=== PATIENT | male | born 1935 | race Caucasian/White ===

== ENCOUNTER 2016-07-23 13:01 | Emergency (ER) | payer MEDICARE ==
--- NOTE | 2016-07-23 14:25 | REP ---
CT HEAD WITHOUT CONTRAST: HISTORY: Fall. Areas of decreased attenuation are present in the periventricular white matter. This represents small vessel ischemic disease. There is no intraparenchymal hemorrhage, mass or midline shift. The ventricular system and cortical sulci are dilated consistent with minimal volume loss. There is no extracerebral collection. There is no fracture. Mucosal thickening is present in the ethmoid, maxillary and sphenoid sinuses. Soft tissue densities are present in the nasal passage consistent with polyps. IMPRESSION: 1. Small vessel ischemic disease. 2. Minimal volume loss. Signed by Blake Galvez MD 07/23/2016 02:31 P
--- NOTE | 2016-07-23 14:46 | REP ---
CT CERVICAL SPINE WITHOUT CONTRAST: HISTORY: Fall. There is no acute fracture or subluxation. A disc bulge is present at the C2-3 level. Disc bulges with associated osteophyte formation are present at the C3-4 through C6-7 levels. There is minimal narrowing of the spinal canal. Uncinate process and/or facet hypertrophy are present at the C2-3 through C7-T1 levels. These findings produce minimal to moderate narrowing of the neural foramina. The C3-4 through C6-7 intervertebral discs are decreased in height consistent with disc degeneration. Osteophytes are present on C3 through C7. IMPRESSION: 1. There is no acute fracture or subluxation. 2. There is cervical spondylosis at the C2-3 through C7-T1 levels. Signed by Blake Galvez MD 07/23/2016 02:49 P
[2016-07-23] MEDS ORDERED: PERCOCET 5MG/325MG TAB As Ordered ONE (15:00)
--- NOTE | 2016-07-23 15:22 | EDDOCDS ---
Nurse's Notes [facility] Name: Chan Miranda Age: 81 yrs Sex: Male : 1935 Arrival Date: 07/23/2016 Time: 13:01 Bed 18 Private MD: Dk Yu M.D. Diagnosis: Fall due to ice and snow;Concussion Presentation: 07/23 13:07 Presenting complaint: Patient states: [place] [employer] hit his head and dsf did have LOC for a few seconds. pt does take plavix. Adult Sepsis Screening: The patient does not have new or worsening altered mentation. Patient's respiratory rate is less than 22. Systolic blood pressure is greater than 100. Patient has a qSOFA score of 0- Negative Sepsis Screen. Suicide/Homicide risk assessment- the patient denies having any suicidal and/or homicidal ideations and does not present with any other emotional, behavioral or mental health complaints. Status: Patient is not a government services professional or dependent. Transition of care: patient was not received from another setting of care. 13:07 Method Of Arrival: Walkin/Carried/Asstd dsf 13:07 Acuity: DAVID Level 2 dsf Triage Assessment: 13:07 General: Appears in no apparent distress, Behavior is appropriate for age, cooperative. dsf Pain: Location: head Pain currently is 5 out of 10 on a pain scale. Quality of pain is described as aching. Neurological: Level of Consciousness is awake, alert. Respiratory: Airway is patent Respiratory effort is even, unlabored, Respiratory pattern is regular, symmetrical. Musculoskeletal: Reports pain in neck. Historical: - Allergies: no known allergies; - Home Meds: 1. aspirin 81 mg Oral TbEC 1 tab once daily (Last dose: 07/23/2016 09:30) 2. Plavix 75 mg Oral tab 1 tab once daily (Last dose: 07/23/2016 09:30) 3. symbicort 80-4.5 mcg 2 puff twice a day (Last dose: 07/23/2016 09:30) 4. omeprazole 20 mg Oral cpDR 1 cap once daily (Last dose: 07/22/2016) 5. Flonase 50 mcg/actuation Nasal spsn 2 sprays 2 times per day (Last dose: 07/23/2016 08:30) 6. DuoNeb 0.5 mg-3 mg(2.5 mg base)/3 mL Inhl nebu 3 mL 4 times per day (Last dose: 07/23/2016 08:30) 7. 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 No barriers to communication noted, The patient speaks fluent Icelandic, Speaks appropriately for age. - Family history: Not pertinent, Not pertinent. - : The pt / caregiver states he / she is on anticoagulants: Plavix. Home medication list is obtained from the patient. - Exposure Risk Screening:: None identified. Screenin:20 Screening information is obtained from the patient. Fall risk: At risk due to prior ck1 history of falls, The following interventions are performed due to a positive Fall Risk Screen: Fall Risk is added to Special Handling on the patient Summary Screen. A Fall Risk Bracelet was applied to the patient. Side Rails are placed in the up position. A Call Hunter is given with instruction to call for help when getting out of bed. Fall Alert bracelet is placed on the patient. Assistance ADL's: requires no assistance with activities of daily living. Abuse/DV Screen: The patient / caregiver reports he/she is: not in a situation that causes fear, pain or injury. Nutritional screening: No deficits noted. Advance Directives: There is no active DNR order. home support is adequate. Assessment: 14:15 General: Appears in no apparent distress, comfortable, Behavior is appropriate for age, mlb1 cooperative. Pain: Location: head and back of neck Pain currently is 5 out of 10 on a pain scale. Neurological: Level of Consciousness is awake, alert, Oriented to person, place, time, Pupils are PERRLA. Respiratory: No deficits noted. Derm: No deficits noted. 15:21 General: Appears in no apparent distress, comfortable, Behavior is appropriate for age, ck1 cooperative. Pain: Location: head Pain currently is 1 out of 10 on a pain scale. Neurological: Level of Consciousness is awake, alert, obeys commands, Oriented to person, place, time. Cardiovascular: No deficits noted. Respiratory: Respiratory effort is unlabored, Respiratory pattern is regular, symmetrical. Derm: Skin is intact, is healthy with good turgor, Skin is pink, warm & dry. Vital Signs: 13:02 BP 168 / 90; Pulse 87; Resp 18 S; Temp 96.4(O); Pulse Ox 95% on R/A; Weight 84.37 kg gr2 (R); Height 5 ft. 9 in. (175.26 cm) (R); Pain 3/10; 15:19 BP 155 / 75; Pulse 60; Resp 18; Temp 97.3(O); Pulse Ox 97% on R/A; Pain 1/10; ck1 13:02 Body Mass Index 27.47 (84.37 kg, 175.26 cm) gr2 Vitals: 13:02 Log In Time: July 23, 2016 at 13:02. gr2 ED Course: 13:02 Patient visited by Dean Hernandez. gr2 13:02 Dk Yu is Private Physician. gr2 13:02 Patient moved to Waiting gr2 13:04 Patient visited by Dean Hernandez. gr2 13:04 Patient moved to Pre RCE gr2 13:07 Triage Initiated dsf 13:11 Patient moved to 18 dsf 13:36 Azeb Joy MD is Attending Physician. fg 13:44 Patient visited by Maxime Ford PCA. jlf 14:28 Patient visited by Azeb Joy MD. fg 14:47 Dk Yu is Referral Physician. fg 14:50 CT Head Without Contrast Returned. EDMS 14:50 CT Spine,Cervical W/o Contrast Returned. EDMS 15:19 No IV's were initiated during this patient's visit. No procedures done that require ck1 assistance. 15:20 The patient / caregiver is instructed regarding the plan of care and ED course. ck1 Administered Medications: 14:59 CANCELLED (Other Intervention Used): ketorolac 15 mg IVP once fg 15:06 Drug: oxyCODONE-acetaminophen 1 tabs [oxycodone-acetaminophen 5 mg-325 mg tablet (1 ck1 tabs)] Route: PO; Order Results: Radiology Order: CT Head Without Contrast Test: CT Head Without Contrast REASON FOR EXAMINATION: fall, on plavix; CT HEAD WITHOUT CONTRAST:; ; HISTORY: Fall.; ; Areas of decreased attenuation are present in the periventricular white matter.; This represents small vessel ischemic disease. There is no intraparenchymal; hemorrhage, mass or midline shift. The ventricular system and cortical sulci are; dilated consistent with minimal volume loss. There is no extracerebral; collection. There is no fracture. Mucosal thickening is present in the ethmoid,; maxillary and sphenoid sinuses. Soft tissue densities are present in the nasal; passage consistent with polyps.; ; IMPRESSION:; ; 1. Small vessel ischemic disease.; ; 2. Minimal volume loss.; ; ; Signed by; Blake Galvez MD 07/23/2016 02:31 P; Radiology Order: CT Spine,Cervical W/o Contrast Test: CT Spine,Cervical W/o Contrast REASON FOR EXAMINATION: fall; ; CT CERVICAL SPINE WITHOUT CONTRAST:; ; HISTORY: Fall.; ; There is no acute fracture or subluxation. A disc bulge is present at the C2-3; level. Disc bulges with associated osteophyte formation are present at the C3-4; through C6-7 levels. There is minimal narrowing of the spinal canal.; ; Uncinate process and/or facet hypertrophy are present at the C2-3 through C7-T1; levels. These findings produce minimal to moderate narrowing of the neural; foramina. The C3-4 through C6-7 intervertebral discs are decreased in height; consistent with disc degeneration. Osteophytes are present on C3 through C7.; ; IMPRESSION:; 1. There is no acute fracture or subluxation.; 2. There is cervical spondylosis at the C2-3 through C7-T1 levels.; ; ; ; ; Unreviewed; Outcome: 14:48 Discharge ordered by Provider. fg 15:20 Discharge Assessment: Patient awake, alert and oriented x 3. No cognitive and/or ck1 functional deficits noted. Patient verbalized understanding of disposition instructions. patient administered narcotics - yes. Pt provided with safe discharge. The following High Risk Discharge criteria are identified: None. Discharged to home ambulatory, with significant other. Condition: stable. Discharge instructions given to patient, Instructed on discharge instructions, follow up and referral plans. medication usage, Demonstrated understanding of instructions, medications, Pt was receptive of discharge instructions/ teaching. CT Study completed. Property :Personal belongings accompany Pt. 15:21 Patient left the ED. ck1 Signatures: Dispatcher [facility], Raulito B, RN RN mlb1 Desire TrotterRN RN ck1 Suzy Saleh,RN RN dsf Dean Hernandez gr2 Maxime Ford, KIRK [employer]T ENGINEER jlf Azeb Joy MD MD fg Corrections: (The following items were deleted from the chart) 13:07 Presenting complaint: Patient states: fell in [employer] parking lot hit his head dsf and did have LOC for a few seconds dsf 13:07 Acuity: DAVID Level 3 dsf dsf MTDD
--- NOTE | 2016-07-23 15:22 | EDDOCDS ---
Physician Documentation [facility] Name: Chan Miranda Age: 81 yrs Sex: Male : 1935 Arrival Date: 07/23/2016 Time: 13:01 Bed 18 Private MD: Dk Yu M.D. Disposition: 07/23/16 14:48 Discharged to Home/Self Care. Impression: Fall due to ice and snow, Concussion. - Condition is Stable. - Discharge Instructions: Concussion, Adult, [id number]. - Medication Reconciliation, Local Pharmacy Hours form. - Follow up: Dk Yu; When: Call to arrange an appointment; Reason: Continuance of care. - Problem is new. - Symptoms have improved. Historical: - Allergies: no known allergies; - Home Meds: 1. aspirin 81 mg Oral TbEC 1 tab once daily (Last dose: 07/23/2016 09:30) 2. Plavix 75 mg Oral tab 1 tab once daily (Last dose: 07/23/2016 09:30) 3. symbicort 80-4.5 mcg 2 puff twice a day (Last dose: 07/23/2016 09:30) 4. omeprazole 20 mg Oral cpDR 1 cap once daily (Last dose: 07/22/2016) 5. Flonase 50 mcg/actuation Nasal spsn 2 sprays 2 times per day (Last dose: 07/23/2016 08:30) 6. DuoNeb 0.5 mg-3 mg(2.5 mg base)/3 mL Inhl nebu 3 mL 4 times per day (Last dose: 07/23/2016 08:30) 7. 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 No barriers to communication noted, The patient speaks fluent Honduran, Speaks appropriately for age. - Family history: Not pertinent, Not pertinent. - : The pt / caregiver states he / she is on anticoagulants: Plavix. Home medication list is obtained from the patient. - Exposure Risk Screening:: None identified. Vital Signs: 07/23 13:02 BP 168 / 90; Pulse 87; Resp 18 S; Temp 96.4(O); Pulse Ox 95% on R/A; Weight 84.37 kg / gr2 186 lbs (R); Height 5 ft. 9 in. (175.26 cm) (R); Pain 3/10; 15:19 BP 155 / 75; Pulse 60; Resp 18; Temp 97.3(O); Pulse Ox 97% on R/A; Pain 1/10; ck1 13:02 Body Mass Index 27.47 (84.37 kg, 175.26 cm) gr2 MDM: 13:38 CT Head Without Contrast Ordered. EDMS 13:59 CT Spine,Cervical W/o Contrast Ordered. EDMS 14:47 oxyCODONE-acetaminophen 5 mg-325 mg 1 tabs PO once ordered. fg Administered Medications: 14:59 CANCELLED (Other Intervention Used): ketorolac 15 mg IVP once fg 15:06 Drug: oxyCODONE-acetaminophen 1 tabs [oxycodone-acetaminophen 5 mg-325 mg tablet (1 ck1 tabs)] Route: PO; Signatures: Dispatcher [employer] EDMS Raulito Hoover RN RN mlb1 Desire Trotter RN RN ck1 Suzy Saleh RN RN dsf Azeb Joy MD MD fg The chart was reviewed and I authenticate all verbal orders and agree with the evaluation and treatment provided.Corrections: (The following items were deleted from the chart) 14:59 14:47 ketorolac 15 mg IVP once ordered. fg fg MTDD
--- NOTE | 2016-07-25 16:23 | EDDOCDS ---
Physician Documentation [facility] Name: Chan Miranda Age: 81 yrs Sex: Male : 1935 Arrival Date: 07/23/2016 Time: 13:01 Bed 18 Private MD: Dk Yu M.D. Disposition: 07/23/16 14:48 Discharged to Home/Self Care. Impression: Fall due to ice and snow, Concussion. - Condition is Stable. - Discharge Instructions: Concussion, Adult, [id number]. - Medication Reconciliation, Local Pharmacy Hours form. - Follow up: Dk Yu; When: Call to arrange an appointment; Reason: Continuance of care. - Problem is new. - Symptoms have improved. Historical: - Allergies: no known allergies; - Home Meds: 1. aspirin 81 mg Oral TbEC 1 tab once daily (Last dose: 07/23/2016 09:30) 2. Plavix 75 mg Oral tab 1 tab once daily (Last dose: 07/23/2016 09:30) 3. symbicort 80-4.5 mcg 2 puff twice a day (Last dose: 07/23/2016 09:30) 4. omeprazole 20 mg Oral cpDR 1 cap once daily (Last dose: 07/22/2016) 5. Flonase 50 mcg/actuation Nasal spsn 2 sprays 2 times per day (Last dose: 07/23/2016 08:30) 6. DuoNeb 0.5 mg-3 mg(2.5 mg base)/3 mL Inhl nebu 3 mL 4 times per day (Last dose: 07/23/2016 08:30) 7. 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 No barriers to communication noted, The patient speaks fluent Gibraltarian, Speaks appropriately for age. - Family history: Not pertinent, Not pertinent. - : The pt / caregiver states he / she is on anticoagulants: Plavix. Home medication list is obtained from the patient. - Exposure Risk Screening:: None identified. Vital Signs: 07/23 13:02 BP 168 / 90; Pulse 87; Resp 18 S; Temp 96.4(O); Pulse Ox 95% on R/A; Weight 84.37 kg / gr2 186 lbs (R); Height 5 ft. 9 in. (175.26 cm) (R); Pain 3/10; 15:19 BP 155 / 75; Pulse 60; Resp 18; Temp 97.3(O); Pulse Ox 97% on R/A; Pain 1/10; ck1 13:02 Body Mass Index 27.47 (84.37 kg, 175.26 cm) gr2 MDM: 13:38 CT Head Without Contrast Ordered. EDMS 13:59 CT Spine,Cervical W/o Contrast Ordered. EDMS 14:47 oxyCODONE-acetaminophen 5 mg-325 mg 1 tabs PO once ordered. fg 07/24 07:11 T-Sheet-- Draft Copy was scanned into [employer] and attached to record. gb Administered Medications: 07/23 14:59 CANCELLED (Other Intervention Used): ketorolac 15 mg IVP once fg 15:06 Drug: oxyCODONE-acetaminophen 1 tabs [oxycodone-acetaminophen 5 mg-325 mg tablet (1 ck1 tabs)] Route: PO; Signatures: Dispatcher [employer] EDAmelia Cruz, Félix Reg gb Raulito Hoover RN RN mlb1 Desire Trotter RN RN ck1 Suzy Saleh RN RN dsf Azeb Joy MD MD fg The chart was reviewed and I authenticate all verbal orders and agree with the evaluation and treatment provided.Corrections: (The following items were deleted from the chart) 14:59 14:47 ketorolac 15 mg IVP once ordered. fg fg Attachments: 07/24 07:11 T-Sheet-- Draft Copy gb Chart Complete MTDD
--- NOTE | 2016-07-25 16:23 | EDDOCDS ---
Nurse's Notes [facility] Name: Chan Miranda Age: 81 yrs Sex: Male : 1935 Arrival Date: 07/23/2016 Time: 13:01 Bed 18 Private MD: Dk Yu M.D. Diagnosis: Fall due to ice and snow;Concussion Presentation: 07/23 13:07 Presenting complaint: Patient states: [place] [employer] [place] hit his head and dsf did have LOC for a few seconds. pt does take plavix. Adult Sepsis Screening: The patient does not have new or worsening altered mentation. Patient's respiratory rate is less than 22. Systolic blood pressure is greater than 100. Patient has a qSOFA score of 0- Negative Sepsis Screen. Suicide/Homicide risk assessment- the patient denies having any suicidal and/or homicidal ideations and does not present with any other emotional, behavioral or mental health complaints. Status: Patient is not a director human services or dependent. Transition of care: patient was not received from another setting of care. 13:07 Method Of Arrival: Walkin/Carried/Asstd dsf 13:07 Acuity: DAVID Level 2 dsf Triage Assessment: 13:07 General: Appears in no apparent distress, Behavior is appropriate for age, cooperative. dsf Pain: Location: head Pain currently is 5 out of 10 on a pain scale. Quality of pain is described as aching. Neurological: Level of Consciousness is awake, alert. Respiratory: Airway is patent Respiratory effort is even, unlabored, Respiratory pattern is regular, symmetrical. Musculoskeletal: Reports pain in neck. Historical: - Allergies: no known allergies; - Home Meds: 1. aspirin 81 mg Oral TbEC 1 tab once daily (Last dose: 07/23/2016 09:30) 2. Plavix 75 mg Oral tab 1 tab once daily (Last dose: 07/23/2016 09:30) 3. symbicort 80-4.5 mcg 2 puff twice a day (Last dose: 07/23/2016 09:30) 4. omeprazole 20 mg Oral cpDR 1 cap once daily (Last dose: 07/22/2016) 5. Flonase 50 mcg/actuation Nasal spsn 2 sprays 2 times per day (Last dose: 07/23/2016 08:30) 6. DuoNeb 0.5 mg-3 mg(2.5 mg base)/3 mL Inhl nebu 3 mL 4 times per day (Last dose: 07/23/2016 08:30) 7. 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 No barriers to communication noted, The patient speaks fluent Wolof, Speaks appropriately for age. - Family history: Not pertinent, Not pertinent. - : The pt / caregiver states he / she is on anticoagulants: Plavix. Home medication list is obtained from the patient. - Exposure Risk Screening:: None identified. Screenin:20 Screening information is obtained from the patient. Fall risk: At risk due to prior ck1 history of falls, The following interventions are performed due to a positive Fall Risk Screen: Fall Risk is added to Special Handling on the patient Summary Screen. A Fall Risk Bracelet was applied to the patient. Side Rails are placed in the up position. A Call Hunter is given with instruction to call for help when getting out of bed. Fall Alert bracelet is placed on the patient. Assistance ADL's: requires no assistance with activities of daily living. Abuse/DV Screen: The patient / caregiver reports he/she is: not in a situation that causes fear, pain or injury. Nutritional screening: No deficits noted. Advance Directives: There is no active DNR order. home support is adequate. Assessment: 14:15 General: Appears in no apparent distress, comfortable, Behavior is appropriate for age, mlb1 cooperative. Pain: Location: head and back of neck Pain currently is 5 out of 10 on a pain scale. Neurological: Level of Consciousness is awake, alert, Oriented to person, place, time, Pupils are PERRLA. Respiratory: No deficits noted. Derm: No deficits noted. 15:21 General: Appears in no apparent distress, comfortable, Behavior is appropriate for age, ck1 cooperative. Pain: Location: head Pain currently is 1 out of 10 on a pain scale. Neurological: Level of Consciousness is awake, alert, obeys commands, Oriented to person, place, time. Cardiovascular: No deficits noted. Respiratory: Respiratory effort is unlabored, Respiratory pattern is regular, symmetrical. Derm: Skin is intact, is healthy with good turgor, Skin is pink, warm & dry. Vital Signs: 13:02 BP 168 / 90; Pulse 87; Resp 18 S; Temp 96.4(O); Pulse Ox 95% on R/A; Weight 84.37 kg gr2 (R); Height 5 ft. 9 in. (175.26 cm) (R); Pain 3/10; 15:19 BP 155 / 75; Pulse 60; Resp 18; Temp 97.3(O); Pulse Ox 97% on R/A; Pain 1/10; ck1 13:02 Body Mass Index 27.47 (84.37 kg, 175.26 cm) gr2 Vitals: 13:02 Log In Time: July 23, 2016 at 13:02. gr2 ED Course: 13:02 Patient visited by Dean Hernandez. gr2 13:02 Dk Yu is Private Physician. gr2 13:02 Patient moved to Waiting gr2 13:04 Patient visited by Dean Hernandez. gr2 13:04 Patient moved to Pre RCE gr2 13:07 Triage Initiated dsf 13:11 Patient moved to 18 dsf 13:36 Azeb Joy MD is Attending Physician. fg 13:44 Patient visited by Maxime Ford PCA. jlf 14:28 Patient visited by Azeb Joy MD. fg 14:47 Dk Yu is Referral Physician. fg 14:50 CT Head Without Contrast Returned. EDMS 14:50 CT Spine,Cervical W/o Contrast Returned. EDMS 15:19 No IV's were initiated during this patient's visit. No procedures done that require ck1 assistance. 15:20 The patient / caregiver is instructed regarding the plan of care and ED course. ck1 07/24 07:11 T-Sheet-- Draft Copy was scanned into [employer] and attached to record. gb Administered Medications: 07/23 14:59 CANCELLED (Other Intervention Used): ketorolac 15 mg IVP once fg 15:06 Drug: oxyCODONE-acetaminophen 1 tabs [oxycodone-acetaminophen 5 mg-325 mg tablet (1 ck1 tabs)] Route: PO; Order Results: Radiology Order: CT Head Without Contrast Test: CT Head Without Contrast REASON FOR EXAMINATION: fall, on plavix; CT HEAD WITHOUT CONTRAST:; ; HISTORY: Fall.; ; Areas of decreased attenuation are present in the periventricular white matter.; This represents small vessel ischemic disease. There is no intraparenchymal; hemorrhage, mass or midline shift. The ventricular system and cortical sulci are; dilated consistent with minimal volume loss. There is no extracerebral; collection. There is no fracture. Mucosal thickening is present in the ethmoid,; maxillary and sphenoid sinuses. Soft tissue densities are present in the nasal; passage consistent with polyps.; ; IMPRESSION:; ; 1. Small vessel ischemic disease.; ; 2. Minimal volume loss.; ; ; Signed by; Blake Galvez MD 07/23/2016 02:31 P; Radiology Order: CT Spine,Cervical W/o Contrast Test: CT Spine,Cervical W/o Contrast REASON FOR EXAMINATION: fall; CT CERVICAL SPINE WITHOUT CONTRAST:; ; HISTORY: Fall.; ; There is no acute fracture or subluxation. A disc bulge is present at the C2-3; level. Disc bulges with associated osteophyte formation are present at the C3-4; through C6-7 levels. There is minimal narrowing of the spinal canal. Uncinate; process and/or facet hypertrophy are present at the C2-3 through C7-T1 levels.; These findings produce minimal to moderate narrowing of the neural foramina. The; C3-4 through C6-7 intervertebral discs are decreased in height consistent with; disc degeneration. Osteophytes are present on C3 through C7.; ; IMPRESSION:; ; 1. There is no acute fracture or subluxation.; ; 2. There is cervical spondylosis at the C2-3 through C7-T1 levels.; ; ; Signed by; Blake Galvez MD 07/23/2016 02:49 P; Outcome: 14:48 Discharge ordered by Provider. fg 15:20 Discharge Assessment: Patient awake, alert and oriented x 3. No cognitive and/or ck1 functional deficits noted. Patient verbalized understanding of disposition instructions. patient administered narcotics - yes. Pt provided with safe discharge. The following High Risk Discharge criteria are identified: None. Discharged to home ambulatory, with significant other. Condition: stable. Discharge instructions given to patient, Instructed on discharge instructions, follow up and referral plans. medication usage, Demonstrated understanding of instructions, medications, Pt was receptive of discharge instructions/ teaching. CT Study completed. Property :Personal belongings accompany Pt. 15:21 Patient left the ED. ck1 Signatures: Dispatcher [employer] EDMS Amelia Zamora, Reg Reg gb Sheffield, Raulito Ro, RN RN mlb1 Desire TrotterRN RN ck1 Suzy Saleh RN RN dsf Dean Hernandez gr2 Maxime Ford, BRIQUETTE MOLDER BRIQUETTE MOLDER jlf Azeb Joy MD MD fg Corrections: (The following items were deleted from the chart) 13:07 Presenting complaint: Patient states: fell in [employer] [facility] [place] lot hit his head dsf and did have LOC for a few seconds dsf 13: 13:07 Acuity: DAVID Level 3 dsf dsf Chart Complete MTDD
--- NOTE | 2016-07-25 16:23 | EDDOCDS ---
Physician Documentation [facility] Name: Chan Miranda Age: 81 yrs Sex: Male : 1935 Arrival Date: 07/23/2016 Time: 13:01 Bed 18 Private MD: Dk Yu M.D. Disposition: 07/23/16 14:48 Discharged to Home/Self Care. Impression: Fall due to ice and snow, Concussion. - Condition is Stable. - Discharge Instructions: Concussion, Adult, [id number]. - Medication Reconciliation, Local Pharmacy Hours form. - Follow up: Dk Yu; When: Call to arrange an appointment; Reason: Continuance of care. - Problem is new. - Symptoms have improved. Historical: - Allergies: no known allergies; - Home Meds: 1. aspirin 81 mg Oral TbEC 1 tab once daily (Last dose: 07/23/2016 09:30) 2. Plavix 75 mg Oral tab 1 tab once daily (Last dose: 07/23/2016 09:30) 3. symbicort 80-4.5 mcg 2 puff twice a day (Last dose: 07/23/2016 09:30) 4. omeprazole 20 mg Oral cpDR 1 cap once daily (Last dose: 07/22/2016) 5. Flonase 50 mcg/actuation Nasal spsn 2 sprays 2 times per day (Last dose: 07/23/2016 08:30) 6. DuoNeb 0.5 mg-3 mg(2.5 mg base)/3 mL Inhl nebu 3 mL 4 times per day (Last dose: 07/23/2016 08:30) 7. 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 No barriers to communication noted, The patient speaks fluent Fijian, Speaks appropriately for age. - Family history: Not pertinent, Not pertinent. - : The pt / caregiver states he / she is on anticoagulants: Plavix. Home medication list is obtained from the patient. - Exposure Risk Screening:: None identified. Vital Signs: 07/23 13:02 BP 168 / 90; Pulse 87; Resp 18 S; Temp 96.4(O); Pulse Ox 95% on R/A; Weight 84.37 kg / gr2 186 lbs (R); Height 5 ft. 9 in. (175.26 cm) (R); Pain 3/10; 15:19 BP 155 / 75; Pulse 60; Resp 18; Temp 97.3(O); Pulse Ox 97% on R/A; Pain 1/10; ck1 13:02 Body Mass Index 27.47 (84.37 kg, 175.26 cm) gr2 MDM: 13:38 CT Head Without Contrast Ordered. EDMS 13:59 CT Spine,Cervical W/o Contrast Ordered. EDMS 14:47 oxyCODONE-acetaminophen 5 mg-325 mg 1 tabs PO once ordered. fg 07/24 07:11 T-Sheet-- Draft Copy was scanned into [employer] and attached to record. gb Administered Medications: 07/23 14:59 CANCELLED (Other Intervention Used): ketorolac 15 mg IVP once fg 15:06 Drug: oxyCODONE-acetaminophen 1 tabs [oxycodone-acetaminophen 5 mg-325 mg tablet (1 ck1 tabs)] Route: PO; Signatures: Dispatcher [employer] EDAmelia Cruz, Félix Reg gb Raulito Hoover RN RN mlb1 Desire Trotter RN RN ck1 Suzy Saleh RN RN dsf Azeb Joy MD MD fg The chart was reviewed and I authenticate all verbal orders and agree with the evaluation and treatment provided.Corrections: (The following items were deleted from the chart) 14:59 14:47 ketorolac 15 mg IVP once ordered. fg fg Attachments: 07/24 07:11 T-Sheet-- Draft Copy gb Chart Complete MTDD
== END 2016-07-23 15:21 | disposition home or self-care (01) ==
LOC: M ED 13:01
DX: S06.0X0A Concussion without loss of consciousness, initial encounter (principal); W00.9XXA Unspecified fall due to ice and snow, initial encounter; Y92.512 Supermarket, store or market as the place of occurrence of the external cause; Y93.89 Activity, other specified; Y99.8 Other external cause status; J44.9 Chronic obstructive pulmonary disease, unspecified; J45.909 Unspecified asthma, uncomplicated; K21.9 Gastro-esophageal reflux disease without esophagitis; Z86.73 Personal history of transient ischemic attack (TIA), and cerebral infarction without residual deficits; Z79.02 Long term (current) use of antithrombotics/antiplatelets; Z79.51 Long term (current) use of inhaled steroids; Z79.82 Long term (current) use of aspirin; Z79.899 Other long term (current) drug therapy

== ENCOUNTER → 2016-08-18 | Outpatient (CLI) | payer MEDICARE ==
[~2016-08-18] MED LIST: ISOVUE-370 76% 100ML VIAL (Q9967) As Ordered ONE
--- NOTE | 2016-08-18 10:09 | REP ---
CT STUDY OF THE CHEST WITH IV CONTRAST: HISTORY: Abnormal lung field findings. Comparison chest CT study is from January 24, 2016. Comparison studies are reviewed from April 29, 2015 and June 20, 2010. CT contrast dose: 75 mL of Isovue [address] FINDINGS: There is a large heterogeneously enhancing left infrahilar mass again noted. On today's exam this measures 9.9 cm in greatest oblique craniocaudal dimension x 6.3 cm x 9.3 cm. This is larger than on the January 24, 2016 prior study. There is bilateral hilar and mediastinal lymphadenopathy. These nodes are slightly more prominent than on the most recent prior study as well. There is a right paratracheal lymph node at the level of the azygos venous arch measuring 11 mm in short axis dimension today, previously 7 mm. No adrenal lesion is seen. Visualized upper abdominal structures are remarkable for gallstone but otherwise negative. There is no CT evidence of pulmonary embolus or aortic vascular abnormality. There is calcific pleural plaquing bilaterally in the anterior chest wall. This is unchanged from prior studies. There is a stable 8 mm nodule in the left lower lobe. This is unchanged from the 2010 study. There are some stable fibrotic changes in the bases. There is a granulomatous calcified nodule in the right lower lobe unchanged. A stable soft tissue nodule is seen in the right middle lobe unchanged from 2010 as well measuring 7 mm in diameter. There is another stable pulmonary nodule in the left upper lobe measuring 5 mm. There is also a stable 4 mm left upper lobe nodule. No bony destructive lesion is seen. IMPRESSION: 1. Heterogeneously enhancing, gradually enlarging, 9.9 cm mass in the left lower lobe with some increase in mediastinal lymphadenopathy suspicious for primary lung malignancy. 2. Multiple stable scattered noncalcified pulmonary nodules. Calcific pleural plaquing is seen. Some basilar fibrosis is noted. 3. Cholelithiasis. Signed by Garo Alvarez MD 08/18/2016 12:31 P
== END ==
LOC: M RAD 09:10
PROVIDERS: ATTEND Internal Medicine Pulmonary Disease
DX: R91.8 Other nonspecific abnormal finding of lung field (principal)
CPT/HCPCS: 71260; Q9967

== ENCOUNTER → 2016-08-31 | Outpatient (REF) | payer MEDICARE ==
[2016-08-31 12:24] LABS: INR 1.01
== END ==
LOC: M LAB REF 11:55
PROVIDERS: ATTEND Thoracic Surgery (Cardiothoracic Vascular Surgery)
DX: Z01.812 Encounter for preprocedural laboratory examination (principal); R22.2 Localized swelling, mass and lump, trunk; Z79.01 Long term (current) use of anticoagulants

== ENCOUNTER → 2016-09-04 | Outpatient (CLI) | payer MEDICARE ==
[~2016-09-04] MED LIST changes: -ISOVUE-370 76% 100ML VIAL (Q9967) As Ordered ONE; +LIDOCAINE 1% MDV 20ML VIAL As Ordered ONE
--- NOTE | 2016-09-04 12:42 | REP ---
POSTBIOPSY CHEST: Single view of the chest is performed status post left lung biopsy. There is no pneumothorax. Abnormal left lower lobe opacity is again seen. IMPRESSION: No pneumothorax status post left lung biopsy. Signed by Carlos Wells MD 09/04/2016 06:31 P
--- NOTE | 2016-09-04 18:17 | REP ---
CT GUIDED BIOPSY LEFT LUNG MASS: The patient was referred for CT guided biopsy of left lung mass. The procedure was explained in detail to the patient as well as the risks which include, but are not limited to hemorrhage, infection, and pneumothorax. Informed consent was obtained. Under sterile conditions and after satisfactory administration of local anesthesia, using CT guidance a 19-guage introducer needle is placed into the left lower lobe mass. Using coaxial technique, a 20-guage biopsy gun is inserted and four core biopsy samples are obtained without difficulty. The needles were removed. Hemostasis was obtained. There was no immediate complication. Immediate postprocedure images show no pneumothorax. The patient was observed for two hours prior to discharge. A chest radiograph just prior to discharge showed no pneumothorax. The patient was discharged in stable condition. Signed by Carlos Wells MD 09/04/2016 06:32 P
== END | disposition home or self-care (01) ==
LOC: M RADPRO 08:16
PROVIDERS: ATTEND Thoracic Surgery (Cardiothoracic Vascular Surgery)
DX: D38.1 Neoplasm of uncertain behavior of trachea, bronchus and lung (principal); Z79.899 Other long term (current) drug therapy; J45.909 Unspecified asthma, uncomplicated; K21.9 Gastro-esophageal reflux disease without esophagitis; H40.1290 Low-tension glaucoma, unspecified eye, stage unspecified; K57.30 Diverticulosis of large intestine without perforation or abscess without bleeding

== ENCOUNTER → 2016-10-28 | Outpatient (CLI) | payer MEDICARE ==
--- NOTE | 2016-10-29 13:55 | REP ---
LUNG DIFFERENTIAL VENTILATION AND PERFUSION SCAN: Following the intravenous administration of 1 mCi of technetium-99m tagged MAA and the inhalation of 2 mCi of technetium-99m DTPA aerosol, images of the lungs are obtained in the anterior and posterior projections. Large matching ventilation and perfusion defect is seen in the left lung base. Differential counts are obtained in the upper, middle, and lower thirds of the lungs. The mean perfusion of the left lung is 34.6% and the mean perfusion of the right lung is 65.4%. The mean ventilation of the left lung is 39.5% and of the right lung is 60.5%. Signed by Carlos Wells MD 10/30/2016 03:15 P
== END ==
LOC: M RAD 10:14
PROVIDERS: ATTEND Thoracic Surgery (Cardiothoracic Vascular Surgery)
DX: C34.90 Malignant neoplasm of unspecified part of unspecified bronchus or lung (principal)
CPT/HCPCS: 78598; A9540; A9567

== ENCOUNTER 2016-12-25 06:48 | Emergency (ER) | payer MEDICARE ==
[~2016-12-25] VITALS: Ht 172.7 cm; Wt 89.8 kg
[2016-12-25] MEDS ORDERED: ASPI1TAB PO (07:05)
[2016-12-25] MEDS ORDERED: COLA100C3 PO (07:05)
[2016-12-25] MEDS ORDERED: FLON1SPR (07:05)
[2016-12-25] MEDS ORDERED: DuoNeb INH (07:05)
[2016-12-25] MEDS ORDERED: OXYC-517 PO (07:05)
[2016-12-25] MEDS ORDERED: DICL1POW30 PO (07:05)
[2016-12-25] MEDS ORDERED: BACL10TA2 PO (07:05)
[2016-12-25] MEDS ORDERED: BIMA01SOL OU (07:05)
[2016-12-25] MEDS ORDERED: SYMB80INH INH (07:05)
[2016-12-25] MEDS ORDERED: OMEP20CA3 PO (07:05)
[2016-12-25] MEDS ORDERED: LIDO5DIS36 TD (07:05)
[2016-12-25] MEDS ORDERED: PLAV75TA38 PO (07:05)
[2016-12-25] MEDS ORDERED: GABA-279 PO (07:05)
[2016-12-25] MEDS ORDERED: FLOM5CAP PO (07:05)
[2016-12-25 08:01] LABS: BASO # 0.1 K/mm3 (0.0-0.2); BASO % 0.6 % (0.0-1.0); EOS # 0.5 K/mm3 (0.0-0.50); EOS % 4.8 % (0.0-3.0); LARGE UNSTAINED CELL # 0.1 K/mm3 (0.0-0.4); LARGE UNSTAINED CELL % 1.2 % (0.0-4.0); LYMPH # 1.4 K/mm3 (1.5-4.5); LYMPH % 12.1 % (24.0-44.0); MEAN CORPUSCULAR HEMOGLOBIN 27.3 pg (27.0-33.0); MEAN CORPUSCULAR HGB CONC 32.5 g/dl (32.0-36.5); MEAN CORPUSCULAR VOLUME 83.9 fl (80.0-96.0); MONO # 0.7 K/mm3 (0.0-0.8); MONO % 6.2 % (0.0-5.0); PLATELET COUNT, AUTOMATED 363 k/mm3 (150-450); RED CELL DISTRIBUTION WIDTH 14.6 % (11.5-14.5); WHITE BLOOD COUNT 10.7 K/mm3 (4.0-10.0)
[2016-12-25 08:08] LABS: INR 1.1
[2016-12-25 08:21] LABS: ALBUMIN 2.4 GM/DL (3.2-5.2); ALBUMIN/GLOBULIN RATIO 0.69 (1.00-1.93); ALKALINE PHOSPHATASE 162 U/L (45-117); ALT/SGPT 43 U/L (12-78); ANION GAP 8 MEQ/L (8-16); AST/SGOT 31 U/L (15-37); BILIRUBIN,DIRECT 0.1 MG/DL (0.0-0.2); BILIRUBIN,TOTAL 0.3 MG/DL (0.2-1.0); BLOOD UREA NITROGEN 12 MG/DL (7-18); CALCIUM LEVEL 7.9 MG/DL (8.8-10.2); CARBON DIOXIDE LEVEL 27 MEQ/L (21-32); CHLORIDE LEVEL 101 MEQ/L (98-107); GLOMERULAR FILTRATION RATE > 60.0 (>42); GLUCOSE, FASTING 113 MG/DL (83-110); POTASSIUM SERUM 4.4 MEQ/L (3.5-5.1); SODIUM LEVEL 136 MEQ/L (136-145); TOTAL PROTEIN 5.9 GM/DL (6.4-8.2)
--- NOTE | 2016-12-25 08:50 | REP ---
Acute abdominal series three views including upright PA chest and supine upright abdomen: Upright PA chest: Comparison is 2016. There is a larger left hydropneumothorax as an interval change. There is no mediastinal shift. Right lung is clear. Cardiac size cannot be assessed as the left cardiac margin is obscured. There is no free subdiaphragmatic air. Impression: Large left hydropneumothorax as an interval change. Abdomen, supine and upright views: Comparison is the supine abdomen dated 01/14/2016. The bowel gas pattern is normal. There is a right upper quadrant calcification, unchanged, likely a gallbladder calculus. There are calcifications in the pelvis, unchanged, likely phleboliths. There is a density superimposed over the sacrum as an interval change, possibly inspissated barium in a colonic diverticulum. On a CT dated 01/04/2016. There are bilateral nonobstructive renal calculi. There was an obstructive calculus in the proximal left ureter. These calculi are not identified on the plain film study today, however, there is a large volume of fecal residue obscuring the renal areas. There is demineralization, multilevel lumbar vertebral body compression deformity and multilevel lumbar degenerative disc disease. Impression: Abdominal right upper quadrant, calculus, likely gallbladder calculus. The renal areas are obscured by significant bowel gas. The previously identified renal and ureteral calculi are not identified on the study today. Signed by Carlos Jeronimo MD 12/25/2016 08:42 A
[2016-12-25] MEDS ORDERED: fentaNYL 100 MCG/2 ML INJECTION (J3010) IV ONE (11:00)
[2016-12-25] MEDS ORDERED: ISOVUE-370 76% 100ML VIAL (Q9967) As Ordered ONE (11:11)
--- NOTE | 2016-12-25 12:00 | ECGEPIP ---
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
--- NOTE | 2016-12-25 12:33 | REP ---
CT PULMONARY ANGIOGRAM: With IV contrast. HISTORY: Mild shortness of breath. Recent pneumonectomy. COMPARISON STUDIES: Comparison CT study August 18, 2016. Contrast dose: 100 mL of Isovue [address] TECHNIQUE: Helical scanning is acquired and overlapping 1.5 mm and contiguous 3 mm axial images are reformatted. In addition, a 3D work station is deployed to generate thick slab maximum intensity projection images in sagittal and coronal imaging projections. CT PULMONARY ANGIOGRAPHIC FINDINGS: There is good opacification of the pulmonary arterial tree in the right hemithorax. There is no CT evidence of pulmonary embolism. Maximum intensity projection images show no vessel cutoff or filling defect in the right chest. The patient is status post left pneumonectomy. Expected left-sided hydropneumothorax is seen with a large air fluid level. There is fairly extensive extrathoracic soft tissue emphysema as well consistent with recent postoperative changes. There are multiple partially calcified benign appearing pleural plaques in the right anterior chest again noted. No right lung mass lesion is seen. The previously noted left mediastinal lymph nodes have been resected. There are several pretracheal lymph nodes again seen unchanged. No right pleural effusion is seen. No new infiltrate is seen. The thoracic aorta enhances homogeneously. A bovine arch configuration is noted. Left lateral 6th and left posterior 7th rib fractures are noted. IMPRESSION: 1. No CT evidence of pulmonary embolus. 2. Status post left pneumonectomy with recent postoperative changes including hydropneumothorax on the left and extrathoracic soft tissue air. 3. There is a left lateral 6th rib fracture and a left posterior 7th rib fracture. Signed by Garo Alvarez MD 12/25/2016 01:22 P
--- NOTE | 2016-12-25 12:44 | REP ---
CT ABDOMEN AND PELVIS WITH IV BUT WITHOUT ORAL CONTRAST: HISTORY: Abdominal distension mild lower abdominal discomfort. Recent left pneumonectomy. CT contrast dose: 100 mL of Isovue [address] FINDINGS: A low post pneumonectomy hydropneumothorax is seen on the left with extrathoracic soft tissue gas and some postoperative fluid in the left flank extrathoracic musculature. No intra-abdominal fluid collection or free air is seen. A calcified 1.1 cm gallstone is seen in the dependent portion the gallbladder. No pancreatic lesion is seen. No definite splenic lesion is seen. There are tiny cortical cysts bilaterally in the kidneys. There is an intrarenal calculus in the upper pole of the right kidney measuring 3 mm. No hydronephrosis is seen. No retroperitoneal mass or adenopathy is observed. The adrenal glands are normal. No small or large bowel abnormality is seen. Normal appendix is seen. There is left colonic diverticulosis without CT evidence of diverticulitis. These are fairly numerous in the left colon. No abdominal wall defect is seen. Bone window settings show no bony destructive lesion. IMPRESSION: Status post left pneumonectomy changes with residual postoperative air and fluid in the left lateral flank. Cholelithiasis. Intrarenal nephrolithiasis upper pole right kidney. No hydronephrosis. Extensive left colonic diverticulosis. Signed by Garo Alvarez MD 12/25/2016 01:22 P
[2016-12-25 14:13] VITALS: BP 145/74
== END 2016-12-25 14:28 | disposition home or self-care (01) ==
LOC: M ED 07:26
DX: R06.02 Shortness of breath (principal); Z98.890 Other specified postprocedural states; Z90.2 Acquired absence of lung [part of]; R14.0 Abdominal distension (gaseous); J44.9 Chronic obstructive pulmonary disease, unspecified; J45.909 Unspecified asthma, uncomplicated; E16.2 Hypoglycemia, unspecified; K57.92 Diverticulitis of intestine, part unspecified, without perforation or abscess without bleeding; Z85.118 Personal history of other malignant neoplasm of bronchus and lung; Z79.899 Other long term (current) drug therapy; Z79.82 Long term (current) use of aspirin; Z79.02 Long term (current) use of antithrombotics/antiplatelets
CPT/HCPCS: 71275; 74022; 74177; 80048; 80076; 81001; 82550; 82553; 83605; 83690; 83880; 84484; 85025; 85610; 87040; 93005; 93041; 96374; 99285; J3010; Q9967

== ENCOUNTER 2016-12-27 09:10 | Emergency (ER) | payer MEDICARE ==
[~2016-12-27 09:10] MED LIST changes: +ASPI1TAB PO; +BACL10TA2 PO; +BIMA01SOL OU; +COLA100C3 PO; +DICL1POW30 PO; +DuoNeb INH; +FLOM5CAP PO; +FLON1SPR; +GABA-279 PO; +LIDO5DIS36 TD; -LIDOCAINE 1% MDV 20ML VIAL As Ordered ONE; +OMEP20CA3 PO; +OXYC-517 PO; +PLAV75TA38 PO; +SYMB80INH INH
[2016-12-27 09:32] VITALS: BP 140/67
[2016-12-27 10:20] LABS: BASO % 0.5 % (0.0-1.0); EOS # 0.4 K/mm3 (0.0-0.50); EOS % 4.7 % (0.0-3.0); LARGE UNSTAINED CELL # 0.1 K/mm3 (0.0-0.4); LARGE UNSTAINED CELL % 1.2 % (0.0-4.0); LYMPH # 1.2 K/mm3 (1.5-4.5); LYMPH % 11.6 % (24.0-44.0); MEAN CORPUSCULAR HEMOGLOBIN 27.7 pg (27.0-33.0); MEAN CORPUSCULAR HGB CONC 33.4 g/dl (32.0-36.5); MEAN CORPUSCULAR VOLUME 82.9 fl (80.0-96.0); MONO # 0.5 K/mm3 (0.0-0.8); MONO % 5.3 % (0.0-5.0); NEUTROPHILS # 7.4 K/mm3 (1.8-7.7); NEUTROPHILS % 76.8 % (36.0-66.0); PLATELET COUNT, AUTOMATED 366 k/mm3 (150-450); RED CELL DISTRIBUTION WIDTH 14.5 % (11.5-14.5); WHITE BLOOD COUNT 9.6 K/mm3 (4.0-10.0)
[2016-12-27 10:30] LABS: ANION GAP 8 MEQ/L (8-16); BLOOD UREA NITROGEN 16 MG/DL (7-18); CALCIUM LEVEL 8.3 MG/DL (8.8-10.2); CARBON DIOXIDE LEVEL 27 MEQ/L (21-32); CHLORIDE LEVEL 102 MEQ/L (98-107); CREATININE FOR GFR 0.92 MG/DL (0.70-1.30); GLOMERULAR FILTRATION RATE > 60.0 (>42); GLUCOSE, FASTING 109 MG/DL (83-110); POTASSIUM SERUM 4.3 MEQ/L (3.5-5.1); SODIUM LEVEL 137 MEQ/L (136-145)
[2016-12-27 10:40] LABS: INR 1.03
[2016-12-27] MEDS ORDERED: fentaNYL 100 MCG/2 ML INJECTION (J3010) IV ONE (14:00)
== END 2016-12-27 14:47 | disposition home or self-care (01) ==
LOC: M ED 10:04
DX: R20.2 Paresthesia of skin (principal); J44.9 Chronic obstructive pulmonary disease, unspecified; J45.909 Unspecified asthma, uncomplicated; K57.90 Diverticulosis of intestine, part unspecified, without perforation or abscess without bleeding; Z86.73 Personal history of transient ischemic attack (TIA), and cerebral infarction without residual deficits; Z85.118 Personal history of other malignant neoplasm of bronchus and lung; Z90.2 Acquired absence of lung [part of]
CPT/HCPCS: 36415; 70450; 70551; 71010; 80048; 85025; 85610; 85730; 93005; 93041; 94760; 96374; 99284; J3010

== ENCOUNTER → 2017-04-07 | Outpatient (REF) | payer MEDICARE ==
[~2017-04-07] MED LIST changes: -COLA100C3 PO; +COLA100C5 PO; -LIDO5DIS36 TD; +LIDO5DIS41 TD; +PLAV1TAB2 PO; -PLAV75TA38 PO
[2017-04-07 22:04] LABS: BANDS 1 % (< 11); BASOPHILS 2 % (0-4); EOSINOPHILS 10 % (0-5)
[2017-04-07 22:06] LABS: PLATELET CLUMPS MODERATE AMT
[2017-04-07 22:07] LABS: ANISOCYTOSIS 1+; MICROCYTOSIS 1+
== END ==
LOC: M LAB REF 13:04
PROVIDERS: ATTEND Family Medicine
DX: D72.9 Disorder of white blood cells, unspecified (principal)

== ENCOUNTER → 2017-04-12 | Outpatient (REF) | payer MEDICARE ==
[2017-04-12 21:26] LABS: REASON FOR REVIEW COMPREHENSIVE REVIEW
== END ==
LOC: M LAB REF 16:40
PROVIDERS: ATTEND Family Medicine
DX: D72.819 Decreased white blood cell count, unspecified (principal)

== ENCOUNTER → 2017-09-24 | Outpatient (CLI) | payer MEDICARE | LOC: M RAD 12:52 | DX: R07.89 Other chest pain (principal) | CPT/HCPCS: 71046 ==

== ENCOUNTER 2017-10-16 21:04 | Inpatient (IN) | payer MEDICARE ==
[2017-10-16] MEDS: SYMBICORT 80/4.5MCG INHALER 6GM INH (20:00)
[2017-10-16 22:08] LABS: BASO % 0.6 % (0.0-1.0); EOS # 0.5 10^3/uL (0.0-0.50); EOS % 7.4 % (0.0-3.0); HEMATOCRIT 38.9 % (42.0-52.0); HEMOGLOBIN 12.6 g/dl (13.5-17.5); IMMATURE GRANULOCYTE % 0.2 % (0-3.0); LYMPH # 1.6 10^3/uL (1.5-4.5); MEAN CORPUSCULAR HEMOGLOBIN 26.3 pg (27.0-33.0); MEAN CORPUSCULAR HGB CONC 32.4 g/dl (32.0-36.5); MONO # 0.6 10^3/uL (0.0-0.8); MONO % 9.1 % (0.0-5.0); NEUTROPHILS # 3.6 10^3/uL (1.8-7.7); NEUTROPHILS % 57.7 % (36.0-66.0); PLATELET COUNT, AUTOMATED 255 10^3/uL (150-450); RED CELL DISTRIBUTION WIDTH 15.5 % (11.5-14.5); WHITE BLOOD COUNT 6.2 10^3/uL (4.0-10.0)
[2017-10-16 22:16] LABS: INR 1.03; PROTHROMBIN TIME 13.6 SECONDS (12.4-14.5)
[2017-10-16 22:17] LABS: PARTIAL THROMBOPLASTIN TIME 27.7 SECONDS (26.8-37.9)
[2017-10-16 22:25] LABS: ANION GAP 3 MEQ/L (8-16); BLOOD UREA NITROGEN 18 MG/DL (7-18); CALCIUM LEVEL 8.6 MG/DL (8.8-10.2); CARBON DIOXIDE LEVEL 30 MEQ/L (21-32); CHLORIDE LEVEL 108 MEQ/L (98-107); CREATININE FOR GFR 1.21 MG/DL (0.70-1.30); GLOMERULAR FILTRATION RATE > 60.0 (>35); GLUCOSE, FASTING 96 MG/DL (70-100); POTASSIUM SERUM 4.2 MEQ/L (3.5-5.1); SODIUM LEVEL 141 MEQ/L (136-145)
[2017-10-17] MEDS ORDERED: IPRATROPIUM 0.5MG/ALBUTEROL 2.5MG INH SOL UD 3ML (DUONEB)(J7620) NEB
[2017-10-17] MEDS ORDERED: ISOVUE-370 76% 100ML VIAL (Q9967) As Ordered (00:15)
[2017-10-17 01:06] LABS: CK-MB VALUE MASS 5.7 NG/ML (<3.6); CPK CREATINE PHOSPHOKINASE 200 U/L (39-308); MB/CK RELATIVE INDEX 2.85 (< OR =4); TROPONIN I < 0.02 NG/ML (< 0.10)
[2017-10-17 01:07] LABS: T UPTAKE 33 % (33-40); THYROXINE (T4) 9.1 UG/DL (4.5-12.0)
[2017-10-17] MEDS: DOCUSATE SODIUM 100 MG CAP PO ×3 (01:09→08:40)
[2017-10-17] MEDS: ATORVASTATIN 20 MG TAB PO ×2 (01:10)
[2017-10-17] MEDS: GABAPENTIN 100 MG CAP PO ×3 (01:10→08:40)
[2017-10-17] MEDS: FLUTICASONE PROP 0.05% NASAL SPRAY 16 GM (FLONASE) ×3 (01:11→08:40)
[2017-10-17] MEDS: OMEPRAZOLE 20 MG CAP PO ×2 (01:11)
[2017-10-17] MEDS: NS 1,000 ML IV ×2 (01:12)
[2017-10-17] MEDS: IPRATROPIUM 0.5MG/ALBUTEROL 2.5MG INH SOL UD 3ML (DUONEB)(J7620) NEB ×3 (01:52→13:09)
[2017-10-17 07:09] LABS: HEMATOCRIT 38.9 % (42.0-52.0); HEMOGLOBIN 12.4 g/dl (13.5-17.5); MEAN CORPUSCULAR HEMOGLOBIN 25.7 pg (27.0-33.0); MEAN CORPUSCULAR HGB CONC 31.9 g/dl (32.0-36.5); MEAN CORPUSCULAR VOLUME 80.7 fl (80.0-96.0); PLATELET COUNT, AUTOMATED 235 10^3/uL (150-450); RED BLOOD COUNT 4.82 10^6/uL (4.30-6.10); RED CELL DISTRIBUTION WIDTH 15.4 % (11.5-14.5); WHITE BLOOD COUNT 6.3 10^3/uL (4.0-10.0)
[2017-10-17 07:36] LABS: ALKALINE PHOSPHATASE 111 U/L (45-117); ALT/SGPT 13 U/L (12-78); ANION GAP 4 MEQ/L (8-16); AST/SGOT 14 U/L (7-37); BILIRUBIN,TOTAL 0.7 MG/DL (0.2-1.0); BLOOD UREA NITROGEN 16 MG/DL (7-18); CALCIUM LEVEL 8.2 MG/DL (8.8-10.2); CARBON DIOXIDE LEVEL 27 MEQ/L (21-32); CHLORIDE LEVEL 109 MEQ/L (98-107); CHOLESTEROL LEVEL 159 MG/DL (<200); CHOLESTEROL RISK RATIO 2.741 (<5); CPK CREATINE PHOSPHOKINASE 165 U/L (39-308); CREATININE FOR GFR 1.01 MG/DL (0.70-1.30); GLOMERULAR FILTRATION RATE > 60.0 (>35); GLUCOSE, FASTING 88 MG/DL (70-100); HDL CHOLESTEROL 58 MG/DL (>40); LDL CHOLESTEROL 87.8 MG/DL (<100); MAGNESIUM LEVEL 2.2 MG/DL (1.8-2.4); NON-HDL-C 101 MG/DL; POTASSIUM SERUM 3.9 MEQ/L (3.5-5.1); SODIUM LEVEL 140 MEQ/L (136-145); TOTAL PROTEIN 7.3 GM/DL (6.4-8.2); TRIGLYCERIDES LEVEL 66 MG/DL (<150); TROPONIN I < 0.02 NG/ML (< 0.10)
[2017-10-17 07:37] LABS: CK-MB VALUE MASS 4.5 NG/ML (<3.6); MB/CK RELATIVE INDEX 2.72 (< OR =4)
[2017-10-17] MEDS: CLOPIDOGREL 75 MG TAB PO (08:39)
[2017-10-17] MEDS: FINASTERIDE 5 MG TAB PO (08:39)
[2017-10-17] MEDS: TAMSULOSIN 0.4 MG CAP PO (08:39)
[2017-10-17] MEDS: ASPIRIN 81 MG ENTERIC TAB PO (08:39)
[2017-10-17] MEDS: LIDOCAINE 5% OINT 30 GM TOP (08:40)
[2017-10-17] MEDS: HEPARIN SOD (PORCINE) 5000 UNITS/ML VIAL SC (08:40)
[2017-10-17] MEDS: SYMBICORT 80/4.5MCG INHALER 6GM INH (09:10)
[2017-10-17] MEDS ORDERED: PROHANCE 279.3MG/ML 15ML VIAL (A9576) As Ordered (11:33)
== END 2017-10-17 15:58 | disposition home or self-care (01) | DRG 316 ==
LOC: M ED INP 10-17 00:06 → M ED 21:04
DX: I95.9 Hypotension, unspecified (principal); R27.0 Ataxia, unspecified; T44.6X5A Adverse effect of alpha-adrenoreceptor antagonists, initial encounter; R20.0 Anesthesia of skin; J44.9 Chronic obstructive pulmonary disease, unspecified; H40.9 Unspecified glaucoma; H26.9 Unspecified cataract; K21.9 Gastro-esophageal reflux disease without esophagitis; N40.0 Benign prostatic hyperplasia without lower urinary tract symptoms; Z90.2 Acquired absence of lung [part of]; Z77.090 Contact with and (suspected) exposure to asbestos; Z79.82 Long term (current) use of aspirin; Z79.02 Long term (current) use of antithrombotics/antiplatelets; Z79.899 Other long term (current) drug therapy

== ENCOUNTER 2018-04-10 11:43 | Emergency (ER) | payer MEDICARE ==
[2018-04-10 12:28] LABS: KETONE, URINE AUTO RFX NEGATIVE (NEGATIVE); LEUKOCYTE ESTERASE UR AUTO RFX TRACE (NEGATIVE); MUCUS, URINE RFX SMALL (NEGATIVE); NITRITE, URINE AUTO RFX NEGATIVE (NEGATIVE); RBC, URINE AUTO RFX 159 /HPF (0-3); SPECIFIC GRAVITY UR AUTO RFX 1.015 (1.002-1.035); SQUAM EPITHELIAL CELL UR AURFX 0 /HPF (0-6); WBC, URINE AUTO RFX 8 /HPF (0-3)
[2018-04-10 12:36] LABS: BASO % 0.4 % (0.0-1.0); EOS # 0.1 10^3/uL (0.0-0.50); EOS % 0.6 % (0.0-3.0); IMMATURE GRANULOCYTE % 0.6 % (0-3.0); LYMPH # 0.8 10^3/uL (1.5-4.5); LYMPH % 9.7 % (24.0-44.0); MEAN CORPUSCULAR HEMOGLOBIN 27.9 pg (27.0-33.0); MEAN CORPUSCULAR HGB CONC 32.6 g/dl (32.0-36.5); MEAN CORPUSCULAR VOLUME 85.7 fl (80.0-96.0); MONO # 0.4 10^3/uL (0.0-0.8); MONO % 4.8 % (0.0-5.0); NEUTROPHILS # 7.2 10^3/uL (1.8-7.7); NEUTROPHILS % 83.9 % (36.0-66.0); PLATELET COUNT, AUTOMATED 247 10^3/uL (150-450); RED BLOOD COUNT 5.02 10^6/uL (4.30-6.10); RED CELL DISTRIBUTION WIDTH 13.7 % (11.5-14.5); WHITE BLOOD COUNT 8.6 10^3/uL (4.0-10.0)
[2018-04-10 12:56] LABS: ANION GAP 7 MEQ/L (8-16); BLOOD UREA NITROGEN 16 MG/DL (7-18); CALCIUM LEVEL 8.9 MG/DL (8.8-10.2); CARBON DIOXIDE LEVEL 29 MEQ/L (21-32); CHLORIDE LEVEL 103 MEQ/L (98-107); CREATININE FOR GFR 1.03 MG/DL (0.70-1.30); GLOMERULAR FILTRATION RATE > 60.0 (>35); GLUCOSE, FASTING 99 MG/DL (70-100); POTASSIUM SERUM 4.6 MEQ/L (3.5-5.1); SODIUM LEVEL 139 MEQ/L (136-145)
== END 2018-04-10 14:33 | disposition home or self-care (01) ==
LOC: M ED 11:43
DX: N20.1 Calculus of ureter (principal); N13.0 Hydronephrosis with ureteropelvic junction obstruction; R11.0 Nausea; Z87.442 Personal history of urinary calculi; Z87.440 Personal history of urinary (tract) infections; J44.9 Chronic obstructive pulmonary disease, unspecified; N40.0 Benign prostatic hyperplasia without lower urinary tract symptoms; K57.92 Diverticulitis of intestine, part unspecified, without perforation or abscess without bleeding; H40.9 Unspecified glaucoma; Z86.73 Personal history of transient ischemic attack (TIA), and cerebral infarction without residual deficits; Z90.2 Acquired absence of lung [part of]; Z79.899 Other long term (current) drug therapy; Z79.02 Long term (current) use of antithrombotics/antiplatelets; Z79.51 Long term (current) use of inhaled steroids; Z79.82 Long term (current) use of aspirin
CPT/HCPCS: 76775

== ENCOUNTER 2018-04-25 18:30 | Inpatient (IN) | payer MEDICARE ==
[2018-04-25] MEDS: ACETAMINOPHEN TAB 650MG DOSE (2X325MG) PO (19:56)
[2018-04-25] MEDS: NS 1,000 ML IV ×2 (20:00→21:45)
[2018-04-25 20:05] LABS: BASO % 0.3 % (0.0-1.0); EOS % 0.9 % (0.0-3.0); HEMATOCRIT 42.8 % (42.0-52.0); HEMOGLOBIN 14.2 g/dl (13.5-17.5); IMMATURE GRANULOCYTE % 0.3 % (0-3.0); LYMPH # 0.3 10^3/uL (1.5-4.5); LYMPH % 9.4 % (24.0-44.0); MEAN CORPUSCULAR HEMOGLOBIN 27.6 pg (27.0-33.0); MEAN CORPUSCULAR HGB CONC 33.2 g/dl (32.0-36.5); MEAN CORPUSCULAR VOLUME 83.1 fl (80.0-96.0); MONO % 0.6 % (0.0-5.0); NEUTROPHILS % 88.5 % (36.0-66.0); PLATELET COUNT, AUTOMATED 165 10^3/uL (150-450); RED BLOOD COUNT 5.15 10^6/uL (4.30-6.10); RED CELL DISTRIBUTION WIDTH 13.9 % (11.5-14.5); WHITE BLOOD COUNT 3.4 10^3/uL (4.0-10.0)
[2018-04-25 20:10] LABS: KETONE, URINE AUTO RFX NEGATIVE (NEGATIVE); NITRITE, URINE AUTO RFX NEGATIVE (NEGATIVE); RBC, URINE AUTO RFX 14 /HPF (0-3); SPECIFIC GRAVITY UR AUTO RFX 1.008 (1.002-1.035); SQUAM EPITHELIAL CELL UR AURFX 0 /HPF (0-6); WBC, URINE AUTO RFX 4 /HPF (0-3)
[2018-04-25 20:26] LABS: ANION GAP 9 MEQ/L (8-16); BLOOD UREA NITROGEN 20 MG/DL (7-18); CALCIUM LEVEL 8.4 MG/DL (8.8-10.2); CARBON DIOXIDE LEVEL 25 MEQ/L (21-32); CHLORIDE LEVEL 103 MEQ/L (98-107); CREATININE FOR GFR 1.76 MG/DL (0.70-1.30); GLOMERULAR FILTRATION RATE 39.8 (>35); GLUCOSE, FASTING 98 MG/DL (70-100); POTASSIUM SERUM 4.4 MEQ/L (3.5-5.1); SODIUM LEVEL 137 MEQ/L (136-145)
[2018-04-25] MEDS: cefTRIAXone SOD 2 GM in D5W MINI-BAG PLUS 50 ML IV (20:30)
[2018-04-25 20:48] LABS: LACTIC ACID SEPSIS PROTOCOL 2.6 MMOL/L (0.4-2.0)
[2018-04-25 20:50] LABS: LEUKOCYTE ESTERASE UR AUTO RFX TRACE (NEGATIVE)
[2018-04-25] MEDS: NALOXONE INJ 2 MG/2 ML SYRINGE (J2310) IV (21:11)
[2018-04-25] MEDS ORDERED: PROPOFOL 200 MG/20 ML VIAL As Ordered (21:51)
[2018-04-25] MEDS ORDERED: fentaNYL 100 MCG/2 ML INJECTION (J3010) As Ordered ×2 (21:51→23:01)
[2018-04-25] MEDS ORDERED: MIDAZOLAM INJ 2 MG/2 ML VIAL (J2250) As Ordered ×2 (21:52→23:01)
[2018-04-25] MEDS ORDERED: LIDOCAINE 2% INJ 100 MG/5 ML SDV (FOR ANES.) As Ordered (21:53)
[2018-04-25] MEDS ORDERED: ONDANSETRON 4MG/2ML VIAL (J2405) As Ordered (23:01)
[2018-04-25] MEDS ORDERED: dexameTHASONE 4 MG/ML 1ML VIAL (J1100) As Ordered (23:01)
[2018-04-25] MEDS: LIDOCAINE 2% 5ML JELLY UROJET As Ordered (23:17)
[2018-04-25] MEDS: CONRAY-60 60% 50ML VIAL (Q9961) As Ordered (23:20)
[2018-04-25] MEDS ORDERED: PHENYLephrine HCL 500 MCG/5 ML (100MCG/ML) SYRINGE (J2370) As Ordered (23:21)
[2018-04-26] MEDS: PHENYLEPHRINE HCL INJ 10 MG in D5W 100 ML IV (00:30)
[2018-04-26 01:19] LABS: ABG BASE EXCESS -4.4 (-2.0-2.0); ABG DEVICE NASAL CANN; ABG HCO3 21.1 MEQ/L (22.0-26.0); ABG O2 LITER FLOW 3; ABG O2 SATURATION 99.6 % (95.0-99.0); ABG PARTIAL PRESSURE CO2 40.7 mmHg (35.0-45.0); ABG PARTIAL PRESSURE O2 208.8 mmHg (75.0-100.0); ABG SITE ART LINE; ABG STANDARD HCO3 20.8 MEQ/L (22.0-26.0); ABG TOTAL CO2 22.4 MEQ/L (23.0-31.0); ABG pH (ARTERIAL) 7.333 UNITS (7.350-7.450)
[2018-04-26] MEDS: LR 1,000 ML IV (01:30)
[2018-04-26] MEDS ORDERED: fentaNYL 100 MCG/2 ML INJECTION (J3010) IV (01:30)
[2018-04-26] MEDS ORDERED: ONDANSETRON 4MG/2ML VIAL (J2405) IV (01:30)
[2018-04-26] MEDS ORDERED: PHENYLEPHRINE INJ 10MG/ML VIAL (J2370) As Ordered ×2 (01:50→02:06)
[2018-04-26] MEDS ORDERED: PHENYLephrine HCL 500 MCG/5 ML (100MCG/ML) SYRINGE (J2370) As Ordered (01:51)
[2018-04-26] MEDS: PHENYLEPHRINE HCL INJ 50 MG in D5W 495 ML IV (02:07)
[2018-04-26] MEDS: NS 1,000 ML IV ×3 (02:13→10:17)
[2018-04-26] MEDS: NS 500 ML IV (02:15)
[2018-04-26 05:12] LABS: BASO % 0.2 % (0.0-1.0); HEMATOCRIT 37.6 % (42.0-52.0); IMMATURE GRANULOCYTE % 2.1 % (0-3.0); LYMPH # 0.8 10^3/uL (1.5-4.5); LYMPH % 3.1 % (24.0-44.0); MEAN CORPUSCULAR HEMOGLOBIN 27.7 pg (27.0-33.0); MEAN CORPUSCULAR HGB CONC 31.6 g/dl (32.0-36.5); MEAN CORPUSCULAR VOLUME 87.4 fl (80.0-96.0); MONO # 0.9 10^3/uL (0.0-0.8); MONO % 3.6 % (0.0-5.0); NEUTROPHILS # 22.5 10^3/uL (1.8-7.7); PLATELET COUNT, AUTOMATED 139 10^3/uL (150-450); RED CELL DISTRIBUTION WIDTH 14.6 % (11.5-14.5); WHITE BLOOD COUNT 24.7 10^3/uL (4.0-10.0)
[2018-04-26 05:15] LABS: HEMOGLOBIN 11.9 g/dl (13.5-17.5)
[2018-04-26 05:36] LABS: ALBUMIN 2.3 GM/DL (3.2-5.2); ALBUMIN/GLOBULIN RATIO 0.68 (1.00-1.93); ALKALINE PHOSPHATASE 73 U/L (45-117); ALT/SGPT 37 U/L (12-78); ANION GAP 7 MEQ/L (8-16); AST/SGOT 67 U/L (7-37); BILIRUBIN,TOTAL 0.8 MG/DL (0.2-1.0); BLOOD UREA NITROGEN 21 MG/DL (7-18); CALCIUM LEVEL 6.8 MG/DL (8.8-10.2); CARBON DIOXIDE LEVEL 23 MEQ/L (21-32); CHLORIDE LEVEL 112 MEQ/L (98-107); CREATININE FOR GFR 1.63 MG/DL (0.70-1.30); GLOMERULAR FILTRATION RATE 43.4 (>35); GLUCOSE, FASTING 98 MG/DL (70-100); POTASSIUM SERUM 3.7 MEQ/L (3.5-5.1); SODIUM LEVEL 142 MEQ/L (136-145); TOTAL PROTEIN 5.7 GM/DL (6.4-8.2)
[2018-04-26] MEDS: SYMBICORT 80/4.5MCG INHALER 6GM INH ×2 (09:00→20:24)
[2018-04-26] MEDS: FLUTICASONE PROP 0.05% NASAL SPRAY 16 GM (FLONASE) ×2 (12:48→21:22)
[2018-04-26] MEDS: CLOPIDOGREL 75 MG TAB PO (12:49)
[2018-04-26] MEDS: HEPARIN SOD (PORCINE) 5000 UNITS/ML VIAL SQ ×2 (12:49→21:22)
[2018-04-26] MEDS: FINASTERIDE 5 MG TAB PO ×2 (12:50→12:51)
[2018-04-26] MEDS: GABAPENTIN 100 MG CAP PO ×3 (12:50→21:22)
[2018-04-26] MEDS: ASPIRIN 81 MG ENTERIC TAB PO (12:50)
[2018-04-26] MEDS: TAMSULOSIN 0.4 MG CAP PO (13:01)
[2018-04-26] MEDS ORDERED: SLF 3 ML SYR IV (13:45)
[2018-04-26] MEDS: SLF 3 ML SYR IV ×2 (14:00→21:24)
[2018-04-26] MEDS: IPRATROPIUM 0.5MG/ALBUTEROL 2.5MG INH SOL UD 3ML (DUONEB)(J7620) NEB ×2 (15:38→20:24)
[2018-04-26] MEDS ORDERED: cefTRIAXone SOD 1 GM in D5W MINI-BAG PLUS 50 ML IV (21:00)
[2018-04-26] MEDS ORDERED: ENTER DRUG NAME HERE (PATIENT'S OWN MED) OU (21:00)
[2018-04-26] MEDS ORDERED: cefTRIAXone SOD 2 GM in D5W MINI-BAG PLUS 50 ML IV (21:00)
[2018-04-26] MEDS: LATANOPROST 0.005% OPHTH SOLN 2.5 ML OU (21:22)
[2018-04-26] MEDS: OMEPRAZOLE 20 MG CAP PO (21:22)
[2018-04-26] MEDS: cefTRIAXone SOD 2 GM in D5W MINI-BAG PLUS 50 ML IV (21:24)
[2018-04-27] MEDS: SLF 3 ML SYR IV ×3 (05:12→21:20)
[2018-04-27 05:36] LABS: HEMATOCRIT 36.7 % (42.0-52.0); HEMOGLOBIN 11.8 g/dl (13.5-17.5); MEAN CORPUSCULAR HGB CONC 32.2 g/dl (32.0-36.5); PLATELET COUNT, AUTOMATED 118 10^3/uL (150-450); RED BLOOD COUNT 4.22 10^6/uL (4.30-6.10); RED CELL DISTRIBUTION WIDTH 14.8 % (11.5-14.5); WHITE BLOOD COUNT 25.8 10^3/uL (4.0-10.0)
[2018-04-27 06:09] LABS: ANION GAP 7 MEQ/L (8-16); BLOOD UREA NITROGEN 22 MG/DL (7-18); CALCIUM LEVEL 7.2 MG/DL (8.8-10.2); CARBON DIOXIDE LEVEL 24 MEQ/L (21-32); CHLORIDE LEVEL 108 MEQ/L (98-107); FERRITIN 68 NG/ML (26-388); GLOMERULAR FILTRATION RATE > 60.0 (>35); GLUCOSE, FASTING 74 MG/DL (70-100); IRON (FE) 13 UG/DL (65-175); PERCENT SATURATION 4.4 % (19.7-50.0); POTASSIUM SERUM 3.2 MEQ/L (3.5-5.1); SODIUM LEVEL 139 MEQ/L (136-145); TOTAL IRON BINDING CAPACITY 297 UG/DL (250-450)
[2018-04-27] MEDS: SYMBICORT 80/4.5MCG INHALER 6GM INH ×2 (07:55→20:43)
[2018-04-27] MEDS: IPRATROPIUM 0.5MG/ALBUTEROL 2.5MG INH SOL UD 3ML (DUONEB)(J7620) NEB ×2 (07:55→20:43)
[2018-04-27] MEDS: ASPIRIN 81 MG ENTERIC TAB PO (09:16)
[2018-04-27] MEDS: CLOPIDOGREL 75 MG TAB PO (09:16)
[2018-04-27] MEDS: TAMSULOSIN 0.4 MG CAP PO (09:16)
[2018-04-27] MEDS: HEPARIN SOD (PORCINE) 5000 UNITS/ML VIAL SQ ×2 (09:16→20:07)
[2018-04-27] MEDS: GABAPENTIN 100 MG CAP PO ×2 (09:16→20:07)
[2018-04-27] MEDS: FINASTERIDE 5 MG TAB PO (09:16)
[2018-04-27] MEDS: FLUTICASONE PROP 0.05% NASAL SPRAY 16 GM (FLONASE) ×2 (09:17→20:07)
[2018-04-27] MEDS: POTASSIUM CHLORIDE 10 MEQ SR TABLET PO (10:19)
[2018-04-27 14:15] LABS: MAGNESIUM LEVEL 1.5 MG/DL (1.8-2.4)
[2018-04-27] MEDS: MAG SULF 1GM/100ML (MAG RUN) 1 GM in APPROPRIATE DILUENT 1 EA IV (15:31)
[2018-04-27] MEDS: cefTRIAXone SOD 2 GM in D5W MINI-BAG PLUS 50 ML IV (20:07)
[2018-04-27] MEDS: OMEPRAZOLE 20 MG CAP PO (20:07)
[2018-04-27] MEDS: LATANOPROST 0.005% OPHTH SOLN 2.5 ML OU (20:07)
[2018-04-28 05:01] LABS: HEMATOCRIT 33.6 % (42.0-52.0); HEMOGLOBIN 10.9 g/dl (13.5-17.5); MEAN CORPUSCULAR HEMOGLOBIN 28.2 pg (27.0-33.0); MEAN CORPUSCULAR HGB CONC 32.4 g/dl (32.0-36.5); MEAN CORPUSCULAR VOLUME 86.8 fl (80.0-96.0); PLATELET COUNT, AUTOMATED 118 10^3/uL (150-450); RED BLOOD COUNT 3.87 10^6/uL (4.30-6.10); RED CELL DISTRIBUTION WIDTH 14.7 % (11.5-14.5)
[2018-04-28 05:20] LABS: ANION GAP 4 MEQ/L (8-16); BLOOD UREA NITROGEN 18 MG/DL (7-18); CALCIUM LEVEL 7.6 MG/DL (8.8-10.2); CARBON DIOXIDE LEVEL 26 MEQ/L (21-32); CHLORIDE LEVEL 110 MEQ/L (98-107); CREATININE FOR GFR 1.17 MG/DL (0.70-1.30); GLOMERULAR FILTRATION RATE > 60.0 (>35); GLUCOSE, FASTING 113 MG/DL (70-100); MAGNESIUM LEVEL 1.9 MG/DL (1.8-2.4); POTASSIUM SERUM 3.3 MEQ/L (3.5-5.1); SODIUM LEVEL 140 MEQ/L (136-145)
[2018-04-28] MEDS: SLF 3 ML SYR IV ×3 (05:42→20:33)
[2018-04-28] MEDS: IPRATROPIUM 0.5MG/ALBUTEROL 2.5MG INH SOL UD 3ML (DUONEB)(J7620) NEB ×2 (07:45→20:38)
[2018-04-28] MEDS: SYMBICORT 80/4.5MCG INHALER 6GM INH ×2 (07:46→20:38)
[2018-04-28] MEDS: HEPARIN SOD (PORCINE) 5000 UNITS/ML VIAL SQ ×2 (08:18→20:30)
[2018-04-28] MEDS: GABAPENTIN 100 MG CAP PO ×2 (08:18→20:29)
[2018-04-28] MEDS: FLUTICASONE PROP 0.05% NASAL SPRAY 16 GM (FLONASE) ×2 (08:19→20:32)
[2018-04-28] MEDS: POTASSIUM CHLORIDE 10 MEQ SR TABLET PO (08:19)
[2018-04-28] MEDS: CLOPIDOGREL 75 MG TAB PO (08:19)
[2018-04-28] MEDS: FINASTERIDE 5 MG TAB PO (08:19)
[2018-04-28] MEDS: TAMSULOSIN 0.4 MG CAP PO (08:19)
[2018-04-28] MEDS: ASPIRIN 81 MG ENTERIC TAB PO (08:22)
[2018-04-28 08:36] LABS: TRANSFERRIN 193 mg/dL (200-370)
[2018-04-28] MEDS: PIPERACILLIN/TAZOBACTAM SOD 3.375 GM in D5W MINI-BAG PLUS 50 ML IV ×2 (09:57→17:54)
[2018-04-28] MEDS: MAGIC MOUTHWASH SUSPENSION BTL SSP (09:57)
[2018-04-28 11:19] LABS: BEDSIDE GLUCOSE 104 MG/DL (83-110)
[2018-04-28] MEDS: CHLORHEXIDINE ORAL RINSE 0.12%/15ML 120ML BOTTLE MT ×2 (12:04→20:31)
[2018-04-28] MEDS: OMEPRAZOLE 20 MG CAP PO (20:29)
[2018-04-28] MEDS: LATANOPROST 0.005% OPHTH SOLN 2.5 ML OU (20:31)
[2018-04-28] MEDS: valACYclovir HCL 500 MG TAB PO (20:31)
[2018-04-29] MEDS: PIPERACILLIN/TAZOBACTAM SOD 3.375 GM in D5W MINI-BAG PLUS 50 ML IV ×3 (02:19→17:17)
[2018-04-29] MEDS: SLF 3 ML SYR IV ×3 (05:10→21:38)
[2018-04-29 06:01] LABS: HEMATOCRIT 34.3 % (42.0-52.0); HEMOGLOBIN 11.2 g/dl (13.5-17.5); MEAN CORPUSCULAR HEMOGLOBIN 28.1 pg (27.0-33.0); MEAN CORPUSCULAR HGB CONC 32.7 g/dl (32.0-36.5); PLATELET COUNT, AUTOMATED 140 10^3/uL (150-450); RED BLOOD COUNT 3.99 10^6/uL (4.30-6.10); RED CELL DISTRIBUTION WIDTH 14.7 % (11.5-14.5); WHITE BLOOD COUNT 14.6 10^3/uL (4.0-10.0)
[2018-04-29 06:24] LABS: ANION GAP 4 MEQ/L (8-16); BLOOD UREA NITROGEN 10 MG/DL (7-18); C REACTIVE PROTEIN QUANTITATIV 7.67 MG/DL (0.00-0.30); CALCIUM LEVEL 8.2 MG/DL (8.8-10.2); CARBON DIOXIDE LEVEL 27 MEQ/L (21-32); CHLORIDE LEVEL 112 MEQ/L (98-107); CREATININE FOR GFR 0.99 MG/DL (0.70-1.30); GLOMERULAR FILTRATION RATE > 60.0 (>35); GLUCOSE, FASTING 97 MG/DL (70-100); MAGNESIUM LEVEL 1.9 MG/DL (1.8-2.4); POTASSIUM SERUM 3.7 MEQ/L (3.5-5.1); SODIUM LEVEL 143 MEQ/L (136-145)
[2018-04-29] MEDS: SYMBICORT 80/4.5MCG INHALER 6GM INH ×2 (08:51→21:34)
[2018-04-29] MEDS: IPRATROPIUM 0.5MG/ALBUTEROL 2.5MG INH SOL UD 3ML (DUONEB)(J7620) NEB ×2 (08:51→21:34)
[2018-04-29] MEDS: GABAPENTIN 100 MG CAP PO ×2 (09:11→21:37)
[2018-04-29] MEDS: FINASTERIDE 5 MG TAB PO (09:11)
[2018-04-29] MEDS: valACYclovir HCL 500 MG TAB PO ×2 (09:11→21:38)
[2018-04-29] MEDS: CLOPIDOGREL 75 MG TAB PO (09:11)
[2018-04-29] MEDS: TAMSULOSIN 0.4 MG CAP PO (09:11)
[2018-04-29] MEDS: ASPIRIN 81 MG ENTERIC TAB PO (09:11)
[2018-04-29] MEDS: CHLORHEXIDINE ORAL RINSE 0.12%/15ML 120ML BOTTLE MT ×2 (09:12→21:37)
[2018-04-29] MEDS: FLUTICASONE PROP 0.05% NASAL SPRAY 16 GM (FLONASE) ×2 (09:12→21:39)
[2018-04-29] MEDS: HEPARIN SOD (PORCINE) 5000 UNITS/ML VIAL SQ ×2 (09:12→21:38)
[2018-04-29 20:23] LABS: CK-MB VALUE MASS < 1.0 NG/ML (<3.6); CPK CREATINE PHOSPHOKINASE 36 U/L (39-308); MB/CK RELATIVE INDEX 2.78 (< OR =4)
[2018-04-29] MEDS: OMEPRAZOLE 20 MG CAP PO (21:38)
[2018-04-29] MEDS: LATANOPROST 0.005% OPHTH SOLN 2.5 ML OU (21:38)
[2018-04-30] MEDS: PIPERACILLIN/TAZOBACTAM SOD 3.375 GM in D5W MINI-BAG PLUS 50 ML IV ×2 (02:36→10:21)
[2018-04-30 04:18] LABS: HEMATOCRIT 35.8 % (42.0-52.0); HEMOGLOBIN 11.5 g/dl (13.5-17.5); MEAN CORPUSCULAR HEMOGLOBIN 27.7 pg (27.0-33.0); MEAN CORPUSCULAR HGB CONC 32.1 g/dl (32.0-36.5); MEAN CORPUSCULAR VOLUME 86.3 fl (80.0-96.0); PLATELET COUNT, AUTOMATED 165 10^3/uL (150-450); RED BLOOD COUNT 4.15 10^6/uL (4.30-6.10); RED CELL DISTRIBUTION WIDTH 14.8 % (11.5-14.5); WHITE BLOOD COUNT 8.2 10^3/uL (4.0-10.0)
[2018-04-30 04:42] LABS: ANION GAP 7 MEQ/L (8-16); BLOOD UREA NITROGEN 12 MG/DL (7-18); C REACTIVE PROTEIN QUANTITATIV 4.21 MG/DL (0.00-0.30); CALCIUM LEVEL 8.4 MG/DL (8.8-10.2); CARBON DIOXIDE LEVEL 27 MEQ/L (21-32); CHLORIDE LEVEL 110 MEQ/L (98-107); CREATININE FOR GFR 0.97 MG/DL (0.70-1.30); GLOMERULAR FILTRATION RATE > 60.0 (>35); GLUCOSE, FASTING 104 MG/DL (70-100); MAGNESIUM LEVEL 1.7 MG/DL (1.8-2.4); POTASSIUM SERUM 3.8 MEQ/L (3.5-5.1); SODIUM LEVEL 144 MEQ/L (136-145)
[2018-04-30 05:12] LABS: CK-MB VALUE MASS < 1.0 NG/ML (<3.6); CPK CREATINE PHOSPHOKINASE 30 U/L (39-308); MB/CK RELATIVE INDEX 3.33 (< OR =4)
[2018-04-30] MEDS: SLF 3 ML SYR IV ×3 (05:47→21:36)
[2018-04-30] MEDS: IPRATROPIUM 0.5MG/ALBUTEROL 2.5MG INH SOL UD 3ML (DUONEB)(J7620) NEB ×2 (08:24→21:09)
[2018-04-30] MEDS: SYMBICORT 80/4.5MCG INHALER 6GM INH ×2 (08:24→21:09)
[2018-04-30] MEDS: CHLORHEXIDINE ORAL RINSE 0.12%/15ML 120ML BOTTLE MT ×2 (09:00→21:34)
[2018-04-30] MEDS: HEPARIN SOD (PORCINE) 5000 UNITS/ML VIAL SQ ×2 (10:18→21:35)
[2018-04-30] MEDS: CLOPIDOGREL 75 MG TAB PO (10:18)
[2018-04-30] MEDS: TAMSULOSIN 0.4 MG CAP PO (10:19)
[2018-04-30] MEDS: valACYclovir HCL 500 MG TAB PO ×2 (10:19→21:34)
[2018-04-30] MEDS: FINASTERIDE 5 MG TAB PO (10:19)
[2018-04-30] MEDS: ASPIRIN 81 MG ENTERIC TAB PO (10:19)
[2018-04-30] MEDS: GABAPENTIN 100 MG CAP PO ×2 (10:19→21:34)
[2018-04-30] MEDS: FLUTICASONE PROP 0.05% NASAL SPRAY 16 GM (FLONASE) ×2 (10:21→21:36)
[2018-04-30] MEDS: FUROSEMIDE 20 MG/2 ML VIAL (J1940) IV (10:26)
[2018-04-30] MEDS: FOSFOMYCIN TROMETHAMINE 3 GM POWDER PACKET (MONUROL) PO (16:56)
[2018-04-30] MEDS: CEFDINIR 300 MG CAP (OMNICEF) PO (21:34)
[2018-04-30] MEDS: OMEPRAZOLE 20 MG CAP PO (21:34)
[2018-04-30] MEDS: LATANOPROST 0.005% OPHTH SOLN 2.5 ML OU (21:36)
[2018-04-30] MEDS: CEPACOL LOZENGE PO (23:15)
[2018-05-01] MEDS: SLF 3 ML SYR IV ×3 (05:00→20:38)
[2018-05-01] MEDS: SYMBICORT 80/4.5MCG INHALER 6GM INH ×2 (06:21→21:11)
[2018-05-01] MEDS: IPRATROPIUM 0.5MG/ALBUTEROL 2.5MG INH SOL UD 3ML (DUONEB)(J7620) NEB ×2 (06:21→21:08)
[2018-05-01 06:32] LABS: HEMATOCRIT 35.4 % (42.0-52.0); HEMOGLOBIN 11.5 g/dl (13.5-17.5); MEAN CORPUSCULAR HEMOGLOBIN 27.7 pg (27.0-33.0); MEAN CORPUSCULAR HGB CONC 32.5 g/dl (32.0-36.5); MEAN CORPUSCULAR VOLUME 85.3 fl (80.0-96.0); PLATELET COUNT, AUTOMATED 207 10^3/uL (150-450); RED BLOOD COUNT 4.15 10^6/uL (4.30-6.10); RED CELL DISTRIBUTION WIDTH 14.6 % (11.5-14.5)
[2018-05-01 07:10] LABS: ANION GAP 7 MEQ/L (8-16); BLOOD UREA NITROGEN 13 MG/DL (7-18); CARBON DIOXIDE LEVEL 28 MEQ/L (21-32); CHLORIDE LEVEL 105 MEQ/L (98-107); CREATININE FOR GFR 1.01 MG/DL (0.70-1.30); GLOMERULAR FILTRATION RATE > 60.0 (>35); GLUCOSE, FASTING 91 MG/DL (70-100); MAGNESIUM LEVEL 1.7 MG/DL (1.8-2.4); POTASSIUM SERUM 3.4 MEQ/L (3.5-5.1); SODIUM LEVEL 140 MEQ/L (136-145)
[2018-05-01 08:09] LABS: C REACTIVE PROTEIN QUANTITATIV 3.88 MG/DL (0.00-0.30)
[2018-05-01] MEDS: POTASSIUM CHLORIDE 10 MEQ SR TABLET PO (08:57)
[2018-05-01] MEDS: MAG SULF 1GM/100ML (MAG RUN) 1 GM in APPROPRIATE DILUENT 1 EA IV (08:57)
[2018-05-01] MEDS: CHLORHEXIDINE ORAL RINSE 0.12%/15ML 120ML BOTTLE MT ×2 (08:58→20:35)
[2018-05-01] MEDS: CLOPIDOGREL 75 MG TAB PO (08:59)
[2018-05-01] MEDS: CEFDINIR 300 MG CAP (OMNICEF) PO ×2 (08:59→20:36)
[2018-05-01] MEDS: ASPIRIN 81 MG ENTERIC TAB PO (08:59)
[2018-05-01] MEDS: TAMSULOSIN 0.4 MG CAP PO (08:59)
[2018-05-01] MEDS: GABAPENTIN 100 MG CAP PO ×2 (08:59→20:36)
[2018-05-01] MEDS: FLUTICASONE PROP 0.05% NASAL SPRAY 16 GM (FLONASE) ×2 (09:00→20:37)
[2018-05-01] MEDS: FINASTERIDE 5 MG TAB PO (09:00)
[2018-05-01] MEDS: valACYclovir HCL 500 MG TAB PO ×2 (09:00→20:36)
[2018-05-01] MEDS: HEPARIN SOD (PORCINE) 5000 UNITS/ML VIAL SQ ×2 (09:00→20:36)
[2018-05-01] MEDS: OMEPRAZOLE 20 MG CAP PO (20:36)
[2018-05-01] MEDS: CEPACOL LOZENGE PO (20:38)
[2018-05-01] MEDS: LATANOPROST 0.005% OPHTH SOLN 2.5 ML OU (20:38)
[2018-05-02] MEDS: SLF 3 ML SYR IV ×2 (05:02→13:00)
[2018-05-02 06:04] LABS: HEMATOCRIT 36.5 % (42.0-52.0); HEMOGLOBIN 11.7 g/dl (13.5-17.5); MEAN CORPUSCULAR HEMOGLOBIN 27.7 pg (27.0-33.0); MEAN CORPUSCULAR HGB CONC 32.1 g/dl (32.0-36.5); MEAN CORPUSCULAR VOLUME 86.3 fl (80.0-96.0); PLATELET COUNT, AUTOMATED 223 10^3/uL (150-450); RED BLOOD COUNT 4.23 10^6/uL (4.30-6.10); RED CELL DISTRIBUTION WIDTH 14.8 % (11.5-14.5); WHITE BLOOD COUNT 10.9 10^3/uL (4.0-10.0)
[2018-05-02 06:25] LABS: ANION GAP 5 MEQ/L (8-16); BLOOD UREA NITROGEN 12 MG/DL (7-18); CALCIUM LEVEL 8.2 MG/DL (8.8-10.2); CARBON DIOXIDE LEVEL 28 MEQ/L (21-32); CHLORIDE LEVEL 107 MEQ/L (98-107); CREATININE FOR GFR 0.94 MG/DL (0.70-1.30); GLOMERULAR FILTRATION RATE > 60.0 (>35); GLUCOSE, FASTING 94 MG/DL (70-100); POTASSIUM SERUM 3.9 MEQ/L (3.5-5.1); SODIUM LEVEL 140 MEQ/L (136-145)
[2018-05-02] MEDS: TAMSULOSIN 0.4 MG CAP PO (08:20)
[2018-05-02] MEDS: FINASTERIDE 5 MG TAB PO (08:20)
[2018-05-02] MEDS: valACYclovir HCL 500 MG TAB PO (08:20)
[2018-05-02] MEDS: CLOPIDOGREL 75 MG TAB PO (08:20)
[2018-05-02] MEDS: CEFDINIR 300 MG CAP (OMNICEF) PO (08:20)
[2018-05-02] MEDS: FLUTICASONE PROP 0.05% NASAL SPRAY 16 GM (FLONASE) (08:21)
[2018-05-02] MEDS: CHLORHEXIDINE ORAL RINSE 0.12%/15ML 120ML BOTTLE MT (08:21)
[2018-05-02] MEDS: GABAPENTIN 100 MG CAP PO (08:21)
[2018-05-02] MEDS: ASPIRIN 81 MG ENTERIC TAB PO (08:21)
[2018-05-02] MEDS: HEPARIN SOD (PORCINE) 5000 UNITS/ML VIAL SQ (08:21)
[2018-05-02] MEDS: IPRATROPIUM 0.5MG/ALBUTEROL 2.5MG INH SOL UD 3ML (DUONEB)(J7620) NEB (09:02)
[2018-05-02] MEDS: SYMBICORT 80/4.5MCG INHALER 6GM INH (09:02)
[2018-05-02] MEDS: FOSFOMYCIN TROMETHAMINE 3 GM POWDER PACKET (MONUROL) PO (13:00)
== END 2018-05-02 14:49 | disposition home or self-care (01) | DRG 853 ==
LOC: M ICU 04-26 01:36 → M MSPAV 04-28 22:46 → M ED 18:30 → M ED INP 22:35
PROVIDERS: Urology
PROC: 0TC78ZZ Extirpation of Matter from Left Ureter, Via Natural or Artificial Opening Endoscopic (ICD-10-PCS; principal; 2018-04-25 22:30)
PROC: 0T778DZ Dilation of Left Ureter with Intraluminal Device, Via Natural or Artificial Opening Endoscopic (ICD-10-PCS; 2018-04-25 22:30)
DX: A41.51 Sepsis due to Escherichia coli [E. coli] (principal); R65.21 Severe sepsis with septic shock; N13.6 Pyonephrosis; N17.9 Acute kidney failure, unspecified; E87.2 Acidosis; B00.2 Herpesviral gingivostomatitis and pharyngotonsillitis; N40.0 Benign prostatic hyperplasia without lower urinary tract symptoms; E86.0 Dehydration; D63.8 Anemia in other chronic diseases classified elsewhere; J45.909 Unspecified asthma, uncomplicated; E87.6 Hypokalemia; H40.9 Unspecified glaucoma; H26.9 Unspecified cataract; B96.20 Unspecified Escherichia coli [E. coli] as the cause of diseases classified elsewhere; Z86.73 Personal history of transient ischemic attack (TIA), and cerebral infarction without residual deficits; Z79.82 Long term (current) use of aspirin; Z79.02 Long term (current) use of antithrombotics/antiplatelets; Z79.899 Other long term (current) drug therapy; Z90.2 Acquired absence of lung [part of]; Z77.090 Contact with and (suspected) exposure to asbestos

== ENCOUNTER → 2018-05-10 | Outpatient (CLI) | payer MEDICARE | LOC: M RAD 15:56 | DX: R05 Cough (principal) | CPT/HCPCS: 71046 ==

== ENCOUNTER 2018-09-21 13:15 | Observation (INO) | payer MEDICARE ==
[~2018-09-21] VITALS: Ht 172.7 cm; Wt 71.6 kg
[~2018-09-21 13:15] MED LIST changes: +ATOR1TAB21 PO; +CEFD300CAP PO; +FINA5TAB2 PO; +FLOM0.4C39 PO; -FLOM5CAP PO; +FOSFOMYCIN PO; +Fosfomycin Tromethamine PO; +GABA-1171 PO; -GABA-279 PO; +HYDR-3713 PO; +IPRA0.00 INH; +KEFL500C17 PO; +NORCOTAB PO; +VALA500T5 PO; +[UNRECOGNIZED DRUG - REMARK] TOP
--- NOTE | 2018-09-21 14:14 | REP ---
CHEST, PORTABLE: AP portable view of the chest is performed and compared to a prior study of 05/10/2018. There is again total opacification of the left hemithorax unchanged. Right lung is mildly hyperinflated with no acute infiltrate. Mild fibroatelectatic changes seen in the right lung base. Heart size cannot be evaluated. Metallic clips again overlie the left hemithorax. IMPRESSION: Stable exam. Complete opacification of left hemithorax. No acute infiltrate in the right lung. Electronically Signed by Carlos Wells MD 09/21/2018 11:26 P
--- NOTE | 2018-09-21 14:28 | REP ---
CT BRAIN WITHOUT CONTRAST: HISTORY: CVA. COMPARISON CT STUDY: October 16, 2017. CT FINDINGS: Digital preliminary train reservation clerk radiograph is unremarkable. The patient is edentulous. Bone window settings demonstrate an intact bony calvarium. There is mucosal thickening in the ethmoid air cells bilaterally and in the sphenoid and frontal sinuses. No intraorbital abnormality is seen. On soft tissue window settings, the lateral, third, and fourth ventricles are normal in size and position. There is diffuse cerebral atrophy as before. There is no evidence of intracranial hemorrhage. No extra-axial fluid collection is seen. There are small vessel changes in the periventricular white matter. No infarct, mass, midline shift is seen. IMPRESSION: Diffuse atrophy. Mild vascular calcification. Paranasal sinus mucosal changes. No acute intracranial abnormality. Electronically Signed by Garo Alvarez MD 09/21/2018 05:06 P
[2018-09-21 14:54] LABS: BASO % 0.6 % (0.0-1.0); EOS # 0.2 10^3/uL (0.0-0.50); EOS % 3.8 % (0.0-3.0); HEMATOCRIT 42.9 % (42.0-52.0); HEMOGLOBIN 13.9 g/dl (13.5-17.5); LYMPH # 1.3 10^3/uL (1.5-4.5); MEAN CORPUSCULAR HGB CONC 32.4 g/dl (32.0-36.5); MEAN CORPUSCULAR VOLUME 86.3 fl (80.0-96.0); MONO # 0.5 10^3/uL (0.0-0.8); MONO % 7.3 % (0.0-5.0); NEUTROPHILS # 4.2 10^3/uL (1.8-7.7); PLATELET COUNT, AUTOMATED 227 10^3/uL (150-450); RED BLOOD COUNT 4.97 10^6/uL (4.30-6.10); WHITE BLOOD COUNT 6.3 10^3/uL (4.0-10.0)
[2018-09-21 15:08] LABS: BLOOD UREA NITROGEN 21 MG/DL (7-18); CALCIUM LEVEL 8.3 MG/DL (8.8-10.2); CARBON DIOXIDE LEVEL 28 MEQ/L (21-32); CHLORIDE LEVEL 106 MEQ/L (98-107); CPK CREATINE PHOSPHOKINASE 155 U/L (39-308); CREATININE FOR GFR 1.01 MG/DL (0.70-1.30); GLOMERULAR FILTRATION RATE > 60.0 (>35); GLUCOSE, FASTING 81 MG/DL (70-100); MB/CK RELATIVE INDEX 3.48 (< OR =4); POTASSIUM SERUM 4.2 MEQ/L (3.5-5.1); SODIUM LEVEL 140 MEQ/L (136-145); TROPONIN I < 0.02 NG/ML (< 0.10)
[2018-09-21 15:10] LABS: INR 0.92; PROTHROMBIN TIME 12.5 SECONDS (12.1-14.4)
[2018-09-21] MEDS ORDERED: DICY1CAP8 PO (15:48)
--- NOTE | 2018-09-21 17:54 | REP ---
MRI BRAIN WITHOUT CONTRAST: TECHNIQUE: Multiple sequences obtained in the axial and sagittal planes. There is moderate atrophy. There is no midline shift. There is no mass effect. Patchy small vessel ischemic changes and gliosis are seen in the periventricular white matter bilaterally. There is no acute infarct. There is no evidence of acute intracranial hemorrhage or extra-axial fluid collection. VII/VIII cranial nerve complexes are unremarkable. Brain stem and cerebellum are unremarkable. There is scattered mucosal thickening in the paranasal sinuses. IMPRESSION: Atrophy and small vessel ischemic changes. No acute infarct. Electronically Signed by Carlos Wells MD 09/21/2018 11:54 P
--- NOTE | 2018-09-21 17:56 | REP ---
MRA BRAIN: MRA brain is performed utilizing 3D TOF imaging with 3D MIP reconstruction images. The study is somewhat limited due to patient motion. Comparison made with prior study of 10/17/2017. Once again, there is some atherosclerotic narrowing of the carotid siphons bilaterally. The anterior, middle and posterior cerebral arteries are widely patent. Anterior communicating arteries are widely patent. Vertebral basilar system is widely patent with a dominant left vertebral artery. There is a hypoplastic T1 segment on the left. There is no aneurysm or AVM. IMPRESSION: No significant intracranial arterial stenosis or occlusion. No aneurysm or AVM. Electronically Signed by Carlos Wells MD 09/21/2018 11:55 P
[2018-09-21] MEDS ORDERED: ACETAMINOPHEN TAB 650MG DOSE (2X325MG) PO PRN (18:15)
--- NOTE | 2018-09-21 19:12 | HPE ---
DATE OF ADMISSION: 09/21/2018 ATTENDING PHYSICIAN: Sophia Lucas MD HISTORY OF PRESENT ILLNESS: The patient is an 83-year-old male who presents today after a three hour history of left-sided facial numbness and left hand numbness. Patient says he has a previous history of transient ischemic attacks but has never been diagnosed with a stroke. Patient says that he has been dealing with some stress lately because of his daughters and her situation with her bipolar depression. Patient said that this morning about an hour before coming into the hospital he started noticing some left facial numbness. He did not have any problem speaking or having word finding. He did not have any weakness in his face or anywhere else in his body. He did not have any headache, nor did he have any dizziness or lose consciousness during this time. He said about an hour after he had gotten to the hospital, the symptoms resolved. Patient says this is similar to the previous transient ischemic attack (TIA) that he has had in the past. Other than that, the patient does not have any complaints and at this time he does not complain of any numbness or weakness. PAST MEDICAL HISTORY: 1. Benign prostatic hypertrophy (BPH). 2. Asbestosis. 3. TIAs. 4. 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 5. History of diverticulosis. PAST SURGICAL HISTORY: 1. Two colonoscopies. 2. Surgery to remove the mass in the left upper lobe. FAMILY HISTORY: Patient has a history of diabetes in sister, aunt and son. His father of COPD and asthma. SOCIAL HISTORY: Patient denies every having any tobacco use. He drinks very occasional alcohol and denies any illicit drugs. 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 MEDICATIONS: - DuoNebs twice a day - aspirin 81 mg daily - Symbicort 2 puffs twice a day - Plavix 75 mg daily - finasteride 5 mg daily - Flonase 1 spray twice a day - gabapentin 100 mg daily - omeprazole 20 mg at night - tamsulosin 0.4 mg daily - Lumigan 1 drop in both eyes at night - dicyclomine 10 mg daily REVIEW OF SYSTEMS: GENERAL: Patient denies fever, chills, weight loss. HEENT: Patient denies headache, change in vision, changes in hearing. CARDIOVASCULAR: Patient denies chest pain, palpitations. RESPIRATORY: Patient denies shortness of breath or cough. GASTROINTESTINAL (GI): Patient denies abdominal pain, nausea, vomiting, diarrhea or constipation. GENITOURINARY (): Patient denies any pain or difficulty with urination. NEUROLOGICAL: Patient denies any numbness or weakness at this time. SKIN: Patient denies any rashes. Patient does have easy bruising, which he attributes to Plavix. LYMPHATICS: Patient denies any new lumps or bumps in his neck, axilla or groin. EXTREMITIES: Patient denies any swelling in his extremities. Patient does say he has varicose veins on the right side, worse than the left. PHYSICAL EXAMINATION: VITALS: Temperature 97.6, pulse is 79, respirations 16, blood pressure 150/71, pulse oximetry 97% on room air. GENERAL: Patient is an alert and oriented male patient who is laying in the ER stretcher when I walked into the room. Patient in no acute distress. HEENT: Normocephalic, atraumatic, with anicteric sclera. Patient had moist mucous membranes. Posterior pharynx was not erythematous. NECK: Supple. No lymphadenopathy. No bruits auscultated. CARDIOVASCULAR: Regular rate and rhythm with no murmurs, rubs or gallops. RESPIRATORY: Clear to auscultation bilaterally. ABDOMEN: Soft, nontender to palpation with normoactive bowel sounds and no bruits auscultated. EXTREMITIES: With varicose veins present on the right lower extremity. There was no pretibial edema. Radial posterior tibial and dorsalis pedis pulses were 2 out of 4 bilaterally. NEUROLOGICAL: Cranial nerves II through XII intact bilaterally. Myotomes in the upper and lower extremities were 5/5 bilaterally. Patient's sensation was intact to gross touch in upper and lower extremities dermatomes. Rapid alternating movements, finger to nose and heel to laird tests were all negative. SKIN: Patient did not have any rashes on his head, neck, abdomen, back, arms or legs that was examined. LABORATORY: CBC shows a white blood cell count of 6.3, hemoglobin 13.9, hematocrit 42.9, platelet count 227. BMP: Sodium 140, potassium 4.2, chloride 106, bicarbonate 28, BUN 21, creatinine is 1.01. Glucose 81. Calcium 8.3, total creatinine kinase 155. CK-MB was 5.0. Troponin was less than 0.02. Physical therapy (PT) was 12.5 with an INR of 0.92. IMAGING: Head CT performed showed diffuse atrophy with mild vascular calcification and no acute intracranial abnormality. A chest x-ray showed stable examination. Complete opacification of the left hemithorax. No acute infiltrate in the right lung. Preliminary read of the MRA of the brain shows no significant intracranial arterial stenosis or occlusion. Preliminary read of the brain MRI shows atrophy and small vessel changes, but no acute infarct. ASSESSMENT AND PLAN: Patient is an 83-year-old male who presents with a three hour history of left facial numbness as well as left third and fourth digit numbness which is possibly secondary to a TIA. 1. TIA. Patient will be admitted overnight for observation. For his TIA, the preliminary read for the MRI and MRA do not show any abnormalities. We have also ordered a carotid ultrasound and an echocardiogram and will place the patient on telemetry. We have contacted Dr. Hicks of neurology who has agreed to see the patient. We have also ordered and A1c and lipid panel for the morning to be done with his morning labs. We will continue the patient's home medication of aspirin and Plavix that he was put on for his previous TIAs. 2. Asbestos exposure. We will continue the patient's home medications of DuoNebs, Symbicort, and Flonase. 3. Benign prostatic hypertrophy (BPH). We will continue the patient's finasteride and tamsulosin. 4. GERD. We will continue the patient's omeprazole. 5. DVT prophylaxis. We will start the patient on heparin 5000 units subcutaneous injection every 8 hours. PLAN: Plan is to observe the patient overnight. Patient will be seen by neurology and we will make further adjustments to the treatment plan based on their assessment. My faculty preceptor for this patient encounter was physically present during the encounter and was fully available. All aspects of the patient interview, examination, medical decision making process, and medical care plan development were reviewed and approved by the faculty preceptor. The faculty preceptor is aware and concurs with the plan as stated in the body of this note and will attest to such by his/her co-signature. I have both independently examined this patient as well as reviewed the H&P. I have discussed in detail with the resident the findings and plan of treatment as documented in the resident's note- Sophia Lucas MD MTDD
[2018-09-21] MEDS: SYMBICORT 80/4.5MCG INHALER 6GM INH SCH (20:00)
[2018-09-21] MEDS: IPRATROPIUM 0.5MG/ALBUTEROL 2.5MG INH SOL UD 3ML (DUONEB)(J7620) NEB SCH (20:00)
[2018-09-21 20:50] VITALS: BP 139/78
--- NOTE | 2018-09-21 20:50 | ECGEPIP ---
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
[2018-09-21] MEDS ORDERED: OMEPRAZOLE 20 MG CAP PO SCH (21:00)
[2018-09-21] MEDS: FLUTICASONE PROP 0.05% NASAL SPRAY 16 GM (FLONASE) SCH (22:02)
[2018-09-21] MEDS: HEPARIN SOD (PORCINE) 5000 UNITS/ML VIAL SC SCH (22:02)
[2018-09-22 01:53] LABS: MAGNESIUM LEVEL 2.1 MG/DL (1.8-2.4); POTASSIUM SERUM 3.8 MEQ/L (3.5-5.1)
[2018-09-22 06:00] VITALS: BP 113/57
[2018-09-22 06:26] LABS: BASO % 0.7 % (0.0-1.0); EOS # 0.4 10^3/uL (0.0-0.50); EOS % 7.2 % (0.0-3.0); HEMATOCRIT 39.6 % (42.0-52.0); HEMOGLOBIN 12.7 g/dl (13.5-17.5); LYMPH # 1.9 10^3/uL (1.5-4.5); LYMPH % 32.9 % (24.0-44.0); MEAN CORPUSCULAR HEMOGLOBIN 27.3 pg (27.0-33.0); MEAN CORPUSCULAR HGB CONC 32.1 g/dl (32.0-36.5); MEAN CORPUSCULAR VOLUME 85.2 fl (80.0-96.0); MONO # 0.5 10^3/uL (0.0-0.8); MONO % 8.8 % (0.0-5.0); NEUTROPHILS # 2.9 10^3/uL (1.8-7.7); PLATELET COUNT, AUTOMATED 223 10^3/uL (150-450); RED BLOOD COUNT 4.65 10^6/uL (4.30-6.10); WHITE BLOOD COUNT 5.7 10^3/uL (4.0-10.0)
[2018-09-22 06:34] LABS: HEMOGLOBIN A1c 5.6 %
[2018-09-22] MEDS: HEPARIN SOD (PORCINE) 5000 UNITS/ML VIAL SC SCH (06:38)
[2018-09-22 06:45] LABS: BLOOD UREA NITROGEN 17 MG/DL (7-18); CARBON DIOXIDE LEVEL 27 MEQ/L (21-32); CHLORIDE LEVEL 106 MEQ/L (98-107); CREATININE FOR GFR 1.03 MG/DL (0.70-1.30); GLOMERULAR FILTRATION RATE > 60.0 (>35); GLUCOSE, FASTING 85 MG/DL (70-100); POTASSIUM SERUM 3.9 MEQ/L (3.5-5.1); SODIUM LEVEL 139 MEQ/L (136-145); TRIGLYCERIDES LEVEL 72 MG/DL (<150)
[2018-09-22 06:46] LABS: CHOLESTEROL LEVEL 168 MG/DL (<200); CHOLESTEROL RISK RATIO 2.434 (<5); HDL CHOLESTEROL 69 MG/DL (>40); LDL CHOLESTEROL 85 MG/DL (<100); NON-HDL-C 99 MG/DL
[2018-09-22] MEDS: SYMBICORT 80/4.5MCG INHALER 6GM INH SCH (08:13)
[2018-09-22] MEDS ORDERED: ASPIRIN 81 MG ENTERIC TAB PO SCH (09:00)
[2018-09-22] MEDS ORDERED: CLOPIDOGREL 75 MG TAB PO SCH (09:00)
[2018-09-22] MEDS ORDERED: GABAPENTIN 100 MG CAP PO SCH (09:00)
[2018-09-22] MEDS ORDERED: FINASTERIDE 5 MG TAB PO SCH (09:00)
[2018-09-22] MEDS ORDERED: TAMSULOSIN 0.4 MG CAP PO SCH (09:00)
--- NOTE | 2018-09-22 09:03 | REP ---
CAROTID ULTRASOUND: Real-time ultrasound evaluation and duplex Doppler interrogation of the extracranial carotid vasculature is performed. There is mild plaquing and narrowing in both carotid bulbs extending into the internal and external carotid arteries. Luminal narrowing is less than 50%. There is no evidence of hemodynamically significant stenosis of either internal carotid artery. Normal flow velocities are seen. The left vertebral artery demonstrates normal direction of flow. The right vertebral artery is not visualized. RIGHT LEFT Peak systolic velocity ICA 78.3 cm/s 65.8 cm/s End diastolic velocity ICA 30.5 cm/s 27.7 cm/s Peak systolic velocity CCA 80.7 cm/s 79.6 cm/s Peak systolic velocity ECA 93.9 cm/s 85.4 cm/s ICA/CCA ratio 0.97 0.83 IMPRESSION: Bilateral luminal narrowing of the internal carotid arteries less than 50%. No evidence of hemodynamically significant stenosis. Electronically Signed by Carlos Wells MD 09/22/2018 08:55 A
[2018-09-22] MEDS: FLUTICASONE PROP 0.05% NASAL SPRAY 16 GM (FLONASE) SCH (10:15)
[2018-09-22] MEDS: IPRATROPIUM 0.5MG/ALBUTEROL 2.5MG INH SOL UD 3ML (DUONEB)(J7620) NEB SCH (10:18)
--- NOTE | 2018-09-22 13:15 | DS.PDOC ---
Discharge Summary General Date of Admission Sep 21, 2018 at 17:16 Date of Discharge 09/22/18 Primary Care Physician: JARRETT VANEGAS M.D. Attending Physician: ARCADIO MOYA MD Discharge Summary PROCEDURES PERFORMED DURING STAY: None. ADMITTING/DISCHARGE DIAGNOSES: 1. Transient ischemic attack 2. Asbestos exposure 3. Benign prostatic hypertrophy 4. Gastroesophageal reflux disease COMPLICATIONS/CHIEF COMPLAINT: Left facial numbness and left third and fourth digit numbness on the upper extremity HISTORY OF PRESENT ILLNESS/HOSPITAL COURSE: Patient is an 83-year-old male who presented to the emergency room on 09/21/2018 with a chief complaint of a 3 hour history of left facial numbness and left third and fourth digit numbness on the upper extremity. Patient did not complain of any weakness during this time. Patient did not have any difficulty speaking. The symptoms resolved on their own. Patient says he's been going through some stress lately because his daughter has a history of bipolar disorder and is mostly depressed. This is the third time this has happened to him. Throughout the patient's hospitalization MRI, MRA, carotid ultrasounds were all found to be negative. Patient had to attend to a family matter and was unable to wait for neurology consult before having the hospital. I did speak with neurology on admission of the patient. Patient did not have any neuro symptoms overnight, did not have any events on telemetry. An echocardiogram is still pending and will need to be followed up on. Patient was deemed safe for discharge. DISCHARGE MEDICATIONS: Please see below. ALLERGIES: Please see below. PHYSICAL EXAMINATION ON DISCHARGE: Vitals: (see below) General: No acute distress, laying comfortably in bed. HEENT: Moist mucous membranes. Neck: No JVD or lymphadenopathy Cardiac: RRR, No murmurs Pulm: Clear to auscultation b/l. No wheezing, rhonchi Abd: NT/ND + BS Ext: No edema or cyanosis Neuro: 5/5 strength in upper and lower extremity. Patient reports sensation to gross touch is intact bilaterally. Cranial nerves II through XII are intact bilaterally. Finger to nose, rapid alternating movements, and [id number] tests were negative. LABORATORY DATA: Please see below. IMAGING: A head CT performed on 09/21/2018 showed diffuse atrophy with mild vascular calcification. There was no acute intracranial abnormality. A chest x-ray performed on 09/21/2018 showed a stable exam there was complete opacification the left hemithorax. No acute infiltrate in the right lung. A MRA of the brain performed on 09/21/2018 shows no significant intracranial arterial stenosis or occlusion. There was also no aneurysm or AVM. An MRI of the brain performed on 09/21/2018 showed atrophy and small vessel ischemic changes. There was no acute infarct. A ultrasound of the carotid arteries performed on 09/21/2018 showed less than 50% stenosis bilaterally. PROGNOSIS: Good ACTIVITY: As tolerated. DIET: Regular DISCHARGE PLAN/DISPOSITION: Discharge home DISCHARGE INSTRUCTIONS: 1. Follow-up with primary care within 7-10 days after discharge DISCHARGE CONDITION: Stable. TIME SPENT ON DISCHARGE: Greater than 30 minutes. Vital Signs/I&Os Vital Signs Date Time Temp Pulse Resp B/P (MAP) Pulse Ox O2 Delivery O2 Flow Rate FiO2 09/22/18 06:00 98.1 61 19 113/57 (75) 95 09/21/18 19:15 Room Air I&O- Last 24 Hours up to 6 AM 09/22/18 06:00 Intake Total 360 ml Output Total 100 ml Balance 260 ml Laboratory Data Labs 24H Laboratory Tests 2 09/21/18 14:41: Immature Granulocyte % (Auto) 0.3, White Blood Count 6.3, Red Blood Count 4.97, Hemoglobin 13.9, Hematocrit 42.9, Mean Corpuscular Volume 86.3, Mean Corpuscular Hemoglobin 28.0, Mean Corpuscular Hemoglobin Concent 32.4, Red Cell Distribution Width 13.2, Platelet Count 227, Neutrophils (%) (Auto) 67.0H, Lymphocytes (%) (Auto) 21.0L, Monocytes (%) (Auto) 7.3H, Eosinophils (%) (Auto) 3.8H, Basophils (%) (Auto) 0.6, Neutrophils # (Auto) 4.2, Lymphocytes # (Auto) 1.3L, Monocytes # (Auto) 0.5, Eosinophils # (Auto) 0.2, Basophils # (Auto) 0.0, Nucleated Red Blood Cells % (auto) 0.0, Prothrombin Time 12.5, Prothromb Time International Ratio 0.92, Anion Gap 6L, Glomerular Filtration Rate > 60.0, Blood Urea Nitrogen 21H, Creatinine 1.01, Sodium Level 140, Potassium Level 4.2, Chloride Level 106, Carbon Dioxide Level 28, Calcium Level 8.3L, Total Creatine Kinase 155, Creatine Kinase MB 5.0H, Creatine Kinase MB Relative Index 3.48, Troponin I < 0.02 09/22/18 01:23: Magnesium Level 2.1 09/22/18 05:42: Immature Granulocyte % (Auto) 0.4, White Blood Count 5.7, Red Blood Count 4.65, Hemoglobin 12.7L, Hematocrit 39.6L, Mean Corpuscular Volume 85.2, Mean Corpuscular Hemoglobin 27.3, Mean Corpuscular Hemoglobin Concent 32.1, Red Cell Distribution Width 13.3, Platelet Count 223, Neutrophils (%) (Auto) 50.0, Lymphocytes (%) (Auto) 32.9, Monocytes (%) (Auto) 8.8H, Eosinophils (%) (Auto) 7.2H, Basophils (%) (Auto) 0.7, Neutrophils # (Auto) 2.9, Lymphocytes # (Auto) 1.9, Monocytes # (Auto) 0.5, Eosinophils # (Auto) 0.4, Basophils # (Auto) 0.0, Nucleated Red Blood Cells % (auto) 0.0, Anion Gap 6L, Glomerular Filtration Rate > 60.0, Calcium Level 8.0L, Estimated Mean Plasma Glucose 114H, Hemoglobin A1c 5.6, Triglycerides Level 72, LDL Cholesterol 85, Total Cholesterol 168, Non-HDL Cholesterol (LDL + VLDL) 99, Total HDL Cholesterol 69, Cholesterol/HDL Ratio 2.434 CBC/BMP Laboratory Tests 09/21/18 14:41 Red Blood Count 4.97, Mean Corpuscular Volume 86.3, Mean Corpuscular Hemoglobin 28.0, Mean Corpuscular Hemoglobin Concent 32.4, Red Cell Distribution Width 13.2, Neutrophils (%) (Auto) 67.0 H, Lymphocytes (%) (Auto) 21.0 L, Monocytes (%) (Auto) 7.3 H, Eosinophils (%) (Auto) 3.8 H, Basophils (%) (Auto) 0.6, Neutrophils # (Auto) 4.2, Lymphocytes # (Auto) 1.3 L, Monocytes # (Auto) 0.5, Eosinophils # (Auto) 0.2, Basophils # (Auto) 0.0, Calcium Level 8.3 L, Total Creatine Kinase 155 09/22/18 01:23 09/22/18 05:42 Red Blood Count 4.65, Mean Corpuscular Volume 85.2, Mean Corpuscular Hemoglobin 27.3, Mean Corpuscular Hemoglobin Concent 32.1, Red Cell Distribution Width 13.3, Neutrophils (%) (Auto) 50.0, Lymphocytes (%) (Auto) 32.9, Monocytes (%) (Auto) 8.8 H, Eosinophils (%) (Auto) 7.2 H, Basophils (%) (Auto) 0.7, Neutrophils # (Auto) 2.9, Lymphocytes # (Auto) 1.9, Monocytes # (Auto) 0.5, Eosinophils # (Auto) 0.4, Basophils # (Auto) 0.0 Discharge Medications Scheduled Albuterol/Ipratropium (Ipratropium [place]/Albut 0.5-2.5 (3) mg/3Ml) 1 Beth Beth, 1 BETH INH BID, (Reported) Aspirin (Aspirin 81) 81 Mg Tab, 81 MG PO DAILY, (Reported) Bimatoprost (Lumigan) 50 Drop/2.5 Ml Beth, 1 DROP OU QHS, (Reported) Budesonide/Formoterol (Symbicort 80-4.5 Mcg/Act) 60 Puff/Inhaler Aers, 2 PUFF INH BID, (Reported) Clopidogrel Bisulfate (Plavix) 75 Mg Tab, 75 MG PO DAILY, (Reported) Dicyclomine HCl (Dicyclomine HCl) 10 Mg Cap, 10 MG PO DAILY, (Reported) Finasteride (Finasteride) 5 Mg Tab, 5 MG PO DAILY, (Reported) Fluticasone Propionate (Flonase Allergy Relief) 50 Mcg/Act Spr, 1 SPRAYS NA BID, (Reported) Gabapentin (Gabapentin) 100 Mg Cap, 100 MG PO DAILY, (Reported) Omeprazole (Omeprazole) 20 Mg Cap, 20 MG PO QHS, (Reported) Tamsulosin Hydrochloride (Flomax) 0.4 Mg Cap, 0.4 MG PO DAILY, (Reported) Allergies Coded Allergies: No Known Allergies (Unverified , 12/25/16) GME ATTESTATION GME ATTESTATION My faculty preceptor for this patient encounter was physically present during the encounter and was fully available. All aspects of the patient interview, examination, medical decision making process, and medical care plan development were reviewed and approved by the faculty preceptor. The faculty preceptor is aware and concurs with the plan as stated in the body of this note and will attest to such by his/her cosignature. JAMIA VILLALPANDO DO Sep 22, 2018 13:15
--- NOTE | 2018-09-22 22:11 | ECHO ---
DATE OF PROCEDURE: 09/22/2018 REFERRING PHYSICIAN: Allen Viveros MD INDICATION: Transient cerebral ischemia, unspecified. HEIGHT: 173 cm WEIGHT: 72 kg 2D MEASUREMENTS: Ventricular septum: 1.23 cm Posterior wall: 1.16 cm Left ventricle diastole: 4.8 cm Aortic root: 2.7 cm LVOT: 2.0 cm Left atrium: 3.7 cm Left atrial volume index: 35 DOPPLER MEASUREMENTS: Aortic valve velocity: 113 cm/s LVOT velocity: 101 cm/s LVOT VTI: 19.1 cm Trace tricuspid regurgitation. MITRAL ANNULAR TISSUE DOPPLER: E prime lateral: 5.65 cm/s E prime septal: 5.85 cm/s DESCRIPTION: Rhythm was sinus. This is a moderately technically difficult echocardiogram. No pericardial effusion. This is a 2D, M-mode, color flow Doppler and pulse wave Doppler examination that included mitral annular tissue Doppler. Saline bubble study was performed from the apical four chamber view. CONCLUSIONS: 1. Borderline concentric left ventricle hypertrophy. Normal regional left ventricle (LV) wall motion and wall thickening. Normal LV systolic function. Left ventricular ejection fraction (LVEF) 60% by visual estimate. Unable to fully assess LV diastolic function but grade 1 left ventricle (LV) diastolic dysfunction is likely. 2. Mild left atrial dilatation by left atrial volume index 3. Moderately technically difficult echocardiogram. 4. Bubble study negative for detection of right heart to left heart intracardiac shunting.
--- NOTE | 2018-09-23 07:08 | ECGEPIP ---
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
== END 2018-09-22 13:15 | disposition home or self-care (01) ==
LOC: M ED 13:15 → M ED INP 17:16 → M MSPAV 20:45
PROVIDERS: ADMIT Internal Medicine; ATTEND Internal Medicine
DX: G45.9 Transient cerebral ischemic attack, unspecified (principal); Z77.090 Contact with and (suspected) exposure to asbestos; N40.0 Benign prostatic hyperplasia without lower urinary tract symptoms; K21.9 Gastro-esophageal reflux disease without esophagitis; Z79.82 Long term (current) use of aspirin; Z79.899 Other long term (current) drug therapy; R91.8 Other nonspecific abnormal finding of lung field
CPT/HCPCS: 36415; 70450; 70544; 70551; 71045; 80048; 80061; 82550; 82553; 83036; 83735; 84132; 84484; 85025; 85610; 93005; 93041; 93306; 93880; 94640; 94760; 96372; 99285; G0378

== ENCOUNTER → 2018-10-14 | Outpatient (CLI) | payer MEDICARE ==
[~2018-10-14] MED LIST changes: +ASPI81TA85 PO; +DICY1CAP8 PO
--- NOTE | 2018-10-14 14:22 | REP ---
Clinical: Increasing pain. Technique: Internal rotation, external rotation, and Y view of the right shoulder. Findings: Generalized age-related osteopenia is appreciated along with subtle cortical irregularity and blunting involving the glenoid rim. Mild cortical irregularity also identified at the acromioclavicular joint. The humeral head appears intact and relatively normal. Subacromial space is normal. No periarticular calcifications or loose bodies are identified. Impression: Generalized osteopenia and mild arthritic changes. Electronically Signed by Mehul Waldrop MD 10/14/2018 02:13 P
== END ==
LOC: M WUC 13:57
PROVIDERS: ATTEND Family Medicine
DX: M85.811 Other specified disorders of bone density and structure, right shoulder (principal); M25.511 Pain in right shoulder

== ENCOUNTER 2018-10-16 00:55 | Inpatient (IN) | payer MEDICARE ==
[~2018-10-16] VITALS: Ht 172.7 cm; Wt 76.7 kg
[~2018-10-16 00:55] MED LIST changes: -ASPI81TA85 PO
[2018-10-16 01:31] LABS: BASO % 0.5 % (0.0-1.0); EOS # 0.4 10^3/uL (0.0-0.50); EOS % 5.7 % (0.0-3.0); HEMATOCRIT 41.8 % (42.0-52.0); HEMOGLOBIN 13.1 g/dl (13.5-17.5); LYMPH # 1.6 10^3/uL (1.5-4.5); LYMPH % 25.8 % (24.0-44.0); MEAN CORPUSCULAR HEMOGLOBIN 27.5 pg (27.0-33.0); MEAN CORPUSCULAR HGB CONC 31.3 g/dl (32.0-36.5); MEAN CORPUSCULAR VOLUME 87.6 fl (80.0-96.0); MONO # 0.6 10^3/uL (0.0-0.8); MONO % 9.4 % (0.0-5.0); NEUTROPHILS # 3.6 10^3/uL (1.8-7.7); NEUTROPHILS % 58.3 % (36.0-66.0); PLATELET COUNT, AUTOMATED 241 10^3/uL (150-450); RED BLOOD COUNT 4.77 10^6/uL (4.30-6.10); WHITE BLOOD COUNT 6.2 10^3/uL (4.0-10.0)
[2018-10-16 01:42] LABS: INR 0.96; PARTIAL THROMBOPLASTIN TIME 27.6 SECONDS (25.4-37.6); PROTHROMBIN TIME 12.9 SECONDS (12.1-14.4)
[2018-10-16 01:57] LABS: ALBUMIN 3.5 GM/DL (3.2-5.2); BILIRUBIN,DIRECT 0.2 MG/DL (0.0-0.2); BILIRUBIN,TOTAL 0.6 MG/DL (0.2-1.0); CALCIUM LEVEL 8.5 MG/DL (8.8-10.2); CREATININE FOR GFR 1.24 MG/DL (0.70-1.30); GLOMERULAR FILTRATION RATE 59.6 (>35); TOTAL PROTEIN 7.3 GM/DL (6.4-8.2)
--- NOTE | 2018-10-16 04:27 | REPVR ---
EXAM: CT Abdomen and Pelvis Without Contrast EXAM DATE/TIME: 10/16/2018 3:02 AM CLINICAL HISTORY: 83 years old, male; Signs and symptoms; Other: Rectal bleeding; Additional info: Diverticular bleed TECHNIQUE: Imaging protocol: Axial computed tomography images of the abdomen and pelvis without contrast. Coronal and sagittal reformatted images were created and reviewed. Radiation optimization: All CT scans at this facility use at least one of these dose optimization techniques: automated exposure control; mA and/or kV adjustment per patient size (includes targeted exams where dose is matched to clinical indication); or iterative reconstruction. COMPARISON: CT ABD PELVIS W/O CONTRAST 04/25/2018 8:19 PM FINDINGS: Lower thorax: Name mediastinal structures are shifted into the left chest. A thickwalled loculated fluid collection in the visualized left chest appears unchanged from the prior exam, probably related to a left pneumonectomy. Left diaphragmatic calcifications and partially calcified right pleural plaques are again noted. ABDOMEN: Liver: There are no focal liver lesions present. Gallbladder and bile ducts: There is a densely calcified stone or stones in the neck of the gallbladder. There is no significant gallbladder wall thickening or adjacent inflammatory change. There is no biliary ductal dilation. Pancreas: The pancreas is normal with no ductal dilation. Spleen: The spleen is normal. Adrenals: The adrenal glands are normal. Kidneys and ureters: There is a nonobstructing 4 mm stone in the right kidney upper pole, unchanged. There are no ureteral stones or hydronephrosis. There is a 10 mm cyst in the right kidney lower pole, measuring simple fluid attenuation. There is a 9 mm exophytic hyperdense lesion in the left kidney midpole, probably a hyperdense cyst, and unchanged from prior the exam. No followup needed. Stomach and bowel: The small bowel appears unremarkable. Extensive diverticulosis is present in the sigmoid and descending colon. There is thickening of a segment of the sigmoid colon with subtle adjacent stranding, which may be mild inflammation from acute diverticulitis. Appendix: A normal appendix is identified. PELVIS: Bladder: The bladder is unremarkable. No stones identified. Reproductive: The prostate gland and seminal vesicles are normal. ABDOMEN and PELVIS: Intraperitoneal space: There is no evidence of free intraperitoneal or pelvic fluid. There is no free intraperitoneal air. Bones/joints: Degenerative endplate changes are seen at multiple levels in the visualized spine. Evidence of partial rib resections and rib deformities in the left lower chest are unchanged however there is prior thoracotomy. Loss of height of the T12 vertebral body appears unchanged. Soft tissues: Unremarkable. Vasculature: The aorta demonstrates moderate atherosclerotic calcification. Lymph nodes: Normal. No enlarged lymph nodes. IMPRESSION: Extensive diverticulosis. Segmental thickening of the sigmoid colon with minimal adjacent stranding may represent mild acute diverticulitis. No evidence of abscess or perforation. COMMENT: Consistent with the [employer]'s Incidental Findings Committee Report (J Am Juana Radiol 2010): Unless the patient's specific circumstances suggest otherwise, any liver lesion 0.5 cm or less, any cystic kidney lesion less than 1.0 cm, and/or any adrenal lesion 1.0 cm or less not otherwise characterized in this report as possessing suspicious or indeterminate imaging features is/are highly likely to be benign and do not require follow-up imaging or biopsy. Electronically signed by: Cristiane Thayer On 10/16/2018 04:27:16 AM
[2018-10-16] MEDS ORDERED: D5W/0.45% SODIUM CHLORIDE 1,000 ML IV SCH (05:22)
[2018-10-16] MEDS ORDERED: ONDANSETRON 4MG/2ML VIAL (J2405) IV PRN (05:30)
[2018-10-16] MEDS ORDERED: cefTRIAXone SOD 1 GM in D5W MINI-BAG PLUS 50 ML IV SCH (06:00)
[2018-10-16] MEDS ORDERED: metroNIDAZOLE (FLAGYL) 500 MG TAB PO SCH (06:00)
[2018-10-16 06:54] VITALS: BP 157/77
[2018-10-16 07:51] LABS: HEMATOCRIT 38.6 % (42.0-52.0); HEMOGLOBIN 12.3 g/dl (13.5-17.5)
[2018-10-16] MEDS: SYMBICORT 80/4.5MCG INHALER 6GM INH SCH ×2 (08:20→20:12)
[2018-10-16] MEDS: IPRATROPIUM 0.5MG/ALBUTEROL 2.5MG INH SOL UD 3ML (DUONEB)(J7620) NEB PRN ×2 (08:21→20:13)
[2018-10-16] MEDS: FLUTICASONE PROP 0.05% NASAL SPRAY 16 GM (FLONASE) SCH ×2 (09:00→21:00)
[2018-10-16] MEDS: FINASTERIDE 5 MG TAB PO SCH (09:30)
[2018-10-16] MEDS: TAMSULOSIN 0.4 MG CAP PO SCH (09:34)
[2018-10-16] MEDS: GABAPENTIN 100 MG CAP PO SCH (09:34)
[2018-10-16] MEDS: D5W/0.9% SODIUM CHLORIDE 1,000 ML IV SCH ×3 (09:36→23:32)
[2018-10-16] MEDS: CIPROFLOXACIN 400 MG in APPROPRIATE DILUENT 1 EA IV SCH ×2 (09:38→21:00)
[2018-10-16] MEDS: PANTOPRAZOLE 40MG INJ (PROTONIX) (C9113) IV SCH ×2 (09:38→21:00)
[2018-10-16 10:00] VITALS: BP 119/63
--- NOTE | 2018-10-16 10:47 | HPE ---
DATE OF ADMISSION: 10/16/2018 CHIEF COMPLAINT: Two episode of bright red blood per rectum. HISTORY OF PRESENT ILLNESS: The patient is an 83-year-old male, he has a significant past medical history of benign prostatic hypertrophy (BPH), asbestosis as per chart, though he says he is not aware of that, transient ischemic attacks (TIAs) in the past, no overt CVA, on dual antiplatelet therapy with aspirin and Plavix, diverticulosis, gastroesophageal reflux disease (GERD), asthma, chronic obstructive pulmonary disease (COPD). He presents to the emergency room with two episodes of bright red blood per rectum. Initially, the patient states this was painless, however now he says he has some mild discomfort in the lower abdominal area. He denies any nausea or vomiting. He denies any chest pain, shortness of breath, fevers or chills. He denies any urinary symptoms. His last colonoscopy was done in 2014, which he states that he had polyps which were removed. His follow-up was 3-5 years later. He was actually scheduled to have a repeat colonoscopy next week with Dr. Mosquera. A CT shows diverticulosis, possible mild acute diverticulosis. He did have a mehul blood bowel movement while present in the ER which I was able to witness. Surgery, Dr. Diamond has been called who will see the patient in the a.m. PAST MEDICAL HISTORY: See history of present illness. PAST SURGICAL HISTORY: He has had resection of a lung mass which was benign as per the patient. He also has a cystoscopy. ALLERGIES: No known drug allergies. HOME MEDICATIONS: - DuoNeb - aspirin - Plavix - omeprazole - Lumigan - Symbicort - finasteride - fluticasone - gabapentin - tamsulosin SOCIAL HISTORY: Denies tobacco, alcohol or illicit drug use. FAMILY HISTORY: Diabetes, COPD. REVIEW OF SYSTEMS: A 12 point review of systems was completed, all of which were negative except those listed in the history of present illness. VITAL SIGNS ON ADMISSION: Temperature 97, heart rate 85, respirations 18, blood pressure 132/82, satting at 96% on room air. PHYSICAL EXAMINATION: GENERAL: Well nourished, in no apparent distress. HEAD: Normocephalic, atraumatic. EYES: Extraocular movements are intact. Pupils equal, round, reactive to light. NECK: Supple. No jugular venous pressure (JVP). LUNGS: Clear to auscultation bilaterally. CARDIOVASCULAR: Regular rate and rhythm. Normal S1 and S2. No murmurs, gallops, or rubs. ABDOMEN: Soft, nontender, nondistended. Positive bowel sounds. No rebound or guarding. EXTREMITIES: No pitting edema or calf tenderness. SKIN: Intact. No rashes, lesions or breakdowns. NEUROLOGICAL EXAM: Alert and oriented times three. No focal deficits appreciated on exam. LABS AND IMAGING COMPLETED IN THE EMERGENCY DEPARTMENT: White count of 6, hemoglobin and hematocrit of 13/41, platelet count of 241. Coags within normal limits. Chemistry shows a BUN and creatinine of 17/1.24. CT of the abdomen and pelvis shows extensive diverticulosis, segmental thickening of the sigmoid colon with minimal adjacent stranding, may represent mild acute diverticulitis. ASSESSMENT/PLAN: Bright red blood per rectum, likely lower GI bleed, possibly secondary to diverticular bleed versus hemorrhoidal bleed versus AV malformation versus possibly, less likely, malignancy. Serial hemoglobins. Nothing by mouth for now. To be seen by surgery in the a.m. IV fluids while nothing by mouth. Transfuse to keep hemoglobin greater than 8. Two large bore IVs, IV fluids. No need to send stool for occult blood as the patient is having mehul bloody stools. For questionable mild acute diverticulitis, will treat with ceftriaxone and Flagyl. Patient can be transitioned to oral regimen. He has very minimal lower abdominal discomfort. Clinical picture is somewhat inconsistent with diverticulitis, however at this point in time he does state he has some mild discomfort. He has been able to tolerate by mouth and he is not having any nausea. For BPH, will continue his finasteride and Flomax. History of TIA/CVA. Dual antiplatelets to be held. History of glaucoma. Lumigan eye drops. COPD, asthma. DuoNebs as needed. Continue his Symbicort. Supportive deep vein thrombosis (DVT) prophylaxis. Sequential compression devices. Diet. Nothing by mouth for now. Patient will be evaluated by Dr. Diamond in the a.m. to assess the need for a colonoscopy if there is continued bleeding. Will trend hemoglobin every 8 hours for now when transfused to keep his hemoglobin greater than 8.
--- NOTE | 2018-10-16 10:57 | CR ---
DATE OF CONSULTATION: 10/16/2018 REASON FOR CONSULT: Is gastrointestinal (GI) bleed. HISTORY OF PRESENT ILLNESS: Patient is an 83-year-old male with a history of diverticular bleeding. Last episode was in 2014. He was hospitalized during that time and had an endoscopy done by Dr. Mosquera showing that he had a couple polyps as well as extensive diverticular disease in the descending and sigmoid colon. He has not had any problems since then up until last evening, he had urge to go the bathroom and passed pure blood. He had that happen again in the emergency room, and he had one other episode since then that he said was starting to look more black. Other than that, he has no complaints. No abdominal pain. No nausea or vomiting. No fevers or chills, and no urge to go the bathroom currently. His labs have been stable so far, and his last colonoscopy was the one in 2014. Chronic obstructive pulmonary disease (COPD), asthma, history of lung mass, and hypoglycemia. PAST SURGICAL HISTORY: Left pneumonectomy and multiple colonoscopies. ALLERGIES: None. HOME MEDICATIONS: Please see medical record. SOCIAL HISTORY: Denies drug, alcohol, tobacco abuse. FAMILY HISTORY: Noncontributory. REVIEW OF SYSTEMS: Pertinent positives and negative as stated in history of present illness (HPI). PHYSICAL EXAM: GENERAL: Alert and oriented (A and O) times three. No acute distress. VITAL SIGNS: Temperature 97.2, pulse 58, respirations 18, blood pressure 157/77, pulse oximetry 99% on room air. HEENT: Pupils equally round react to light and accommodation. Heart: S1, S2, regular rate and rhythm. Lungs: Clear to auscultation bilaterally. Abdomen: Soft, nontender, nondistended. Bowel sounds positive. EXTREMITIES: No clubbing, cyanosis, or edema. LABS: White count 6.2, hemoglobin 13.1, platelets 241, potassium 4, creatinine 1.24. IMAGING: CT abdomen/pelvis shows extensive diverticulosis with a small area of thickening in the sigmoid colon with minimal adjacent stranding that may represent mild acute diverticulitis. No evidence of any abscess of perforation. ASSESSMENT/PLAN: Patient is 83-year-old male with history of diverticular bleeding, who appears to be here with the same thing. Hemoglobin is stable at this point. He is not orthostatic. We will continue to monitor his hemoglobin. Keep him on a clear liquid diet for now and see if this will stop on its own. If the bleeding does not stop over the next 48-72 hours to the point where he requires a blood transfusion, then we will consider endoscopy and see if we can stop it that way.
--- NOTE | 2018-10-16 12:27 | ECGEPIP ---
Stationary ECG Study [facility] - ED Test Date: 2018-10-16 Pat Name: LIAM OLEA Department: Room: [place] [address] Gender: M [employer]inter: LUCIA : [id number] Requested By: Jacques Song Order Number: [id number] Reading MD: Phyllis Schneider Measurements Intervals [place] Rate: 62 P: 5 TN: 171 QRS: 52 QRSD: 99 T: -16 QT: 424 QTc: 433 Interpretive Statements SINUS RHYTHM POSSIBLE LEFT ATRIAL ENLARGEMENT MODERATE T-WAVE ABNORMALITY, CONSIDER ANTERIOR ISCHEMIA BASELINE WANDERING AND ARTIFACT MAY AFFECT READING SIMILAR ST T WAVE MORPHOLOGY TO 09/21/18 WHEN COMPARED TO NO LONGER LBBB Electronically Signed On 10-16-2018 12:27:20 EDT by Phyllis Schneider
[2018-10-16 13:51] LABS: HEMATOCRIT 36.7 % (42.0-52.0); HEMOGLOBIN 11.7 g/dl (13.5-17.5)
[2018-10-16 14:00] VITALS: BP_SYST 110; BP_SYST 124; BP_SYST 127; BP_DIAS 64; BP_DIAS 78; BP_DIAS 79
--- NOTE | 2018-10-16 14:47 | IPN ---
DATE OF SERVICE: 10/16/2018 Patient seen and examined, admitted overnight for bright red blood per rectum. Patient had a total of three episodes overnight, once at home, once in the emergency room, once on the floor. Patient denies any lightheadedness, chest pain, pressure, or discomfort. Fairly comfortable. Patient reported previous episode of this happening. Denies any abdominal pain, nausea, vomiting. Denies any fever, chill. VITAL SIGNS: Temperature 97.6, pulse 79, respiration 20, blood pressure 119/63, pulse oximetry 97% on room air. LABORATORY: WBC 6.2, hemoglobin and hematocrit 13.1/41.8, platelets 241. Chemistry: Sodium 140, potassium 4, chloride 105, bicarbonate 31, BUN 17, creatinine 1.24. C-reactive protein negative. PHYSICAL EXAM: GENERAL: Patient alert, comfortable, in no acute distress. HEENT: Normocephalic, atraumatic. PULMONARY: Bilateral clear. CARDIAC: Regular, S1, S2. ABDOMEN: Soft, nontender. Positive bowel sounds. EXTREMITIES: No clubbing, cyanosis, or edema. ASSESSMENT AND PLAN: This is an 83-year-old male patient with underlying medical history of BPH, asbestosis, TIA, no CVA, on dual antiplatelet, aspirin and Plavix, diverticulosis, gastroesophageal reflux disease (GERD), asthma, chronic obstructive pulmonary disease, presented to the emergency room with two episodes of bright red blood per rectum that is painless, there is minimal abdominal discomfort, denies any nausea or vomiting. PROBLEMS: 1. Acute bright red blood per rectum, acute gastrointestinal (GI) bleed. Monitor hemoglobin and hematocrit. Holding aspirin, Plavix. Transfuse as needed. Intravenous fluids. Orthostatic has been negative. Consulted general surgery, Dr. Diamond. Patient sees Dr. Oni Mosquera as outpatient. CT scan appreciated. Likely diverticular bleed. Will monitor closely. 2. Acute diverticulitis , clear liquid diet. Shayy and Leia. Consulted general surgery. Patient has a history of diverticulosis and diverticular bleed in the past. Will monitor closely. Followup C-reactive protein. 3. BPH. Continue current medication. 4. History of asbestosis. Outpatient followup. 5. History of TIA. Holding aspirin, Plavix given patient having acute GI bleed. Likely lower GI bleed, diverticular bleed, given presentation mentioned above. 6. Neuropathy. Continue current medication. Deep venous thrombosis (DVT) prophylaxis. Thromboembolism deterrents (TEDs) and sequentials. DISPOSITION: Pending clinical improvement. Will monitor H/H and bleeding. If worsened, will need to contact Dr. Diamond or Dr. Oni Mosquera again for esophagogastroduodenoscopy (EGD)/colonoscopy. Transfuse as needed. MTDD
[2018-10-16] MEDS: metroNIDAZOLE 500 MG in APPROPRIATE DILUENT 1 EA IV SCH ×2 (15:39→21:56)
[2018-10-16 19:21] LABS: HEMATOCRIT 34.8 % (42.0-52.0); HEMOGLOBIN 11.2 g/dl (13.5-17.5)
[2018-10-16] MEDS: LUMIGAN (PATIENT'S OWN MED) OU SCH (21:00)
[2018-10-16 22:00] VITALS: BP 118/75
[2018-10-16 23:30] VITALS: BP_SYST 108; BP_SYST 117; BP_SYST 118; BP_DIAS 58; BP_DIAS 60; BP_DIAS 62
[2018-10-17 02:00] VITALS: BP 118/75
[2018-10-17 02:01] LABS: HEMATOCRIT 35.3 % (42.0-52.0); HEMOGLOBIN 11.3 g/dl (13.5-17.5)
[2018-10-17] MEDS: metroNIDAZOLE 500 MG in APPROPRIATE DILUENT 1 EA IV SCH (05:12)
[2018-10-17 06:00] VITALS: BP 114/64
[2018-10-17 07:03] LABS: HEMATOCRIT 36.4 % (42.0-52.0); HEMOGLOBIN 11.5 g/dl (13.5-17.5); MEAN CORPUSCULAR HEMOGLOBIN 27.4 pg (27.0-33.0); MEAN CORPUSCULAR HGB CONC 31.6 g/dl (32.0-36.5); MEAN CORPUSCULAR VOLUME 86.9 fl (80.0-96.0); PLATELET COUNT, AUTOMATED 201 10^3/uL (150-450); RED BLOOD COUNT 4.19 10^6/uL (4.30-6.10); WHITE BLOOD COUNT 4.7 10^3/uL (4.0-10.0)
[2018-10-17] MEDS: IPRATROPIUM 0.5MG/ALBUTEROL 2.5MG INH SOL UD 3ML (DUONEB)(J7620) NEB PRN ×2 (07:18→21:06)
[2018-10-17 07:22] LABS: BLOOD UREA NITROGEN 10 MG/DL (7-18); C REACTIVE PROTEIN QUANTITATIV < 0.30 MG/DL (0.00-0.30); CALCIUM LEVEL 7.9 MG/DL (8.8-10.2); CARBON DIOXIDE LEVEL 27 MEQ/L (21-32); CHLORIDE LEVEL 110 MEQ/L (98-107); CREATININE FOR GFR 1.07 MG/DL (0.70-1.30); GLOMERULAR FILTRATION RATE > 60.0 (>35); GLUCOSE, FASTING 104 MG/DL (70-100); POTASSIUM SERUM 4.1 MEQ/L (3.5-5.1); SODIUM LEVEL 142 MEQ/L (136-145)
[2018-10-17] MEDS: SYMBICORT 80/4.5MCG INHALER 6GM INH SCH ×2 (08:28→20:00)
--- NOTE | 2018-10-17 08:46 | IPNPDOC ---
Text Note Date of Service The patient was seen on 10/17/18. NOTE No acute events overnight. Only one BM this am and it was firm and black. No m ore bright red bleeding. Denies fevers, pain, or weakness. VSSAF NAD abd - soft, non distended, no rebound or guarding, non tender labs - see below A) 83y/o male with lower GI bleeding likely secondary to a diverticular bleed P) reg diet stable for d/c continue with outpatient GI consultation tomorrow as scheduled Rufino Diamond DO VS,Antoine, I+O VS, Rodrigoe, I+O Laboratory Tests 10/16/18 13:40 10/16/18 19:12 10/17/18 01:49 10/17/18 06:35 Red Blood Count 4.19 L, Mean Corpuscular Volume 86.9, Mean Corpuscular Hemoglobin 27.4, Mean Corpuscular Hemoglobin Concent 31.6 L, Red Cell Distribution Width 13.8, Calcium Level 7.9 L Vital Signs Date Time Temp Pulse Resp B/P (MAP) Pulse Ox O2 Delivery O2 Flow Rate FiO2 10/17/18 06:00 96.7 71 20 114/64 (81) 96 10/16/18 05:26 Room Air I&O- Last 24 Hours up to 6 AM 10/17/18 05:59 Intake Total 4290 ml Output Total 2925 ml Balance 1365 ml BENJAMIN DIAMOND DO Oct 17, 2018 08:46
[2018-10-17] MEDS: FINASTERIDE 5 MG TAB PO SCH (09:00)
[2018-10-17] MEDS: FLUTICASONE PROP 0.05% NASAL SPRAY 16 GM (FLONASE) SCH ×2 (09:04→20:37)
[2018-10-17] MEDS: GABAPENTIN 100 MG CAP PO SCH (09:04)
[2018-10-17] MEDS: TAMSULOSIN 0.4 MG CAP PO SCH (09:04)
[2018-10-17] MEDS: PANTOPRAZOLE 40MG TAB (PROTONIX) PO SCH (09:04)
[2018-10-17] MEDS ORDERED: PLAV1TAB2 PO (17:45)
--- NOTE | 2018-10-17 17:50 | IPNPDOC ---
Date Seen The patient was seen on 10/17/18. Progress Note SUBJECTIVE: Patient is a 83-year-old male patient admitted for bright red blood per rectum. Patient was seen and examined this morning. States be feeling well. Has no complaints. Denies abdominal pain, nausea, vomitting, diarrhea, cospitation. Tolerating a regular diet this morning. Evaluated by Dr. Diamond who recommended patient is stable for discharge. H/H has been stable since admission and no blood transfusion since admission. Does admit to dark stool this AM but it was nonbloody. Patient is uncomfortable to be discharged today for he would like to have a closer follow-up appointment with Dr. Stinson instead of his 11/04/2018 appointment. No other overnight events reported by nursing. OBJECTIVE PHYSICAL EXAMINATION: VITAL SIGNS: Please see below. GENERAL: Alert, comfortable, in no acute distress. Sitting up in his chair reading a newspaper HEENT: Atraumatic normocephalic CARDIOVASCULAR: Normal S1-S2 sounds regular rate and rhythm no audible murmurs rubs or gallops RESPIRATORY: Laterally clear to auscultate no audible Rales wheezing or rhonchi ABDOMINAL: Soft nontender positive bowel sounds in all 4 quadrants EXTREMITIES: No lower extremity edema or calf tenderness DVT prophylaxis ordered?: Yes Deepa and landen's ASSESSMENT AND PLAN: This is a 83-year-old male patient with underlying medical history of BPH, asbestosis, TIA, no CVA, on dual antiplatelet, aspirin and Plavix, diverticulosis, gastroesophageal reflux disease (GERD), asthma, chronic obstructive pulmonary disease, presented to the emergency room with two episodes of bright red blood per rectum that is painless, there is minimal abdominal discomfort, denies any nausea or vomiting. PROBLEMS: Acute bright red blood per rectum, acute gastrointestinal (GI) bleed (resolved). -History of diverticulosis -H/H stable -Hold aspirin and Plavix Transfuse as needed. -Consulted general surgery, Dr. Diamond.-Recommended advance diet and stable for discharge -Follow up with Dr. Oni Mosquera as outpatient. -pending discharged in the a.m. CT abdomen positive for Segmental thickening of the sigmoid colon with minimal adjacent stranding may represent mild acute diverticulitis -No abdominal pain -No leukocytosis, CRP negative -Antibiotics not indicated discontinued Cipro and Flagyl. BPH c/w with Flomax and Proscar History of asbestosis -Outpatient followup. History of TIA. -Holding aspirin, Plavix given patient having acute GI bleed. -Continue Plavix on discharge while holding aspirin Neuropathy -c/w gabapentin 100 mg daily Deep venous thrombosis (DVT) prophylaxis -TEDs and sequentials. VS, I&O, 24H, Fishbone Vital Signs/I&O Vital Signs Date Time Temp Pulse Resp B/P (MAP) Pulse Ox O2 Delivery O2 Flow Rate FiO2 10/17/18 06:00 96.7 71 20 114/64 (81) 96 10/16/18 05:26 Room Air I&O- Last 24 Hours up to 6 AM 10/17/18 06:00 Intake Total 5730 ml Output Total 2925 ml Balance 2805 ml Laboratory Data 24H LABS Laboratory Tests 2 10/16/18 17:04: Bedside Glucose (Misc Panel) 83 10/16/18 21:09: Bedside Glucose (Misc Panel) 122H 10/17/18 06:35: Nucleated Red Blood Cells % (auto) 0.0, Anion Gap 5L, Glomerular Filtration Rate > 60.0, Blood Urea Nitrogen 10, Creatinine 1.07, Sodium Level 142, Potassium Level 4.1, Chloride Level 110H, Carbon Dioxide Level 27, Calcium Level 7.9L, Magnesium Level 2.0, C-Reactive Protein, Quantitative < 0.30 10/17/18 11:42: Bedside Glucose (Misc Panel) 91 CBC/BMP Laboratory Tests 10/16/18 19:12 10/17/18 01:49 10/17/18 06:35 Red Blood Count 4.19 L, Mean Corpuscular Volume 86.9, Mean Corpuscular Hemoglobi n 27.4, Mean Corpuscular Hemoglobin Concent 31.6 L, Red Cell Distribution Width 13.8, Calcium Level 7.9 L GME ATTESTATION GME ATTESTATION My faculty preceptor for this patient encounter was physically present during the encounter and was fully available. All aspects of the patient interview, examination, medical decision making process, and medical care plan development were reviewed and approved by the faculty preceptor. The faculty preceptor is aware and concurs with the plan as stated in the body of this note and will attest to such by his/her cosignature. ATTENDING NOTE I have both independently examined this patient as well as reviewed the note. I have discussed in detail with the resident the findings and plan of treatment as documented in the residents note. GA Cooper MD, DO Oct 17, 2018 14:51 NUNO COMBS MD Oct 18, 2018 18:01
[2018-10-17] MEDS: LUMIGAN (PATIENT'S OWN MED) OU SCH (20:37)
[2018-10-17 22:00] VITALS: BP 126/66
[2018-10-18 06:00] VITALS: BP 125/65
[2018-10-18 06:53] LABS: HEMATOCRIT 35.4 % (42.0-52.0); HEMOGLOBIN 11.4 g/dl (13.5-17.5); MEAN CORPUSCULAR HEMOGLOBIN 28.2 pg (27.0-33.0); MEAN CORPUSCULAR HGB CONC 32.2 g/dl (32.0-36.5); MEAN CORPUSCULAR VOLUME 87.6 fl (80.0-96.0); PLATELET COUNT, AUTOMATED 209 10^3/uL (150-450); RED BLOOD COUNT 4.04 10^6/uL (4.30-6.10); WHITE BLOOD COUNT 5.8 10^3/uL (4.0-10.0)
[2018-10-18] MEDS: IPRATROPIUM 0.5MG/ALBUTEROL 2.5MG INH SOL UD 3ML (DUONEB)(J7620) NEB PRN (07:18)
[2018-10-18] MEDS: SYMBICORT 80/4.5MCG INHALER 6GM INH SCH (07:18)
[2018-10-18 07:20] LABS: BLOOD UREA NITROGEN 12 MG/DL (7-18); C REACTIVE PROTEIN QUANTITATIV < 0.30 MG/DL (0.00-0.30); CALCIUM LEVEL 8.2 MG/DL (8.8-10.2); CARBON DIOXIDE LEVEL 28 MEQ/L (21-32); CHLORIDE LEVEL 107 MEQ/L (98-107); GLOMERULAR FILTRATION RATE > 60.0 (>35); GLUCOSE, FASTING 104 MG/DL (70-100); POTASSIUM SERUM 3.9 MEQ/L (3.5-5.1); SODIUM LEVEL 140 MEQ/L (136-145)
[2018-10-18] MEDS: GABAPENTIN 100 MG CAP PO SCH (08:06)
[2018-10-18] MEDS: TAMSULOSIN 0.4 MG CAP PO SCH (08:06)
[2018-10-18] MEDS: PANTOPRAZOLE 40MG TAB (PROTONIX) PO SCH (08:06)
[2018-10-18] MEDS: FINASTERIDE 5 MG TAB PO SCH (08:07)
[2018-10-18] MEDS: FLUTICASONE PROP 0.05% NASAL SPRAY 16 GM (FLONASE) SCH (08:08)
[2018-10-18] MEDS ORDERED: ASPI81TA85 PO (08:38)
--- NOTE | 2018-10-18 08:50 | IPNPDOC ---
Text Note Date of Service The patient was seen on 10/18/18. NOTE No acute events overnight. He had another black BM last night, and then a brown one this am. VSSAF NAD abd - soft, non distended, no rebound or guarding, non tender labs - see below A) 83y/o male with lower GI bleeding likely secondary to a diverticular bleed that has resolved P) reg diet stable for d/c continue with outpatient GI consultation tomorrow as scheduled Rufino Diamond DO VS,Antoine, I+O VSAntoine, I+O Laboratory Tests 10/18/18 06:16 Red Blood Count 4.04 L, Mean Corpuscular Volume 87.6, Mean Corpuscular Hem oglobin 28.2, Mean Corpuscular Hemoglobin Concent 32.2, Red Cell Distribution Width 13.7, Calcium Level 8.2 L Vital Signs Date Time Temp Pulse Resp B/P (MAP) Pulse Ox O2 Delivery O2 Flow Rate FiO2 10/18/18 06:00 98.2 70 17 125/65 (85) 96 10/16/18 05:26 Room Air I&O- Last 24 Hours up to 6 AM 10/18/18 06:00 Intake Total 840 ml Output Total 300 ml Balance 540 ml BENJAMIN DIAMOND DO Oct 18, 2018 08:50
--- NOTE | 2018-10-18 17:22 | DS.PDOC ---
Discharge Summary General Date of Admission Oct 16, 2018 at 05:23 Date of Discharge October 18, 2018 Primary Care Physician: JARRETT VANEGAS M.D. Discharge Summary PROCEDURES PERFORMED DURING STAY: None. ADMITTING DIAGNOSES: Bright red blood per rectum BPH History of TIA/CVA History of glaucoma. COPD, asthma. DISCHARGE DIAGNOSES: Bright red blood per rectum likely secondary to diverticular bleed BPH History of asbestosis History of TIA. COPD, asthma. Neuropathy COMPLICATIONS/CHIEF COMPLAINT: Gi Bleed. HISTORY OF PRESENT ILLNESS: The patient is an 83-year-old male, he has a si gnificant past medical history of benign prostatic hypertrophy (BPH), asbestosis as per chart, though he says he is not aware of that, transient ischemic attacks (TIAs) in the past, no overt CVA, on dual antiplatelet therapy with aspirin and Plavix, diverticulosis, gastroesophageal reflux disease (GERD), asthma, chronic obstructive pulmonary disease (COPD). He presents to the emergency room with two episodes of bright red blood per rectum. Initially, the patient states this was painless, however now he says he has some mild discomfort in the lower abdominal area. He denies any nausea or vomiting. He denies any chest pain, shortness of breath, fevers or chills. He denies any urinary symptoms. His last colonoscopy was done in 2014, which he states that he had polyps which were removed. His follow-up was 3-5 years later. He was actually scheduled to have a repeat colonoscopy next week with Dr. Mosquera. A CT shows diverticulosis, possible mild acute diverticulosis. He did have a mehul blood bowel movement while present in the ER which I was able to witness. Surgery, Dr. Diamond has been called who will see the patient in the a.m. HOSPITAL COURSE: Patient was admitted on the [facility] surgery was consulted to follow the patient was admitted. His H&Hs was trended which was stable throughout his stay. No blood transfusion was given. He does have a history of diverticulosis and it was recommended for him to follow-up with Dr. Stinson outpatient. His chronic medical problems dictations were continued while admitted. First history of TIA we held both his aspirin and Plavix on the day of discharge we advised him to continue with the aspirin and to hold the Plavix until he is followed up with GI and his PCP. Also recheck a CBC in 1 week with PCP. He was agreeable to all the plan stated him to him today. DISCHARGE MEDICATIONS: Please see below. ALLERGIES: Please see below. PHYSICAL EXAMINATION ON DISCHARGE: VITAL SIGNS: Please see below. GENERAL: Alert, comfortable, in no acute distress. Sitting up in his chair reading a newspaper HEENT: Atraumatic normocephalic CARDIOVASCULAR: Normal S1-S2 sounds regular rate and rhythm no audible murmurs rubs or gallops RESPIRATORY: Laterally clear to auscultate no audible Rales wheezing or rhonchi ABDOMINAL: Soft nontender positive bowel sounds in all 4 quadrants EXTREMITIES: No lower extremity edema or calf tenderness LABORATORY DATA: Please see below. IMAGING: CT abdomen and pelvis without contrast October 16, 2018 IMPRESSION: Extensive diverticulosis. Segmental thickening of the sigmoid colon with minimal adjacent stranding may represent mild acute diverticulitis. No evidence of abscess or perforation. PROGNOSIS: Fair ACTIVITY: As tolerated. DIET: Regular diet DISPOSITION: 01 Home, Self-Care. DISCHARGE INSTRUCTIONS: 1. f.u. with pcp in 7 -10 days(message left to call pt with an appointment). 2. F.u with GI as scheduled 10/19/18@3pm;please arrive at2:30pm for paperwork with Dr Mosquera([phone]) 3. Resume ASA because of history of CVA, hold Plavix until after follow with pcp and GI. 4. Recheck CBC with PCP in 7 days. 5. If symptoms return call pcp or return to the ER DISCHARGE CONDITION: Stable. TIME SPENT ON DISCHARGE: Greater than 35 minutes. Vital Signs/I&Os Vital Signs Date Time Temp Pulse Resp B/P (MAP) Pulse Ox O2 Delivery O2 Flow Rate FiO2 10/18/18 06:00 98.2 70 17 125/65 (85) 96 10/16/18 05:26 Room Air I&O- Last 24 Hours up to 6 AM 10/18/18 06:00 Intake Total 840 ml Output Total 300 ml Balance 540 ml Laboratory Data Labs 24H Laboratory Tests 2 10/17/18 20:20: Bedside Glucose (Misc Panel) 88 10/18/18 06:16: Nucleated Red Blood Cells % (auto) 0.0, Anion Gap 5L, Glomerular Filtration Rate > 60.0, Blood Urea Nitrogen 12, Creatinine 1.20, Sodium Level 140, Potassium Level 3.9, Chloride Level 107, Carbon Dioxide Level 28, Calcium Level 8.2L, Magnesium Level 2.0, C-Reactive Protein, Quantitative < 0.30 CBC/BMP Laboratory Tests 10/18/18 06:16 Red Blood Count 4.04 L, Mean Corpuscular Volume 87.6, Mean Corpuscular Hemoglobin 28.2, Mean Corpuscular Hemoglobin Concent 32.2, Red Cell Distribution Width 13.7, Calcium Level 8.2 L FSBS Laboratory Tests Test 10/17/18 20:20 Range/Units Bedside Glucose (Misc Panel) 88 83-110 MG/DL Discharge Medications Scheduled Albuterol/Ipratropium (Ipratropium [place]/Albut 0.5-2.5 (3) mg/3Ml) 1 Beth Beth, 1 BETH INH BID, (Reported) Aspirin (Aspir-81) 81 Mg Tab, 1 TAB PO DAILY for pain Bimatoprost (Lumigan) 50 Drop/2.5 Ml Beth, 1 DROP OU QHS, (Reported) Budesonide/Formoterol (Symbicort 80-4.5 Mcg/Act) 60 Puff/Inhaler Aers, 2 PUFF INH BID, (Reported) Dicyclomine HCl (Dicyclomine HCl) 10 Mg Cap, 10 MG PO DAILY, (Reported) Finasteride (Finasteride) 5 Mg Tab, 5 MG PO DAILY, (Reported) Fluticasone Propionate (Flonase Allergy Relief) 50 Mcg/Act Spr, 1 SPRAYS NA BID, (Reported) Gabapentin (Gabapentin) 100 Mg Cap, 100 MG PO DAILY, (Reported) Omeprazole (Omeprazole) 20 Mg Cap, 20 MG PO QHS, (Reported) Tamsulosin Hydrochloride (Flomax) 0.4 Mg Cap, 0.4 MG PO DAILY, (Reported) Allergies Coded Allergies: No Known Allergies (Unverified , 12/25/16) GME ATTESTATION GME ATTESTATION My faculty preceptor for this patient encounter was physically present during the encounter and was fully available. All aspects of the patient interview, examination, medical decision making process, and medical care plan development were reviewed and approved by the faculty preceptor. The faculty preceptor is aware and concurs with the plan as stated in the body of this note and will attest to such by his/her cosignature. GA BRO DO Oct 18, 2018 17:21
== END 2018-10-18 09:40 | disposition home or self-care (01) | DRG 379 ==
LOC: M ED 00:55 → M ED INP 05:23 → M MS5PR 06:54
PROVIDERS: ADMIT Internal Medicine; ATTEND Internal Medicine
DX: K57.33 Diverticulitis of large intestine without perforation or abscess with bleeding (principal); M85.811 Other specified disorders of bone density and structure, right shoulder; N40.0 Benign prostatic hyperplasia without lower urinary tract symptoms; K21.9 Gastro-esophageal reflux disease without esophagitis; H40.9 Unspecified glaucoma; J44.9 Chronic obstructive pulmonary disease, unspecified; Z86.73 Personal history of transient ischemic attack (TIA), and cerebral infarction without residual deficits; Z79.02 Long term (current) use of antithrombotics/antiplatelets; Z79.82 Long term (current) use of aspirin; Z79.899 Other long term (current) drug therapy; G62.9 Polyneuropathy, unspecified

== ENCOUNTER 2018-10-24 09:36 | Day surgery (SDC) | payer MEDICARE ==
[~2018-10-24] VITALS: Ht 172.7 cm; Wt 76.4 kg
[~2018-10-24 09:36] MED LIST changes: -ASPI1TAB PO; +ASPI81TA26 PO; +ASPI81TA85 PO; +HYDR-3715 PO; -NORCOTAB PO; +NS 1,000 ML IV ONE
[2018-10-24] MEDS ORDERED: PROPOFOL 200 MG/20 ML VIAL As Ordered ONE (12:33)
--- NOTE | 2018-10-24 12:58 | ROOR ---
Patient Name: Chan Miranda Procedure Date: 10/24/2018 12:35 PM Date of : 1935 Age: 83 Room: [facility] Gender: Male Note Status: Finalized Procedure: Colonoscopy Indications: Hematochezia, Rectal bleeding, Acute post hemorrhagic anemia Providers: Oni MOSQUERA MD Referring MD: Dk Yu MD, Fabiola Fernando MD Requesting Provider: Medicines: Monitored Anesthesia Care Complications: No immediate complications. Procedure: Pre-Anesthesia Assessment: - The heart rate, respiratory rate, oxygen saturations, blood pressure, adequacy of pulmonary ventilation, and response to care were monitored throughout the procedure. The Colonoscope was introduced through the anus and advanced to the terminal ileum, with identification of the appendiceal orifice and IC valve. The colonoscopy was performed without difficulty. The patient tolerated the procedure well. The quality of the bowel preparation was good. Findings: The perianal and digital rectal examinations were normal. A 4 mm polyp was found in the ascending colon. The polyp was sessile. The polyp was removed with a cold snare. Resection and retrieval were complete. Multiple small and large-mouthed diverticula were found in the sigmoid colon. There was no evidence of diverticular bleeding. Internal hemorrhoids were found during retroflexion. The hemorrhoids were medium-sized. The exam was otherwise without abnormality on direct and retroflexion views. Impression: - One 4 mm polyp in the ascending colon, removed with a cold snare. Resected and retrieved. - Severe diverticulosis in the sigmoid colon. There was no evidence of diverticular bleeding. - Internal hemorrhoids. - The examination was otherwise normal on direct and retroflexion views. Recommendation: - Repeat colonoscopy in 5 years for surveillance. - Resume Plavix (clopidogrel) at prior dose today. - Return to primary care physician as previously scheduled. Oni Mosquera MD Oni MOSQUERA MD 10/24/2018 12:58:18 PM Electronically signed by Oni MOSQUERA MD Number of Addenda: 0 Note Initiated On: 10/24/2018 12:35 PM Estimated Blood Loss: Estimated blood loss: none.
[2018-10-24 13:20] VITALS: BP 140/80
== END 2018-10-24 13:46 | disposition home or self-care (01) ==
LOC: M OPP 09:36
PROVIDERS: ATTEND Internal Medicine Gastroenterology
DX: D12.2 Benign neoplasm of ascending colon (principal); K57.30 Diverticulosis of large intestine without perforation or abscess without bleeding; K64.8 Other hemorrhoids; K92.1 Melena; K62.5 Hemorrhage of anus and rectum; D62 Acute posthemorrhagic anemia

== ENCOUNTER → 2018-10-26 | Outpatient (REF) | payer MEDICARE ==
[~2018-10-26] MED LIST changes: -NS 1,000 ML IV ONE
[2018-10-26 17:58] LABS: PERCENT SATURATION 7.5 % (19.7-50.0)
== END ==
LOC: M LAB REF 16:51
PROVIDERS: ATTEND Family Medicine
DX: D64.9 Anemia, unspecified (principal)

== ENCOUNTER → 2018-11-07 | Outpatient (REF) | payer MEDICARE ==
[2018-11-07 13:47] LABS: APPEARANCE, URINE CLEAR (CLEAR); BACTERIA, URINE AUTO NEGATIVE (NEGATIVE); BILIRUBIN, URINE AUTO NEGATIVE (NEGATIVE); BLOOD, URINE BLOOD NEGATIVE (NEGATIVE); COLOR, URINE YELLOW (YELLOW); GLUCOSE, URINE (UA) AUTO NEGATIVE (NEGATIVE); KETONE, URINE AUTO NEGATIVE (NEGATIVE); LEUKOCYTE ESTERASE, URINE AUTO NEGATIVE (NEGATIVE); MUCUS, URINE SMALL (NEGATIVE); NITRITE, URINE AUTO NEGATIVE (NEGATIVE); PROTEIN, URINE AUTO NEGATIVE (NEGATIVE); RBC, URINE AUTO 0 /HPF (0-3); SQUAMOUS EPITHELIAL CELL UR AU 0 /HPF (0-6); UROBILINOGEN, URINE AUTO 0.2 mg/dL (0.0-2.0); WBC, URINE AUTO 0 /HPF (0-3)
== END ==
LOC: M SMT 12:42
PROVIDERS: ATTEND Nurse Practitioner Women's Health
DX: R30.0 Dysuria (principal)
CPT/HCPCS: 81001; 87088; 87186; G0463

== ENCOUNTER → 2018-12-19 | Outpatient (CLI) | payer MEDICARE ==
--- NOTE | 2018-12-19 11:19 | REP ---
REASON FOR EXAM: Left-sided pain. Comparison examination is 09/24/2017. Postoperative changes status quo. Complete opacification of the left hemithorax due to pneumonectomy. There has been no evidence of an acute left rib change compared to the prior exam. IMPRESSION: No significant change from the prior exam. Electronically Signed by Ruben Fitch DO 12/19/2018 12:57 P
--- NOTE | 2018-12-19 11:20 | REP ---
REASON: Previous left side pneumonectomy. COMPARISON: Two view examination of 05/10/2018 and portable examination of 09/21/2018. Once again, there is complete opacification of the left hemithorax due to previous pneumonectomy. There are chronic left rib changes status quo. The right lung field is unchanged showing no evidence of an acute patchy parenchymal opacity or pleural effusion. There is interstitial fibrotic change status quo. There is no change in the osseous structures. There is a stable grade 3 lower thoracic vertebral body compression deformity. IMPRESSION: No change from the prior exam. No evidence of acute disease. Electronically Signed by Ruben Fitch DO 12/19/2018 12:57 P
== END ==
LOC: M SMT 09:25
PROVIDERS: ATTEND Thoracic Surgery (Cardiothoracic Vascular Surgery)
DX: S22.42XD Multiple fractures of ribs, left side, subsequent encounter for fracture with routine healing (principal); X58.XXXD Exposure to other specified factors, subsequent encounter; Z87.828 Personal history of other (healed) physical injury and trauma

== ENCOUNTER → 2018-12-23 | Outpatient (REF) | payer MEDICARE ==
[2018-12-23 14:01] LABS: TOTAL PROTEIN 7.2 GM/DL (6.4-8.2)
[2018-12-27 09:46] LABS: ALBUMIN 3.84 GM/DL (3.29-5.55); ALBUMIN % 53.3 % (55.8-66.1); ALPHA-1-GLOBULIN % 4.8 % (2.9-4.9); ALPHA-1-GLOBULINS 0.35 GM/DL (0.17-0.41); ALPHA-2-GLOBULINS 0.67 GM/DL (0.42-0.99); ALPHA-2-GLOBULINS % 9.3 % (7.1-11.8); BETA-1-GLOBULINS 0.51 GM/DL (0.28-0.60); BETA-1-GLOBULINS % 7.1 % (4.7-7.2); BETA-2-GLOBULINS 0.57 GM/DL (0.19-0.55); BETA-2-GLOBULINS % 7.9 % (3.2-6.5); GAMMA GLOBULIN % 17.6 % (11.1-18.8); GAMMA GLOBULINS 1.27 GM/DL (0.65-1.58)
== END ==
LOC: M LAB REF 13:00
PROVIDERS: ATTEND Family Medicine
DX: D64.9 Anemia, unspecified (principal)

== ENCOUNTER → 2019-01-30 | Outpatient (REF) | payer MEDICARE ==
[~2019-01-30] MED LIST changes: +AMOX875T; +CLOP75TA2; +FERR325T18; +MONT10TA2; +OMEP1CAP73 PO; -OMEP20CA3 PO; +magnesium PO
[2019-01-30 19:34] LABS: PERCENT SATURATION 50.2 % (19.7-50.0)
== END ==
LOC: M LAB REF 17:13
PROVIDERS: ATTEND Family Medicine
DX: D64.9 Anemia, unspecified (principal)

== ENCOUNTER 2019-02-01 07:04 | Day surgery (SDC) | payer MEDICARE ==
[~2019-02-01] VITALS: Ht 172.7 cm; Wt 76.6 kg
[~2019-02-01 07:04] MED LIST changes: +ACETAMINOPHEN 325 MG TAB PO PRN; -AMOX875T; +BSS with VANC/TOB/EPI for EYE CASES IR ONE; +CEFUROXIME 1MG/0.1ML INTRACAMERAL INJ As Ordered ONE; -CLOP75TA2; +CYCLOPENTOLATE 2% OPHTH SOLN 2ML BTL OD ONE; -FERR325T18; +HEALON DUET PRO(HEALON 10MG/ML 0.55ML & HEALON ENDOCOAT 30MG/ML 0.85ML) As Ordered ONE; +LIDOCAINE 1% SDV 5 ML VIAL As Ordered ONE; +LIDOCAINE 3.5 % 1ML OPHTH TOPICAL GEL OU ONE; -MONT10TA2; +OFLOXACIN 0.3 % (OCUFLOX) OPTH SOL 5ML OD ONE; +PHENYLEPHRINE 2.5% OPHTH SOL 2ML OD ONE; +PHENYLEPHRINE HCL 10 % OPHTH. SOL 5ML OD PRN; +POVIDONE-IODINE 5% OPHTH PREP SOL 30ML As Ordered ONE; +PROPARACAINE 0.5% OPHTH SOL 15ML OD PRN; +TROPICAMIDE 1% OPHTH SOLN 2ML OD ONE; -magnesium PO
[2019-02-01] MEDS ORDERED: MIDAZOLAM INJ 2 MG/2 ML VIAL (J2250) As Ordered ONE (07:17)
[2019-02-01] MEDS ORDERED: LIDOCAINE 2% W/EPIN INJ 20ML **PRES FREE As Ordered ONE (08:10)
[2019-02-01 08:45] VITALS: BP 117/66
[2019-02-01] MEDS ORDERED: ONDANSETRON 4MG/2ML VIAL (J2405) IV PRN (08:45)
[2019-02-01] MEDS ORDERED: KETOROLAC 0.5% OPHTH SOLN OD ONE (08:45)
[2019-02-01] MEDS ORDERED: TRIMETHOBENZAMIDE 300 MG CAP PO PRN (08:45)
[2019-02-01] MEDS ORDERED: AcetaZOLAMIDE 500 MG ER CAP PO ONE (08:45)
--- NOTE | 2019-02-02 21:09 | RO ---
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 PROCEDURE: Phacoemulsification with intraocular lens implantation right eye with Optiwave Refractive Analysis (ORA). The intraocular lens power chosen was AU00T0, 18 diopter along with endocyclophotocoagulation and placement of iStent inject, serial number [id number]. SURGEON: Dr. Brent Recinos TIGHT BARREL INSPECTOR: None. ANESTHESIA: COMPLICATIONS: None. DESCRIPTION OF PROCEDURE: The patient was brought to the operating room, laid in supine position. The eye was prepped and draped in a sterile fashion for ophthalmic surgery, following which a lid speculum was placed. Sideport incision was made and EndoCoat was injected into the anterior chamber. Both the temporal corneal incision and sideport incisions were made following which capsulorrhexis was done followed by hydrodissection with balanced salt solution. Phacoemulsification was then done in a [id number] method within the capsular bag followed by the aspiration of cortical material using irrigation and aspiration cannula. ORA calculations were then taken and reviewed after the intraocular pressure was checked, following which the intraocular lens AU00T0, 18 diopters was placed in the capsular bag. Healon was then placed in the ciliary sulcus to visualize the ciliary processes on the video screen, with the help of the video probe, endocyclophotocoagulation was done 280 degrees at 0.25 milliwatts. Good results were noted by shrinking of the ciliary processes on the video screen. Healon was then placed into the anterior chamber to visualize the trabecular meshwork under high magnification with the patient's head turned away from the surgeon and microscope towards the surgeon. IStent inject were placed three clock hours apart nasally and good blood reflux noted and good position. Excess viscoelastic was then aspirated, the wound was hydrated, cefuroxime was given, lid speculum was removed. The patient returned to the recovery room in stable condition. Edited 02/02/2019 [facility]
== END 2019-02-01 09:13 | disposition home or self-care (01) ==
LOC: M SDC 07:04
PROVIDERS: ATTEND Ophthalmology
DX: H25.9 Unspecified age-related cataract (principal); H40.811 Glaucoma with increased episcleral venous pressure, right eye; K21.9 Gastro-esophageal reflux disease without esophagitis; J44.9 Chronic obstructive pulmonary disease, unspecified; Z86.73 Personal history of transient ischemic attack (TIA), and cerebral infarction without residual deficits; Z79.02 Long term (current) use of antithrombotics/antiplatelets; Z79.899 Other long term (current) drug therapy
CPT/HCPCS: 66183; 66711; 66984; 92015; C1783; J2250; V2632

== ENCOUNTER → 2019-02-15 | Outpatient (CLI) | payer MEDICARE ==
[~2019-02-15] MED LIST changes: -ACETAMINOPHEN 325 MG TAB PO PRN; -BSS with VANC/TOB/EPI for EYE CASES IR ONE; -CEFUROXIME 1MG/0.1ML INTRACAMERAL INJ As Ordered ONE; -CYCLOPENTOLATE 2% OPHTH SOLN 2ML BTL OD ONE; -HEALON DUET PRO(HEALON 10MG/ML 0.55ML & HEALON ENDOCOAT 30MG/ML 0.85ML) As Ordered ONE; -LIDOCAINE 1% SDV 5 ML VIAL As Ordered ONE; -LIDOCAINE 3.5 % 1ML OPHTH TOPICAL GEL OU ONE; -OFLOXACIN 0.3 % (OCUFLOX) OPTH SOL 5ML OD ONE; -OMEP1CAP73 PO; +OMEP20CA4 PO; -PHENYLEPHRINE 2.5% OPHTH SOL 2ML OD ONE; -PHENYLEPHRINE HCL 10 % OPHTH. SOL 5ML OD PRN; -POVIDONE-IODINE 5% OPHTH PREP SOL 30ML As Ordered ONE; -PROPARACAINE 0.5% OPHTH SOL 15ML OD PRN; -TROPICAMIDE 1% OPHTH SOLN 2ML OD ONE
[2019-02-15 20:14] LABS: BASO % 0.7 % (0.0-1.0); EOS # 0.2 10^3/uL (0.0-0.50); EOS % 3.1 % (0.0-3.0); HEMATOCRIT 45.1 % (42.0-52.0); HEMOGLOBIN 14.6 g/dl (13.5-17.5); LYMPH # 1.3 10^3/uL (1.5-4.5); MEAN CORPUSCULAR HEMOGLOBIN 28.5 pg (27.0-33.0); MEAN CORPUSCULAR HGB CONC 32.4 g/dl (32.0-36.5); MEAN CORPUSCULAR VOLUME 87.9 fl (80.0-96.0); MONO # 0.5 10^3/uL (0.0-0.8); MONO % 8.4 % (0.0-5.0); NEUTROPHILS # 3.7 10^3/uL (1.8-7.7); NEUTROPHILS % 64.6 % (36.0-66.0); PLATELET COUNT, AUTOMATED 226 10^3/uL (150-450); RED BLOOD COUNT 5.13 10^6/uL (4.30-6.10); WHITE BLOOD COUNT 5.7 10^3/uL (4.0-10.0)
[2019-02-15 20:31] LABS: BLOOD UREA NITROGEN 17 MG/DL (7-18); CARBON DIOXIDE LEVEL 28 MEQ/L (21-32); CHLORIDE LEVEL 108 MEQ/L (98-107); CREATININE FOR GFR 1.17 MG/DL (0.70-1.30); GLOMERULAR FILTRATION RATE > 60.0 (>35); GLUCOSE, FASTING 114 MG/DL (70-100); SODIUM LEVEL 142 MEQ/L (136-145)
== END ==
LOC: M WUC 15:53
PROVIDERS: ATTEND Internal Medicine Cardiovascular Disease
DX: R94.39 Abnormal result of other cardiovascular function study (principal); R07.9 Chest pain, unspecified

== ENCOUNTER → 2019-03-02 | Outpatient (CLI) | payer MEDICARE ==
--- NOTE | 2019-03-02 16:46 | REP ---
HISTORY: Right-sided pain after trauma. COMPARISON: 12/19/2018 The patient is status post left pneumonectomy. There is complete opacity of the left hemithorax secondary to that procedure. Chronic change is seen involving the right lung, status quo. No definite acute patchy parenchymal opacities or pleural effusions have developed. There is no change in the osseous structures. IMPRESSION: Stable appearing chronic changes. Electronically Signed by Ruben Fitch DO 03/02/2019 06:00 P
--- NOTE | 2019-03-02 17:35 | REP ---
REASON: Rib pain. The bones are demineralized. Rib fracture could be obscured. There is a fracture involving the right 9th rib anteriorly. Other fractures could be obscured. IMPRESSION:Right 9th rib fracture anteriorly with limitations as described above. Electronically Signed by Ruben Fitch DO 03/02/2019 06:04 P
== END ==
LOC: M RAD 14:39
PROVIDERS: ATTEND Nurse Practitioner Adult Health
DX: S22.31XA Fracture of one rib, right side, initial encounter for closed fracture (principal); X58.XXXA Exposure to other specified factors, initial encounter; Y92.89 Other specified places as the place of occurrence of the external cause; Z90.2 Acquired absence of lung [part of]

== ENCOUNTER 2019-03-18 12:02 | Emergency (ER) | payer MEDICARE ==
[~2019-03-18] VITALS: Ht 172.7 cm; Wt 77.3 kg
[2019-03-18 13:23] LABS: HEMATOCRIT 44.2 % (42.0-52.0); HEMOGLOBIN 14.8 g/dl (13.5-17.5); MEAN CORPUSCULAR HEMOGLOBIN 29.4 pg (27.0-33.0); MEAN CORPUSCULAR HGB CONC 33.5 g/dl (32.0-36.5); MEAN CORPUSCULAR VOLUME 87.9 fl (80.0-96.0); PLATELET COUNT, AUTOMATED 223 10^3/uL (150-450); RED BLOOD COUNT 5.03 10^6/uL (4.30-6.10)
[2019-03-18] MEDS ORDERED: magnesium PO (13:23)
[2019-03-18] MEDS ORDERED: CLOP75TA2 (13:23)
[2019-03-18] MEDS ORDERED: FERR325T18 (13:23)
--- NOTE | 2019-03-18 13:48 | REP ---
Clinical: Fever. Technique: PA and lateral. Comparison: 03/02/2019. Findings: Complete opacification of the left hemithorax with associated pleuroparenchymal changes remain stable. The right hemithorax demonstrates chronic interstitial changes. Impression: Chronic stable changes. No obvious acute process appreciated. Electronically Signed by Mehul Waldrop MD 03/18/2019 01:40 P
[2019-03-18 13:58] LABS: BLOOD UREA NITROGEN 18 MG/DL (7-18); CARBON DIOXIDE LEVEL 28 MEQ/L (21-32); CHLORIDE LEVEL 103 MEQ/L (98-107); CK-MB VALUE MASS 6.8 NG/ML (<3.6); CPK CREATINE PHOSPHOKINASE 222 U/L (39-308); CREATININE FOR GFR 1.06 MG/DL (0.70-1.30); GLOMERULAR FILTRATION RATE > 60.0 (>35); GLUCOSE, FASTING 91 MG/DL (70-100); MB/CK RELATIVE INDEX 3.06 (< OR =4); POTASSIUM SERUM 4.5 MEQ/L (3.5-5.1); SODIUM LEVEL 138 MEQ/L (136-145); TROPONIN I < 0.02 NG/ML (< 0.10)
[2019-03-18 14:12] LABS: INR 0.95; PROTHROMBIN TIME 12.4 SECONDS (11.8-14.0)
--- NOTE | 2019-03-18 15:07 | REP ---
Clinical: Renal colic. Technique: Axial noncontrast images from the lung bases to the pubic symphysis with coronal and sagittal re-formations. Comparison: 10/16/2018. Findings: Chronic stable pleuroparenchymal changes involving the visualized left lung base again noted. Liver, spleen, pancreas, and bilateral adrenal glands are normal. Cholelithiasis noted without acute cholecystitis. Right kidney includes 2 mm nonobstructing intrarenal calculus without acute perinephric stranding, hydroureteronephrosis or obstructing ureteral calculus. Left kidney includes multiple small peripelvic cysts up to 1.2 cm and no evidence for hydroureteronephrosis, nephrolithiasis or obstructing ureteral calculus. The enteric system demonstrates diffuse colonic diverticulosis without obstruction or acute inflammatory process. The pelvis demonstrates normal bladder and mildly prominent prostate gland measuring approximately 3.8 cm maximal diameter. No ascites. No free air. No adenopathy. Atherosclerotic changes of the aorta and vasculature without aneurysm. Musculoskeletal structures demonstrate degenerative changes. Impression: 1. No acute abdominopelvic pathology appreciated. 2. 2 mm nonobstructing right renal calculus and few left renal peripelvic cysts without further acute urinary tract findings. 3. Diverticulosis without acute diverticulitis. 4. Mildly prominent prostate gland. 5. No ascites, focal inflammatory stranding, or adenopathy. No free air. Electronically Signed by Mehul Waldrop MD 03/18/2019 02:59 P
[2019-03-18 16:20] LABS: CPK CREATINE PHOSPHOKINASE 191 U/L (39-308); MB/CK RELATIVE INDEX 3.14 (< OR =4); TROPONIN I < 0.02 NG/ML (< 0.10)
[2019-03-18 16:45] VITALS: BP 121/74
--- NOTE | 2019-03-19 07:14 | ECGEPIP ---
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
--- NOTE | 2019-03-19 07:16 | ECGEPIP ---
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
== END 2019-03-18 17:02 | disposition home or self-care (01) ==
LOC: M ED 12:02
DX: R35.0 Frequency of micturition (principal); G89.29 Other chronic pain; R07.89 Other chest pain; N40.0 Benign prostatic hyperplasia without lower urinary tract symptoms; I44.7 Left bundle-branch block, unspecified; I10 Essential (primary) hypertension; J44.9 Chronic obstructive pulmonary disease, unspecified; I25.10 Atherosclerotic heart disease of native coronary artery without angina pectoris; Z79.899 Other long term (current) drug therapy; Z79.82 Long term (current) use of aspirin

== ENCOUNTER → 2019-05-10 | Outpatient (CLI) | payer MEDICARE ==
[~2019-05-10] MED LIST changes: +CLOP75TA2; +FERR325T18; +magnesium PO
--- NOTE | 2019-05-16 14:48 | DEXA ---
AP SPINE L1 - L4 1.353 1.3 1.7 LT FEMUR TOTAL 0.946 -0.5 0.2 LT NECK 0.871 -1.2 0.1 RT FEMUR TOTAL 0.919 -0.7 0.0 RT NECK 0.780 -1.9 -0.6 TOTAL BODY TOTAL OTHER COMMENTS: Normal bone densitometry of the spine. There is low bone density of the hips. FOLLOW-UP: Recommendation for the next bone density exam: 2 years. JACKY
== END ==
LOC: M WHC 14:32
PROVIDERS: ATTEND Family Medicine
DX: M85.80 Other specified disorders of bone density and structure, unspecified site (principal); M81.0 Age-related osteoporosis without current pathological fracture

== ENCOUNTER 2019-08-02 09:31 | Emergency (ER) | payer MEDICARE ==
[~2019-08-02] VITALS: Ht 172.7 cm; Wt 79.7 kg
[~2019-08-02 09:31] MED LIST changes: +OMEP1CAP73 PO; -OMEP20CA4 PO
[2019-08-02 09:32] VITALS: BP 158/81
[2019-08-02] MEDS ORDERED: AMOX875T (09:41)
[2019-08-02] MEDS ORDERED: MONT10TA2 (09:41)
== END 2019-08-02 10:02 | disposition home or self-care (01) ==
LOC: M ED 09:31
DX: S00.81XA Abrasion of other part of head, initial encounter (principal); W00.0XXA Fall on same level due to ice and snow, initial encounter; Y92.018 Other place in single-family (private) house as the place of occurrence of the external cause; J44.9 Chronic obstructive pulmonary disease, unspecified; K21.9 Gastro-esophageal reflux disease without esophagitis; N40.0 Benign prostatic hyperplasia without lower urinary tract symptoms; Z79.899 Other long term (current) drug therapy; Z79.82 Long term (current) use of aspirin; Z79.01 Long term (current) use of anticoagulants

== ENCOUNTER → 2019-10-01 | Outpatient (CLI) | payer MEDICARE ==
[~2019-10-01] MED LIST changes: +AMOX875T; +MONT10TA4
--- NOTE | 2019-10-01 15:46 | REP ---
REASON: Lateral pain after trauma. PRIORS: None. The bones are demineralized. Plantar and retrocalcaneal heel spurs are present. Degenerative changes are seen throughout the foot and ankle. There is soft tissue swelling at the level of the 5th metatarsophalangeal joint, which is nonspecific. IMPRESSION: Chronic changes, as described above. Soft tissue swelling, likely secondary to soft tissue edema. There is no evidence of a fracture. Unreviewed
== END ==
LOC: M WUC 10:18
PROVIDERS: ATTEND Physician Assistant
DX: M79.671 Pain in right foot (principal)

== ENCOUNTER → 2019-10-04 | Outpatient (CLI) | payer MEDICARE ==
[~2019-10-04] MED LIST changes: +ISOVUE-370 76% 100ML VIAL (Q9967) As Ordered ONE
--- NOTE | 2019-10-04 14:23 | REP ---
CT CHEST WITH IV CONTRAST: HISTORY: Asthma. Comparison chest CT study March 30, 2019. CT CONTRAST DOSE: 75 mL of intravenous Isovue 370. CT FINDINGS: Preliminary digital environmental services assistant radiograph demonstrates an opacified left hemithorax in this patient who is status post left pneumonectomy. Axial images demonstrate this as well with extensive complex pleural thickening and fluid collection throughout the left hemithorax laterally unchanged from comparison CT study March 30, 2019. This contains some calcifications and a thick rind of visceral and parietal pleural thickening. There is good opacification of the pulmonary arterial tree. No filling defect is seen to suggest pulmonary embolism. There is no evidence of thoracic aortic aneurysm or dissection. Some vascular calcification is observed. There are some benign subpleural nodules in the right along the minor fissure. There is calcific pleural plaquing on the right again noted. There is no pulmonary mass or significant pulmonary nodule. In the abdomen, there is a densely calcified gallstone in the neck of the gallbladder. This gallstone measures 1.5 cm in diameter. There is an intrarenal calculus 4 mm in diameter in the upper pole of the right kidney. There are parapelvic and cortical cysts on the left. Four-chamber cardiac enlargement is observed. IMPRESSION: Status post left pneumonectomy with chronic pleuroparenchymal changes on the left and pleural plaquing on the right. Cardiomegaly. Cholelithiasis and intrarenal nephrolithiasis. No acute infiltrate in the remaining right lung. Electronically Signed by Garo Alvarez MD 10/04/2019 03:24 P
== END ==
LOC: M RAD 13:22
PROVIDERS: ATTEND Internal Medicine Pulmonary Disease
DX: J45.909 Unspecified asthma, uncomplicated (principal)
CPT/HCPCS: 71260; Q9967

== ENCOUNTER → 2020-06-04 | Outpatient (REF) | payer MEDICARE ==
[~2020-06-04] MED LIST changes: +AMOX875T PO; -ASPI81TA85 PO; +ASPI81TA86 PO; +BENZ-18 PO; -CLOP75TA2; +CLOP75TA2 PO; +FLON1SPR NARES; -IPRA0.00 INH; +IPRA0.00 NEB; -ISOVUE-370 76% 100ML VIAL (Q9967) As Ordered ONE; +LEVO750T13 PO
== END ==
LOC: M WUC 19:23
PROVIDERS: ATTEND Physician Assistant
DX: J06.9 Acute upper respiratory infection, unspecified (principal); R50.9 Fever, unspecified; Z20.828 Contact with and (suspected) exposure to other viral communicable diseases

== ENCOUNTER 2020-06-07 10:08 | Inpatient (IN) | payer MEDICARE ==
[~2020-06-07] VITALS: Ht 172.7 cm; Wt 73.0 kg
[~2020-06-07 10:08] MED LIST changes: -AMOX875T PO; -BENZ-18 PO; -LEVO750T13 PO
--- NOTE | 2020-06-07 10:54 | REP ---
INDICATION: SOB COMPARISON: 03/06/2020. TECHNIQUE: PA/Lateral FINDINGS: Lungs: Once again there is complete opacification of the left hemithorax as seen on prior studies. Surgical clips are seen in the region of the left hilum. New dense infiltrates are seen in the right mid and lower lung zones. Heart: No gross cardiomegaly. Mediastinum: Mediastinal silhouette unremarkable. Pleural angles: No right effusion.. Bones and soft tissues: There are degenerative changes of the spine. IMPRESSION: Dense right upper and lower lobe infiltrates. <Electronically signed by Carlos Wells > 06/07/20 1053
[2020-06-07 11:41] LABS: BASO % 0.2 % (0.0-1.0); EOS % 0.2 % (0.0-3.0); HEMATOCRIT 43.1 % (42.0-52.0); HEMOGLOBIN 14.6 g/dl (13.5-17.5); LYMPH # 0.8 10^3/uL (1.5-5.0); LYMPH % 15.4 % (24.0-44.0); MEAN CORPUSCULAR HEMOGLOBIN 30.6 pg (27.0-33.0); MEAN CORPUSCULAR HGB CONC 33.9 g/dl (32.0-36.5); MEAN CORPUSCULAR VOLUME 90.4 fl (80.0-96.0); MONO # 0.5 10^3/uL (0.0-0.8); MONO % 9.4 % (0.0-5.0); NEUTROPHILS # 3.6 10^3/uL (1.5-8.5); NEUTROPHILS % 74.4 % (36.0-66.0); PLATELET COUNT, AUTOMATED 200 10^3/uL (150-450); RED BLOOD COUNT 4.77 10^6/uL (4.30-6.10); WHITE BLOOD COUNT 4.9 10^3/uL (4.0-10.0)
[2020-06-07 12:04] LABS: ALBUMIN 2.7 GM/DL (3.2-5.2); ALT/SGPT 42 U/L (12-78); BILIRUBIN,DIRECT 0.3 MG/DL (0.0-0.2); BILIRUBIN,TOTAL 0.6 MG/DL (0.2-1.0); BLOOD UREA NITROGEN 12 MG/DL (7-18); CALCIUM LEVEL 8.3 MG/DL (8.8-10.2); CARBON DIOXIDE LEVEL 27 MEQ/L (21-32); CHLORIDE LEVEL 100 MEQ/L (98-107); CK-MB VALUE MASS 3.4 NG/ML (<3.6); CPK CREATINE PHOSPHOKINASE 150 U/L (39-308); GLOMERULAR FILTRATION RATE > 60.0 (>35); GLUCOSE, FASTING 105 MG/DL (70-100); MB/CK RELATIVE INDEX 2.27 (< OR =4); NT-PRO BNP 5269 PG/ML (<450); POTASSIUM SERUM 3.8 MEQ/L (3.5-5.1); SODIUM LEVEL 131 MEQ/L (136-145); TOTAL PROTEIN 6.5 GM/DL (6.4-8.2); TROPONIN I 0.05 NG/ML (< 0.10)
[2020-06-07] MEDS ORDERED: AMOX875T PO (12:49)
[2020-06-07] MEDS ORDERED: ASPI81TA26 PO (12:49)
[2020-06-07] MEDS ORDERED: FINA5TAB2 PO (12:53)
[2020-06-07] MEDS ORDERED: ACETAMINOPHEN TAB 650MG DOSE (2X325MG) PO PRN (13:45)
[2020-06-07] MEDS ORDERED: PIPERACILLIN/TAZOBACTAM SOD 3.375 GM in D5W MINI-BAG PLUS 50 ML IV ONE (14:45)
[2020-06-07] MEDS: ASPIRIN 81 MG ENTERIC TAB PO SCH (15:16)
[2020-06-07] MEDS: IPRATROPIUM 0.5MG/ALBUTEROL 2.5MG INH SOL UD 3ML (DUONEB) NEB SCH ×3 (15:16→23:28)
[2020-06-07] MEDS: ENOXAPARIN 30MG/0.3ML SYRINGE (J1650 PER 10MG) SC SCH (15:17)
[2020-06-07] MEDS: FINASTERIDE 5 MG TAB PO SCH (15:17)
[2020-06-07] MEDS: TAMSULOSIN 0.4 MG CAP PO SCH (15:17)
[2020-06-07] MEDS: CLOPIDOGREL 75 MG TAB PO SCH (15:17)
[2020-06-07 17:25] VITALS: BP 145/87
--- NOTE | 2020-06-07 18:38 | HPEPDOC ---
General Date of Admission Jun 07, 2020 at 13:31 Date of Service: Jun 07, 2020 Chief Complaint The patient is a 85-year-old male admitted with a reason for visit of Pneumonia. Source: Patient History of Present Illness 85 year old male with H/O COPD, Left Pneumonectomy, has been having fever, chills, cough and nasal congestion for the past 1 week. He had gone to Urgent care 4 days ago and was diagnosed with Viral infection/pneumonia, COVID and FLu were negative. He was given Augmentin, tylenol. He has been taking the antibiotics as prescribed but has not felt any better. He starting feeling SOB which he felt was increasing so that walking around the house was making him winded, he continued to have low grade fever 99 to 100 the t max was 102 one day. He was having wheezing and chest tightness. His was feeling more fatigued and weak with poor appetite so came to the ED for evaluation. COVID and resp panel today was negative, CXR showed right sided pneumonia. CXR Showed Dense right upper and lower lobe infiltrates. Patient was found to having ronchi and wheezing also and his ProBNP was also elevated. Patient was admitted for pneumonia and COPD exacerbation. Home Medications Scheduled Amoxicillin (Amoxicillin) 875 Mg Tablet, 875 MG PO BID, (Reported) Aspirin (Aspirin EC) 81 Mg Tablet.dr, 81 MG PO DAILY, (Reported) Bimatoprost (Lumigan) 50 Drop/2.5 Ml Marta, 1 DROP OU QHS, (Reported) Budesonide/Formoterol (Symbicort 80-4.5 Mcg Inhaler) 60 Puff/Inhaler Aers, 2 PUFF INH BID, (Reported) Clopidogrel Bisulfate (Clopidogrel) 75 Mg Tablet, 75 MG PO DAILY, (Reported) Finasteride (Finasteride) 5 Mg Tablet, 5 MG PO DAILY, (Reported) Ipratropium/Albuterol Sulfate (Iprat-Albut 0.5-3(2.5) mg/3 ml) 1 Marta Marta, 1 VIAL NEB TID, (Reported) Omeprazole (Omeprazole) 20 Mg Cap, 20 MG PO QHS, (Reported) Tamsulosin HCl (Flomax) 0.4 Mg Cap, 0.4 MG PO DAILY, (Reported) Scheduled PRN Fluticasone Propionate (Flonase Allergy Relief) 50 Mcg/Act Spr, 1 SPRAYS NARES BID PRN for CONGESTION, (Reported) Allergies Coded Allergies: No Known Allergies (Unverified , 12/25/16) Past Medical History Medical History 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 hemorrhoid surgery SINUS SURGERY COLONOSCOPY CYSTO WITH LEFT STENT REMOVAL 05/17/2018 TUMOR IN L LUNG REMOVED 2017 with left pneumonectomy. Family History Significant Family History: Diabetes FATHER: 66 YRS, COPD, EMPHYSEMA MOTHER: 82 YRS, OLD AGE SON IS FROM CANCER in 2014, Had DM and renal failure, developed cancer in pancreas 8 months after combined kidney and pancreas transplant. Social History * Smoker: non-smoker Alcohol: rarely Drugs: denies A-FIB/CHADSVASC A-FIB History Current/History of A-Fib/PAF?: No Review of Systems Constitutional: Reports: Chills, Fever, Fatigue Eyes: Denies: Pain, Vision change ENT: Denies: Head Aches, Ear Pain, Dysphagia Skin: Denies: Rash, Lesions, Breakdown Pulmonary: Reports: Dyspnea, Cough Cardiovascular: Denies: Chest Pain, Palpitations, Orthopnea, Paroxysmal Noc. Dyspnea, Lt Headedness Gastrointestinal: Denies: Nausea, Vomiting, Abdominal Pain, Diarrhea Genitourinary: Denies: Dysuria, Frequency, Incontinence, Retention Musculoskeletal: Denies: Neck Pain, Back Pain, Joint Pain, Muscle Pain, Spasms Physical Examination General Exam: Positive: Alert, Cooperative, No Acute Distress Eye Exam: Positive: PERRLA, Conjunctiva & lids normal, EOMI; Negative: Sclera icteric ENT Exam: Positive: Atraumatic, Mucous membr. moist/pink, Pharynx Normal Chest Exam: Positive: Rhonchi, Wheezing, Diminished (on the left side ) Heart Exam: Positive: Rate Normal, Regular Rhythm, Normal S1, Normal S2; Negative: Murmurs, Rubs Abdomen Exam: Positive: Normal bowel sounds, Soft; Negative: Tenderness, Hepatospenomegaly Extremity Exam: Positive: Edema (on the right leg with varicose veins.), Normal pulses; Negative: Clubbing, Cyanosis Skin Exam: Positive: Nl turgor and temperature; Negative: Breakdown, Lesion Neuro Exam: Positive: Normal Gait, Normal Speech, Strength at 5/5 X4 ext, Normal Tone Psych Exam: Positive: Memory Intact, Oriented x 3 Vital Signs Vital Signs Date Time Temp Pulse Resp B/P (MAP) Pulse Ox O2 Delivery O2 Flow Rate FiO2 06/07/20 15:21 98.5 97 28 144/77 (99) 94 Nasal Cannula 2.0 Laboratory Data Labs 24H Laboratory Tests 2 06/07/20 11:23: Immature Granulocyte % (Auto) 0.4, Neutrophils (%) (Auto) 74.4H, Lymphocytes (%) (Auto) 15.4L, Monocytes (%) (Auto) 9.4H, Eosinophils (%) (Auto) 0.2, Basophils (%) (Auto) 0.2, Neutrophils # (Auto) 3.6, Lymphocytes # (Auto) 0.8L, Monocytes # (Auto) 0.5, Eosinophils # (Auto) 0.0, Basophils # (Auto) 0.0, Nucleated Red Blood Cells % (auto) 0.0, Anion Gap 4L, Glomerular Filtration Rate > 60.0, Lactic Acid Level 0.9, Calcium Level 8.3L, Total Bilirubin 0.6, Direct Bilirubin 0.3H, Aspartate Amino Transf (AST/SGOT) 44H, Alanine Aminotransferase (ALT/SGPT) 42, Alkaline Phosphatase 105, Total Creatine Kinase 150, Creatine Kinase MB 3.4, Creatine Kinase MB Relative Index 2.27, Troponin I 0.05, WZ-Ryr-R-Type Natriuretic Peptide 5269H, Total Protein 6.5, Albumin 2.7L, Albumin/Globulin Ratio 0.7, Coronavirus (COVID-19)(PCR) NEGATIVE CBC/BMP Laboratory Tests 06/07/20 11:23 Microbiology Microbiology 06/07/20 Respiratory Virus Panel (PCR) (BELLA) - Final, Complete 06/07/20 Blood Culture, Received Pending Assessment/Plan 85 year old male with H/O COPD, Left Pneumonectomy, has been having fever, chills, cough and nasal congestion for the past 1 week. He had gone to Urgent care 4 days ago and was diagnosed with Viral infection/pneumonia, COVID and FLu were negative. He was given Augmentin, tylenol. He has been taking the antibiotics as prescribed but has not felt any better. He starting feeling SOB which he felt was increasing so that walking around the house was making him winded, he continued to have low grade fever 99 to 100 the t max was 102 one day. He was having wheezing and chest tightness. His was feeling more fatigued and weak with poor appetite so came to the ED for evaluation. COVID and resp panel today was negative, CXR showed right sided pneumonia. CXR Showed Dense right upper and lower lobe infiltrates. Patient was found to having ronchi and wheezing also and his ProBNP was also elevated. Patient was admitted for pneumonia and COPD exacerbation. Right sided pneumonia will send sputum culture, urine legionella and urine strep antigen, MRSA PCR. Did not improve with Augmentin. Zosyn. tylenol. COPD exacerbation due to pneumonia duonebs, symbicort, methyl pred. Elevated ProBNp clinically patient is not fluid overloaded will get Echo. BPH flomax and finasteride. H/O CVAs continue asa and plavix Plan / VTE VTE Prophylaxis Ordered?: Yes NENA HENRY MD Jun 07, 2020 16:22
[2020-06-07] MEDS: methylPREDNISolone 40MG 1ML VIAL IV SCH (18:53)
[2020-06-07] MEDS: SYMBICORT 80/4.5MCG INHALER 6GM INH SCH (19:46)
[2020-06-07] MEDS: PIPERACILLIN/TAZOBACTAM SOD 3.375 GM in D5W MINI-BAG PLUS 50 ML IV SCH (20:18)
[2020-06-07] MEDS: OMEPRAZOLE 20 MG CAP PO SCH (20:20)
--- NOTE | 2020-06-07 21:40 | ECGEPIP ---
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
[2020-06-07] MEDS: BENZONATATE 100 MG CAP PO SCH (21:44)
[2020-06-07 22:00] VITALS: BP 115/73
[2020-06-08] MEDS: PIPERACILLIN/TAZOBACTAM SOD 3.375 GM in D5W MINI-BAG PLUS 50 ML IV SCH ×4 (02:48→20:47)
[2020-06-08] MEDS: methylPREDNISolone 40MG 1ML VIAL IV SCH ×3 (02:48→17:32)
[2020-06-08] MEDS: IPRATROPIUM 0.5MG/ALBUTEROL 2.5MG INH SOL UD 3ML (DUONEB) NEB SCH ×6 (03:38→23:52)
[2020-06-08] MEDS: BENZONATATE 100 MG CAP PO SCH ×3 (05:13→22:34)
[2020-06-08 06:00] VITALS: BP 120/76
[2020-06-08 08:12] LABS: BASO % 0.5 % (0.0-1.0); HEMATOCRIT 43.7 % (42.0-52.0); HEMOGLOBIN 14.6 g/dl (13.5-17.5); LYMPH # 0.4 10^3/uL (1.5-5.0); LYMPH % 15.8 % (24.0-44.0); MEAN CORPUSCULAR HEMOGLOBIN 29.7 pg (27.0-33.0); MEAN CORPUSCULAR HGB CONC 33.4 g/dl (32.0-36.5); MEAN CORPUSCULAR VOLUME 88.8 fl (80.0-96.0); MONO # 0.1 10^3/uL (0.0-0.8); MONO % 2.7 % (0.0-5.0); NEUTROPHILS # 1.8 10^3/uL (1.5-8.5); NEUTROPHILS % 80.5 % (36.0-66.0); PLATELET COUNT, AUTOMATED 255 10^3/uL (150-450); RED BLOOD COUNT 4.92 10^6/uL (4.30-6.10); WHITE BLOOD COUNT 2.2 10^3/uL (4.0-10.0)
[2020-06-08 08:39] LABS: BLOOD UREA NITROGEN 13 MG/DL (7-18); CALCIUM LEVEL 8.5 MG/DL (8.8-10.2); CARBON DIOXIDE LEVEL 28 MEQ/L (21-32); CHLORIDE LEVEL 102 MEQ/L (98-107); CREATININE FOR GFR 0.91 MG/DL (0.70-1.30); GLOMERULAR FILTRATION RATE > 60.0 (>35); GLUCOSE, FASTING 160 MG/DL (70-100); POTASSIUM SERUM 4.1 MEQ/L (3.5-5.1); SODIUM LEVEL 136 MEQ/L (136-145)
[2020-06-08] MEDS: ASPIRIN 81 MG ENTERIC TAB PO SCH (09:23)
[2020-06-08] MEDS: TAMSULOSIN 0.4 MG CAP PO SCH (09:24)
[2020-06-08] MEDS: FINASTERIDE 5 MG TAB PO SCH (09:24)
[2020-06-08] MEDS: CLOPIDOGREL 75 MG TAB PO SCH (09:24)
[2020-06-08] MEDS: ENOXAPARIN 30MG/0.3ML SYRINGE (J1650 PER 10MG) SC SCH (09:24)
--- NOTE | 2020-06-08 11:15 | IPNPDOC ---
Subjective Date Seen The patient was seen on 06/08/20. Subjective Chief Complaint/HPI Feeling much better this morning. No SOB, has some cough with increased phlegm production with some sally material in it. Objective Physical Examination General Exam: Positive: Alert, Cooperative, No Acute Distress Eye Exam: Positive: PERRLA, Conjunctiva & lids normal, EOMI; Negative: Sclera icteric ENT Exam: Positive: Atraumatic, Mucous membr. moist/pink, Pharynx Normal Chest Exam: Positive: Clear to auscultation, Diminished (on the left side ) Heart Exam: Positive: Rate Normal, Regular Rhythm, Normal S1, Normal S2; Negative: Murmurs, Rubs Abdomen Exam: Positive: Normal bowel sounds, Soft; Negative: Tenderness, Hepatospenomegaly Extremity Exam: Positive: Edema (on the right leg with varicose veins.), Normal pulses; Negative: Clubbing, Cyanosis Skin Exam: Positive: Nl turgor and temperature; Negative: Breakdown, Lesion Neuro Exam: Positive: Normal Gait, Normal Speech, Strength at 5/5 X4 ext, Normal Tone Psych Exam: Positive: Memory Intact, Oriented x 3 Assessment /Plan Assessment 85 year old male with H/O COPD, Left Pneumonectomy, has been having fever, chills, cough and nasal congestion for the past 1 week. He had gone to Urgent care 4 days ago and was diagnosed with Viral infection/pneumonia, COVID and FLu were negative. He was given Augmentin, tylenol. He has been taking the antibiotics as prescribed but has not felt any better. He starting feeling SOB which he felt was increasing so that walking around the house was making him winded, he continued to have low grade fever 99 to 100 the t max was 102 one day. He was having wheezing and chest tightness. His was feeling more fatigued and weak with poor appetite so came to the ED for evaluation. COVID and resp panel today was negative, CXR showed right sided pneumonia. CXR Showed Dense right upper and lower lobe infiltrates. Patient was found to having ronchi and wheezing also and his ProBNP was also elevated. Patient was admitted for pneumonia and COPD exacerbation. Right sided pneumonia sputum culture, urine legionella and urine strep antigen pending. Did not improve with Augmentin. Zosyn. MRSA pcr negative. tylenol. COPD exacerbation due to pneumonia duonebs, symbicort, methyl pred. Elevated ProBNp clinically patient is not fluid overloaded will get Echo. BPH flomax and finasteride. H/O CVAs continue asa and plavix Plan/VTE VTE Prophylaxis Ordered?: Yes VS, I&O, 24H, Antoine Vital Signs/I&O Vital Signs Date Time Temp Pulse Resp B/P (MAP) Pulse Ox O2 Delivery O2 Flow Rate FiO2 06/08/20 06:00 97.6 81 18 120/76 (91) 92 Room Air 06/07/20 17:25 2.0 I&O- Last 24 Hours up to 6 AM 06/08/20 06:00 Intake Total 750 ml Output Total 550 ml Balance 200 ml Laboratory Data 24H LABS Laboratory Tests 2 06/07/20 11:23: Immature Granulocyte % (Auto) 0.4, Neutrophils (%) (Auto) 74.4H, Lymphocytes (%) (Auto) 15.4L, Monocytes (%) (Auto) 9.4H, Eosinophils (%) (Auto) 0.2, Basophils (%) (Auto) 0.2, Neutrophils # (Auto) 3.6, Lymphocytes # (Auto) 0.8L, Monocytes # (Auto) 0.5, Eosinophils # (Auto) 0.0, Basophils # (Auto) 0.0, Nucleated Red Blood Cells % (auto) 0.0, Anion Gap 4L, Glomerular Filtration Rate > 60.0, Lactic Acid Level 0.9, Calcium Level 8.3L, Total Bilirubin 0.6, Direct Bilirubin 0.3H, Aspartate Amino Transf (AST/SGOT) 44H, Alanine Aminotransferase (ALT/SGPT) 42, Alkaline Phosphatase 105, Total Creatine Kinase 150, Creatine Kinase MB 3.4, Creatine Kinase MB Relative Index 2.27, Troponin I 0.05, UB-Lyj-I-Type Natriuretic Peptide 5269H, Total Protein 6.5, Albumin 2.7L, Albumin/Globulin Ratio 0.7, Coronavirus (COVID-19)(PCR) NEGATIVE 06/07/20 18:34: Methicillin-Resist S.aureus DNA PCR NOT DETECTED 06/07/20 21:48: 06/08/20 07:38: Immature Granulocyte % (Auto) 0.5, Neutrophils (%) (Auto) 80.5H, Lymphocytes (%) (Auto) 15.8L, Monocytes (%) (Auto) 2.7, Eosinophils (%) (Auto) 0.0, Basophils ( %) (Auto) 0.5, Neutrophils # (Auto) 1.8, Lymphocytes # (Auto) 0.4L, Monocytes # (Auto) 0.1, Eosinophils # (Auto) 0.0, Basophils # (Auto) 0.0, Nucleated Red Blood Cells % (auto) 0.0, Anion Gap 6L, Glomerular Filtration Rate > 60.0, Calcium Level 8.5L CBC/BMP Laboratory Tests 06/07/20 11:23 06/08/20 07:38 Microbiology Microbiology 06/08/20 Gram Stain, Received Pending 06/08/20 Sputum Culture, Received Pending 06/07/20 Blood Culture, Received Pending 06/07/20 Respiratory Virus Panel (PCR) ([facility]) - Final, Complete 06/07/20 Blood Culture, Received Pending NENA HENRY MD Jun 08, 2020 11:15
[2020-06-08] MEDS: SYMBICORT 80/4.5MCG INHALER 6GM INH SCH ×2 (11:16→19:16)
[2020-06-08 14:00] VITALS: BP 115/90
[2020-06-08] MEDS: OMEPRAZOLE 20 MG CAP PO SCH (20:47)
[2020-06-08 22:00] VITALS: BP 135/88
[2020-06-09] MEDS ORDERED: SODIUM CHLORIDE NASAL 0.65% SPRAY BTL (OCEAN) PRN (00:15)
[2020-06-09] MEDS: PIPERACILLIN/TAZOBACTAM SOD 3.375 GM in D5W MINI-BAG PLUS 50 ML IV SCH ×4 (03:06→20:52)
[2020-06-09] MEDS: IPRATROPIUM 0.5MG/ALBUTEROL 2.5MG INH SOL UD 3ML (DUONEB) NEB SCH ×6 (03:40→23:45)
[2020-06-09] MEDS: BENZONATATE 100 MG CAP PO SCH ×3 (05:47→20:53)
[2020-06-09] MEDS: methylPREDNISolone 40MG 1ML VIAL IV SCH (05:47)
[2020-06-09 06:00] VITALS: BP 138/90
[2020-06-09 07:08] LABS: BASO % 0.1 % (0.0-1.0); HEMATOCRIT 41.8 % (42.0-52.0); HEMOGLOBIN 13.9 g/dl (13.5-17.5); LYMPH # 0.6 10^3/uL (1.5-5.0); LYMPH % 7.1 % (24.0-44.0); MEAN CORPUSCULAR HEMOGLOBIN 29.7 pg (27.0-33.0); MEAN CORPUSCULAR HGB CONC 33.3 g/dl (32.0-36.5); MEAN CORPUSCULAR VOLUME 89.3 fl (80.0-96.0); MONO # 0.6 10^3/uL (0.0-0.8); MONO % 7.1 % (0.0-5.0); NEUTROPHILS # 6.8 10^3/uL (1.5-8.5); NEUTROPHILS % 85.1 % (36.0-66.0); PLATELET COUNT, AUTOMATED 318 10^3/uL (150-450); RED BLOOD COUNT 4.68 10^6/uL (4.30-6.10)
[2020-06-09] MEDS: SYMBICORT 80/4.5MCG INHALER 6GM INH SCH ×2 (07:26→18:05)
[2020-06-09 07:44] LABS: BLOOD UREA NITROGEN 16 MG/DL (7-18); CALCIUM LEVEL 8.8 MG/DL (8.8-10.2); CARBON DIOXIDE LEVEL 29 MEQ/L (21-32); CHLORIDE LEVEL 104 MEQ/L (98-107); CREATININE FOR GFR 0.98 MG/DL (0.70-1.30); GLOMERULAR FILTRATION RATE > 60.0 (>35); GLUCOSE, FASTING 149 MG/DL (70-100); POTASSIUM SERUM 3.8 MEQ/L (3.5-5.1); SODIUM LEVEL 136 MEQ/L (136-145)
--- NOTE | 2020-06-09 08:43 | IPNPDOC ---
Subjective Date Seen The patient was seen on 06/09/20. Subjective Chief Complaint/HPI Feeling good this morning. Continues to have some cough otherwise no complaints. Did not need any oxygen. Objective Physical Examination General Exam: Positive: Alert, Cooperative, No Acute Distress Eye Exam: Positive: PERRLA, Conjunctiva & lids normal, EOMI; Negative: Sclera icteric ENT Exam: Positive: Atraumatic, Mucous membr. moist/pink, Pharynx Normal Chest Exam: Positive: Clear to auscultation, Diminished (on the left side ) Heart Exam: Positive: Rate Normal, Regular Rhythm, Normal S1, Normal S2; Negative: Murmurs, Rubs Abdomen Exam: Positive: Normal bowel sounds, Soft; Negative: Tenderness, Hepatospenomegaly Extremity Exam: Positive: Edema (on the right leg with varicose veins.), Normal pulses; Negative: Clubbing, Cyanosis Skin Exam: Positive: Nl turgor and temperature; Negative: Breakdown, Lesion Neuro Exam: Positive: Normal Gait, Normal Speech, Strength at 5/5 X4 ext, Normal Tone Psych Exam: Positive: Memory Intact, Oriented x 3 Assessment /Plan Assessment 85 year old male with H/O COPD, Left Pneumonectomy, has been having fever, chills, cough and nasal congestion for the past 1 week. He had gone to Urgent care 4 days ago and was diagnosed with Viral infection/pneumonia, COVID and FLu were negative. He was given Augmentin, tylenol. He has been taking the antibiotics as prescribed but has not felt any better. He starting feeling SOB which he felt was increasing so that walking around the house was making him winded, he continued to have low grade fever 99 to 100 the t max was 102 one day. He was having wheezing and chest tightness. His was feeling more fatigued and weak with poor appetite so came to the ED for evaluation. COVID and resp panel today was negative, CXR showed right sided pneumonia. CXR Showed Dense right upper and lower lobe infiltrates. Patient was found to having ronchi and wheezing also and his ProBNP was also elevated. Patient was admitted for pneumonia and COPD exacerbation. Right sided pneumonia sputum culture, urine legionella and urine strep antigen pending. Did not improve with Augmentin. Zosyn. MRSA pcr negative. tylenol. COPD exacerbation due to pneumonia duonebs, symbicort, methyl pred. Elevated ProBNp clinically patient is not fluid overloaded will get Echo. BPH flomax and finasteride. H/O CVAs continue asa and plavix Plan/VTE VTE Prophylaxis Ordered?: Yes VS, I&O, 24H, Fishbone Vital Signs/I&O Vital Signs Date Time Temp Pulse Resp B/P (MAP) Pulse Ox O2 Delivery O2 Flow Rate FiO2 06/09/20 06:00 97.6 114 20 138/90 (106) 90 Room Air 06/07/20 17:25 2.0 l I&O- Last 24 Hours up to 6 AM 06/09/20 06:00 Intake Total 1300 ml Output Total 200 ml Balance 1100 ml Laboratory Data 24H LABS Laboratory Tests 2 06/09/20 06:47: Immature Granulocyte % (Auto) 0.6, Neutrophils (%) (Auto) 85.1H, Lymphocytes (%) (Auto) 7.1L, Monocytes (%) (Auto) 7.1H, Eosinophils (%) (Auto) 0.0, Basophils (%) (Auto) 0.1, Neutrophils # (Auto) 6.8, Lymphocytes # (Auto) 0.6L, Monocytes # (Auto) 0.6, Eosinophils # (Auto) 0.0, Basophils # (Auto) 0.0, Nucleated Red Blood Cells % (auto) 0.0, Anion Gap 3L, Glomerular Filtration Rate > 60.0, Calcium Level 8.8 CBC/BMP Laboratory Tests 06/09/20 06:47 Microbiology Microbiology 06/08/20 Gram Stain - Final, Resulted 06/08/20 Sputum Culture, Resulted Pending 06/07/20 Blood Culture - Preliminary, Resulted No growth after 24 hours . All specim... 06/07/20 Respiratory Virus Panel (PCR) ([facility]) - Final, Complete 06/07/20 Blood Culture - Preliminary, Resulted No growth after 24 hours . All specim... NENA HENRY MD Jun 09, 2020 08:43
[2020-06-09] MEDS: CLOPIDOGREL 75 MG TAB PO SCH (09:27)
[2020-06-09] MEDS: FINASTERIDE 5 MG TAB PO SCH (09:27)
[2020-06-09] MEDS: TAMSULOSIN 0.4 MG CAP PO SCH (09:27)
[2020-06-09] MEDS: ENOXAPARIN 30MG/0.3ML SYRINGE (J1650 PER 10MG) SC SCH (09:27)
[2020-06-09] MEDS: ASPIRIN 81 MG ENTERIC TAB PO SCH (09:27)
[2020-06-09 14:00] VITALS: BP 119/59
[2020-06-09] MEDS: OMEPRAZOLE 20 MG CAP PO SCH (20:53)
[2020-06-09 22:00] VITALS: BP 128/88
[2020-06-10] MEDS: IPRATROPIUM 0.5MG/ALBUTEROL 2.5MG INH SOL UD 3ML (DUONEB) NEB SCH ×3 (03:48→11:03)
[2020-06-10] MEDS: PIPERACILLIN/TAZOBACTAM SOD 3.375 GM in D5W MINI-BAG PLUS 50 ML IV SCH ×2 (03:54→09:33)
[2020-06-10] MEDS: BENZONATATE 100 MG CAP PO SCH (05:21)
[2020-06-10 06:00] VITALS: BP 130/89
[2020-06-10] MEDS ORDERED: methylPREDNISolone 40MG 1ML VIAL IV SCH (06:00)
[2020-06-10 06:39] LABS: BASO % 0.4 % (0.0-1.0); EOS % 0.1 % (0.0-3.0); HEMATOCRIT 43.9 % (42.0-52.0); HEMOGLOBIN 14.7 g/dl (13.5-17.5); LYMPH # 1.8 10^3/uL (1.5-5.0); LYMPH % 15.6 % (24.0-44.0); MEAN CORPUSCULAR HEMOGLOBIN 30.8 pg (27.0-33.0); MEAN CORPUSCULAR HGB CONC 33.5 g/dl (32.0-36.5); MONO # 1.1 10^3/uL (0.0-0.8); MONO % 9.7 % (0.0-5.0); NEUTROPHILS % 71.5 % (36.0-66.0); PLATELET COUNT, AUTOMATED 398 10^3/uL (150-450); RED BLOOD COUNT 4.77 10^6/uL (4.30-6.10); WHITE BLOOD COUNT 11.2 10^3/uL (4.0-10.0)
[2020-06-10 07:02] LABS: BLOOD UREA NITROGEN 16 MG/DL (7-18); CALCIUM LEVEL 8.9 MG/DL (8.8-10.2); CARBON DIOXIDE LEVEL 28 MEQ/L (21-32); CHLORIDE LEVEL 103 MEQ/L (98-107); CREATININE FOR GFR 0.99 MG/DL (0.70-1.30); GLOMERULAR FILTRATION RATE > 60.0 (>35); GLUCOSE, FASTING 100 MG/DL (70-100); SODIUM LEVEL 137 MEQ/L (136-145)
[2020-06-10] MEDS: SYMBICORT 80/4.5MCG INHALER 6GM INH SCH (07:21)
[2020-06-10] MEDS: FINASTERIDE 5 MG TAB PO SCH (09:33)
[2020-06-10] MEDS: CLOPIDOGREL 75 MG TAB PO SCH (09:33)
[2020-06-10] MEDS: TAMSULOSIN 0.4 MG CAP PO SCH (09:33)
[2020-06-10] MEDS: ASPIRIN 81 MG ENTERIC TAB PO SCH (09:33)
[2020-06-10] MEDS: ENOXAPARIN 30MG/0.3ML SYRINGE (J1650 PER 10MG) SC SCH (09:40)
[2020-06-10] MEDS ORDERED: LEVO750T13 PO (09:53)
[2020-06-10] MEDS ORDERED: BENZ-18 PO (10:03)
[2020-06-10] MEDS ORDERED: LevoFLOXacin 750 MG TABLET PO ONE (10:15)
[2020-06-11] MEDS ORDERED: LevoFLOXacin 750 MG TABLET PO SCH (06:00)
--- NOTE | 2020-06-11 11:40 | ECHO ---
DATE OF PROCEDURE: 06/08/2020 Age: 85 Gender: Male Height: 173 cm Weight: 81 kg REFERRING PHYSICIAN: Suyapa Trotter MD. INDICATION: Dyspnea, unspecified. MEASUREMENTS: 2D Measurements: Aortic root 3.1 cm Left atrium 3.8 cm Intraventricular septum 1.36 cm Posterior wall 1.25 cm Left ventricle diastole 5.4 cm Inferior vena cava 1.5 cm (more than 50% respiratory variation). Suggestive of central venous pressure of 5-10 mmHg Doppler Measurements: No aortic stenosis No aortic regurgitation Mild mitral regurgitation No mitral stenosis No tricuspid regurgitation No pulmonary regurgitation No pulmonic regurgitation DESCRIPTION: Rhythm was probably sinus. This was a moderately technically difficult echocardiogram. No pericardial effusion. This was a 2D, M-mode, color flow Doppler, and pulsed wave Doppler examination including mitral annular tissue Doppler. CONCLUSIONS: 1. Mild concentric left ventricular hypertrophy. Moderate reduction of overall left ventricular (LV) systolic function. Left ventricular ejection fraction (LVEF) 40% by visual estimate. Paradoxical septal motion with mild global left ventricular (LV) hypokinesis elsewhere. 2. Moderate aortic valve sclerosis of a 3-cuspid aortic valve. No aortic stenosis or regurgitation. 3. Mild mitral annular calcification. Mild mitral regurgitation. 4. Moderately technically difficult echocardiogram. 5. Otherwise normal appearing echocardiogram Doppler findings. [facility]
[2020-06-11 17:07] LABS: BODY FLUID CULTURE Not indicated. (.); LEGIONELLA ANTIGEN URINE Negative (Negative); ORGANISM ID Not indicated. (.); SPECIMEN SOURCE Urine (.); URINE STREP PNEUMONIAE ANTIGEN Negative (Negative)
--- NOTE | 2020-06-15 08:58 | DS.PDOC ---
Discharge Summary General Date of Admission Jun 07, 2020 at 13:31 Date of Discharge 06/10/20 Discharge Summary PROCEDURES PERFORMED DURING STAY: [None]. DISCHARGE DIAGNOSES: Gram negative pneumonia a single lung COPD exacerbation Chronic systolic CHF with EF of 40%. BPH H/O CVAs. COMPLICATIONS/CHIEF COMPLAINT: Pneumonia. HOSPITAL COURSE: 85 year old male with H/O COPD, Left Pneumonectomy, has been having fever, chills, cough and nasal congestion for the past 1 week. He had gone to Urgent care 4 days ago and was diagnosed with Viral infection/pneumonia, COVID and FLu were negative. He was given Augmentin, tylenol. He has been taking the antibiotics as prescribed but has not felt any better. He starting feeling SOB which he felt was increasing so that walking around the house was making him winded, he continued to have low grade fever 99 to 100 the t max was 102 one day. He was having wheezing and chest tightness. His was feeling more fatigued and weak with poor appetite so came to the ED for evaluation. COVID and resp panel today was negative, CXR showed right sided pneumonia. CXR Showed Dense right upper and lower lobe infiltrates. Patient was found to having ronchi and wheezing also and his ProBNP was also elevated. Patient was admitted for pneumonia and COPD exacerbation. Gram Negative Pneumonia in a single lung Right sided pneumonia. sputum culture Enterobacter cloacae complex. Zosyn to Levofloxacin on discharge MRSA pcr negative. Urine legionella neg, Ur strep pneumoniae antigen neg. COPD exacerbation resolved due to pneumonia given duonebs, symbicort, methyl pred. Chronic Systolic CHF EF of 40%. clinically patient is not fluid overloaded BPH flomax and finasteride. H/O CVAs continue asa and plavix DISCHARGE MEDICATIONS: Please see below. ALLERGIES: Please see below. PHYSICAL EXAMINATION ON DISCHARGE: VITAL SIGNS: Please see below. General Exam: Positive: Alert, Cooperative, No Acute Distress Eye Exam: Positive: PERRLA, Conjunctiva & lids normal, EOMI; Negative: Sclera icteric ENT Exam: Positive: Atraumatic, Mucous membr. moist/pink, Pharynx Normal Chest Exam: Positive: Clear to auscultation, Diminished (on the left side ) Heart Exam: Positive: Rate Normal, Regular Rhythm, Normal S1, Normal S2; Negative: Murmurs, Rubs Abdomen Exam: Positive: Normal bowel sounds, Soft; Negative: Tenderness, Hepatosplenomegaly Extremity Exam: Positive: Edema (on the right leg with varicose veins.), Normal pulses; Negative: Clubbing, Cyanosis Skin Exam: Positive: Nl turgor and temperature; Negative: Breakdown, Lesion Neuro Exam: Positive: Normal Gait, Normal Speech, Strength at 5/5 X4 ext, Normal Tone Psych Exam: Positive: Memory Intact, Oriented x 3 LABORATORY DATA: Please see below. ACTIVITY: [As tolerated]. DIET: As tolerated DISPOSITION: 01 Home, Self-Care. DISCHARGE INSTRUCTIONS: PMD in 1 to 2 weeks DISCHARGE CONDITION: [Stable]. TIME SPENT ON DISCHARGE: 35 minutes. Vital Signs/I&Os Vital Signs Date Time Temp Pulse Resp B/P (MAP) Pulse Ox O2 Delivery O2 Flow Rate FiO2 06/10/20 06:00 96.9 106 19 130/89 (103) 92 Room Air Laboratory Data CBC/BMP Item Value Date Time White Blood Count 11.2 10^3/uL H 06/10/20 0550 Red Blood Count 4.77 10^6/uL 06/10/20 0550 Hemoglobin 14.7 g/dl 06/10/20 0550 Hematocrit 43.9 % 06/10/20 0550 Mean Corpuscular Volume 92.0 fl 06/10/20 0550 Mean Corpuscular Hemoglobin 30.8 pg 06/10/20 0550 Mean Corpuscular Hemoglobin Concent 33.5 g/dl 06/10/20 0550 Red Cell Distribution Width 12.2 % 06/10/20 0550 Immature Granulocyte % (Auto) 2.7 % 06/10/20 0550 Platelet Count 398 10^3/uL 06/10/20 0550 Sodium Level 137 MEQ/L 06/10/20 0550 Potassium Level 4.0 MEQ/L 06/10/20 0550 Chloride Level 103 MEQ/L 06/10/20 0550 Carbon Dioxide Level 28 MEQ/L 06/10/20 0550 Anion Gap 6 MEQ/L L 06/10/20 0550 Blood Urea Nitrogen 16 MG/DL 06/10/20 0550 Creatinine 0.99 MG/DL 06/10/20 0550 Glomerular Filtration Rate > 60.0 06/10/20 0550 Fasting Glucose 100 MG/DL 06/10/20 0550 Calcium Level 8.9 MG/DL 06/10/20 0550 Microbiology Microbiology 06/08/20 Gram Stain - Final, Complete 06/08/20 Sputum Culture - Final, Complete Enterobacter Cloacae Complex Yeast Like Organism 06/07/20 Blood Culture - Final, Complete NO GROWTH AFTER 5 DAYS 06/07/20 Respiratory Virus Panel (PCR) ([facility]) - Final, Complete 06/07/20 Blood Culture - Final, Complete NO GROWTH AFTER 5 DAYS Discharge Medications Scheduled Aspirin (Aspirin EC) 81 Mg Tablet.dr, 81 MG PO DAILY, (Reported) Benzonatate (Benzonatate) 100 Mg Capsule, 200 MG PO Q8H Bimatoprost (Lumigan) 50 Drop/2.5 Ml Marta, 1 DROP OU QHS, (Reported) Budesonide/Formoterol (Symbicort 80-4.5 Mcg Inhaler) 60 Puff/Inhaler Aers, 2 P UFF INH BID, (Reported) Clopidogrel Bisulfate (Clopidogrel) 75 Mg Tablet, 75 MG PO DAILY, (Reported) Finasteride (Finasteride) 5 Mg Tablet, 5 MG PO DAILY, (Reported) Ipratropium/Albuterol Sulfate (Iprat-Albut 0.5-3(2.5) mg/3 ml) 1 Marta Marta, 1 VIAL NEB TID, (Reported) Levofloxacin (Levofloxacin) 750 Mg Tablet, 1 TAB PO DAILY Omeprazole (Omeprazole) 20 Mg Cap, 20 MG PO QHS, (Reported) Tamsulosin HCl (Flomax) 0.4 Mg Cap, 0.4 MG PO DAILY, (Reported) Scheduled PRN Fluticasone Propionate (Flonase Allergy Relief) 50 Mcg/Act Spr, 1 SPRAYS NARES B ID PRN for CONGESTION, (Reported) Allergies Coded Allergies: No Known Allergies (Unverified , 12/25/16) NENA HENRY MD Jun 15, 2020 08:58
== END 2020-06-10 13:05 | disposition home or self-care (01) | DRG 178 ==
LOC: M ED 10:08 → M ED INP 13:31 → M MSPAV 17:25
PROVIDERS: ADMIT Internal Medicine Nephrology; ATTEND Internal Medicine Nephrology
DX: J15.6 Pneumonia due to other Gram-negative bacteria (principal); J44.0 Chronic obstructive pulmonary disease with (acute) lower respiratory infection; J44.1 Chronic obstructive pulmonary disease with (acute) exacerbation; I50.22 Chronic systolic (congestive) heart failure; J45.909 Unspecified asthma, uncomplicated; N40.0 Benign prostatic hyperplasia without lower urinary tract symptoms; K21.9 Gastro-esophageal reflux disease without esophagitis; K44.9 Diaphragmatic hernia without obstruction or gangrene; K27.9 Peptic ulcer, site unspecified, unspecified as acute or chronic, without hemorrhage or perforation; D47.2 Monoclonal gammopathy; Z20.828 Contact with and (suspected) exposure to other viral communicable diseases; Z79.82 Long term (current) use of aspirin; Z79.02 Long term (current) use of antithrombotics/antiplatelets; Z79.899 Other long term (current) drug therapy; Z90.2 Acquired absence of lung [part of]; Z98.41 Cataract extraction status, right eye; Z98.42 Cataract extraction status, left eye; Z86.73 Personal history of transient ischemic attack (TIA), and cerebral infarction without residual deficits

== ENCOUNTER 2020-09-24 19:36 | Emergency (ER) | payer MEDICARE ==
[~2020-09-24] VITALS: Ht 172.7 cm; Wt 72.8 kg
[~2020-09-24 19:36] MED LIST changes: +AMOX875T PO; +BENZ-18 PO; +LEVO750T13 PO; +MONT10TA10; -MONT10TA4
[2020-09-24] MEDS ORDERED: ACETAMINOPHEN 500 MG TAB PO ONE (20:50)
[2020-09-24] MEDS ORDERED: LIDOCAINE 4% CREAM 5GM (LMX4) TOP ONE (20:50)
--- NOTE | 2020-09-24 21:42 | REPVR ---
PROCEDURE INFORMATION: Exam: CT Cervical Spine Without Contrast Exam date and time: 09/24/2020 8:54 PM Age: 85 years old Clinical indication: Injury or trauma; Fall; Blunt trauma; Additional info: Fall 4ft, neck pain TECHNIQUE: Imaging protocol: Computed tomography images of the cervical spine without contrast. Radiation optimization: All CT scans at this facility use at least one of these dose optimization techniques: automated exposure control; mA and/or kV adjustment per patient size (includes targeted exams where dose is matched to clinical indication); or iterative reconstruction. COMPARISON: 03/30/[address] FINDINGS: Bones/joints: Minor grade 1 retrolisthesis at C3-C4 and grade 1 anterolisthesis at C7-T1. No displaced fractures. Discs/Spinal canal/Neural foramina: Advanced discogenic degenerative changes throughout the cervical spine. Advanced facet DJD with multilevel foraminal stenosis. Lungs: Lung apices are normal. Pleural spaces: Thick-walled pleural effusion in the left chest. Soft tissues: Unremarkable. IMPRESSION: 1. No fracture. 2. Advanced degenerative spondylosis. 3. Chronic left pleural effusion. Electronically signed by: Yaakov Oliveira On 09/24/2020 21:42:20 PM
--- NOTE | 2020-09-24 21:44 | REPVR ---
PROCEDURE INFORMATION: Exam: CT Head Without Contrast Exam date and time: 09/24/2020 8:54 PM Age: 85 years old Clinical indication: Injury or trauma; Fall; Blunt trauma (contusions or hematomas); Additional info: Fall 4ft, neck pain TECHNIQUE: Imaging protocol: Computed tomography of the head without contrast. Radiation optimization: All CT scans at this facility use at least one of these dose optimization techniques: automated exposure control; mA and/or kV adjustment per patient size (includes targeted exams where dose is matched to clinical indication); or iterative reconstruction. COMPARISON: CT Head without contrast 09/21/2018 1:39 PM FINDINGS: Brain: Normal. No hemorrhage. Unremarkable white matter. No mass effect. Cerebral ventricles: No ventriculomegaly. Bones/joints: Unremarkable. No acute fracture. Paranasal sinuses: Visualized sinuses are unremarkable. No fluid levels. Mastoid air cells: Visualized mastoid air cells are well aerated. Soft tissues: Unremarkable. IMPRESSION: No acute intracranial abnormality. Electronically signed by: Yaakov Oliveira On 09/24/2020 21:45:05 PM
--- NOTE | 2020-09-24 21:59 | REPVR ---
PROCEDURE INFORMATION: Exam: XR Left Shoulder Exam date and time: 09/24/2020 9:16 PM Age: 85 years old Clinical indication: Pain; Shoulder; Left; Additional info: Fall, PT tender TECHNIQUE: Imaging protocol: XR Left shoulder. Views: 2 or more views. COMPARISON: 1. CR SHOULDER COMPLETE 10/14/2018 2:[address] Chest with contrast 10/04/2019 1:56:34 PM FINDINGS: Bones/joints: There is no acute fracture or dislocation of the left shoulder. There is mild osteoarthritis of the left acromioclavicular joint. There has been a partial resection of the left posterior 6th rib. Several old healed left rib fracture deformities are noted. The left ribs were not fully imaged. Lungs: There is volume loss in the left hemithorax and complete opacification of the left hemithorax status post left pneumonectomy, which can also be seen in the CT chest on 10/04/2019. Heart/Mediastinum: There are surgical clips in the mediastinum. Soft tissues: Unremarkable. No calcific densities are seen in the rotator cuff or subacromial subdeltoid bursa to suggest calcific tendinitis or calcific subacromial subdeltoid bursitis. IMPRESSION: No acute fracture or dislocation of the left shoulder. Electronically signed by: Ilir Brown On 09/24/2020 21:59:52 PM
--- NOTE | 2020-09-24 22:00 | REPVR ---
PROCEDURE INFORMATION: Exam: XR Left Hip Exam date and time: 09/24/2020 9:16 PM Age: 85 years old Clinical indication: Hip pain; Left hip; Additional info: Fall, PT tender TECHNIQUE: Imaging protocol: XR Left hip. Views: 2 or 3 views hip with pelvis when performed. COMPARISON: CT ABD PELVIS W/O CONTRAST 03/18/2019 2:39 PM FINDINGS: Bones/joints: There is no fracture or dislocation of the left hip. The left hip joint space and alignment are preserved. There are degenerative changes in the lower lumbar spine, which are not fully evaluated in this study. Soft tissues: Unremarkable. Vasculature: Incidental note is made of small round calcifications in the pelvis, which are compatible with phleboliths. IMPRESSION: No fracture or dislocation of the left hip. Electronically signed by: Ilir Brown On 09/24/2020 22:01:26 PM
[2020-09-24] MEDS ORDERED: ANEC4CRE3 TOP (22:31)
[2020-09-24] MEDS ORDERED: TRAM50TA2 PO (22:31)
[2020-09-24 22:39] VITALS: BP 122/77
== END 2020-09-24 22:45 | disposition home or self-care (01) ==
LOC: M ED 19:36
DX: M25.512 Pain in left shoulder (principal); M25.552 Pain in left hip; W17.89XA Other fall from one level to another, initial encounter; Y92.89 Other specified places as the place of occurrence of the external cause; Z79.01 Long term (current) use of anticoagulants; Z79.899 Other long term (current) drug therapy; Z79.82 Long term (current) use of aspirin

== ENCOUNTER → 2020-10-15 | Outpatient (CLI) | payer MEDICARE ==
[~2020-10-15] MED LIST changes: +ANEC4CRE3 TOP; +TRAM50TA2 PO
--- NOTE | 2020-10-15 16:44 | REP ---
INDICATION: PAIN. COMPARISON: CT 07/23/2016 TECHNIQUE: Eight views FINDINGS: Cervical spondylosis from C3-4 through C7-T1 noted greatest at C3-4 and C 4 5 where there is near fusion least at C5-6. Few mm of posterior subluxation of C3 on 4 noted unchanged. No compression deformity or malalignment. No prevertebral swelling. There is some benign calcifications in soft tissues posterior to the spinous processes at C 5 and C6 stable from the study 4 years ago no instability on the flexion and extension views although the range of motion is limited with extension more than flexion. Open mouth view shows dens and lateral masses aligning normally. Foramina show some encroachment bilaterally at C3-4, left greater than right and at C4-5 on the right. No torticollis. Diffuse facet arthropathy. Opacification of the left upper lung zone as seen on a chest x-ray 06/17/2020, unchanged. IMPRESSION: Diffuse cervical spondylosis the C3-4 through C7-T1 greatest at C3-4 and C4-5 and also C6-7. Least at C5-6. No compression deformity or malalignment. The few mm of retrolisthesis of C3 on 4 is due to facet arthropathy and stable over the past 4 years. Somewhat decreased range of motion. No compression fractures. Bilateral foraminal encroachment at C3-4 on the right at C4-5. <Electronically signed by Rudi Mustafa > 10/15/20 [id number]
== END ==
LOC: M WUC 14:40
PROVIDERS: ATTEND Physician Assistant Medical
DX: M54.2 Cervicalgia (principal)

== ENCOUNTER → 2020-10-16 | Outpatient (CLI) | payer MEDICARE ==
[2020-10-16 13:16] LABS: BLOOD UREA NITROGEN 17 MG/DL (7-18); GLOMERULAR FILTRATION RATE > 60.0 (>35)
== END ==
LOC: M LAB 12:28
PROVIDERS: ATTEND Internal Medicine Pulmonary Disease
DX: J45.40 Moderate persistent asthma, uncomplicated (principal)

== ENCOUNTER → 2020-10-18 | Outpatient (CLI) | payer MEDICARE ==
[~2020-10-18] MED LIST changes: +ISOVUE-370 76% 100ML VIAL As Ordered ONE
--- NOTE | 2020-10-18 19:52 | REP ---
INDICATION: ASTHMA. COMPARISON: Chest CT studies consisting of the most recent prior study of 03/13/2020 and other prior studies of 04/25/2018 and 01/24/2016. TECHNIQUE: Chest CT with IV contrast. 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 This was not present on 01/24/2016 but is present on all of the other prior studies. There is diffuse increased density throughout the airspaces of the remaining right lung in all lobes compared to the prior studies. This may represent diffuse mild airspace disease. There is some dependency to this finding as the increased density is focally slightly greater adjacent to the fissures and posteriorly in the lower lobe. There is no pleural effusion on the left. The hydrothorax contains mottled areas of increased density suggesting there may be hemorrhage or organization within the fluid. There are least 3 stable lung nodules on all unchanged from 01/24/2016 2 in the right upper lobe on image 44 and the 3rd anteriorly in the right lung, likely right middle lobe on image 50. There are no new lung nodules. The thoracic aorta is unremarkable. Cardiac size is enlarged. The heart is displaced into the left hemithorax as a consequence of the pneumonectomy. There is no pericardial effusion. The upper abdomen there are multiple confluent gallbladder calculi near the gallbladder neck. There is no CT evidence of acute cholecystitis. The hepatic parenchyma is homogeneous. Pancreas and spleen are unremarkable. The adrenals and renal upper poles are unremarkable. IMPRESSION: Diffuse mild increased density throughout the remaining right lung when compared to prior studies. This may represent a subtle diffuse airspace disease throughout the right lung. There are 3 stable lung nodules, unchanged from 01/24/2016, likely granulomas. Left pneumonectomy and left hydrothorax which may be organizing. <Electronically signed by Carlos Jeronimo > 10/18/201948
== END ==
LOC: M RAD 17:56
PROVIDERS: ATTEND Internal Medicine Pulmonary Disease
DX: J45.40 Moderate persistent asthma, uncomplicated (principal); R91.8 Other nonspecific abnormal finding of lung field
CPT/HCPCS: 71260; Q9967

== ENCOUNTER → 2021-11-22 | Outpatient (CLI) | payer MEDICARE ==
[~2021-11-22] MED LIST changes: -ISOVUE-370 76% 100ML VIAL As Ordered ONE; -MONT10TA10; +MONT10TA97
[2021-11-22 13:24] LABS: BLOOD UREA NITROGEN 14 MG/DL (7-18); CREATININE FOR GFR 1.09 MG/DL (0.70-1.30); GLOMERULAR FILTRATION RATE > 60.0 (>35)
== END ==
LOC: M LAB 12:30
PROVIDERS: ATTEND Internal Medicine Pulmonary Disease
DX: Z85.118 Personal history of other malignant neoplasm of bronchus and lung (principal)

== ENCOUNTER → 2021-11-26 | Outpatient (CLI) | payer MEDICARE ==
[~2021-11-26] MED LIST changes: +ISOVUE-370 76% 100ML VIAL As Ordered ONE
== END ==
LOC: M RAD 10:45
PROVIDERS: ATTEND Internal Medicine Pulmonary Disease
DX: J45.30 Mild persistent asthma, uncomplicated (principal)
CPT/HCPCS: 71270; Q9967

== ENCOUNTER 2022-07-17 12:59 | Emergency (ER) | payer MEDICARE ==
[~2022-07-17] VITALS: Ht 172.7 cm; Wt 34.2 kg
[~2022-07-17 12:59] MED LIST changes: +CLOP75TA99 PO; -ISOVUE-370 76% 100ML VIAL As Ordered ONE; +LEVO1TAB40 PO; -LEVO750T13 PO; -PLAV1TAB2 PO
[2022-07-17 13:02] VITALS: BP 104/54
== END 2022-07-18 01:02 | disposition left against medical advice (07) ==
LOC: M ED 12:59
DX: Z53.21 Procedure and treatment not carried out due to patient leaving prior to being seen by health care provider (principal)

== ENCOUNTER → 2022-12-23 | Outpatient (CLI) | payer MEDICARE | LOC: M RAD 14:40 | PROVIDERS: ATTEND Internal Medicine Pulmonary Disease | DX: J45.40 Moderate persistent asthma, uncomplicated (principal) ==

== ENCOUNTER 2023-01-24 19:03 | Emergency (ER) | payer MEDICARE ==
[~2023-01-24] VITALS: Ht 172.7 cm; Wt 72.7 kg
[2023-01-24 22:25] VITALS: BP 109/65; TEMP 98.3; O2SAT 97
== END 2023-01-24 22:29 | disposition home or self-care (01) ==
LOC: M ED 19:03
DX: S43.51XA Sprain of right acromioclavicular joint, initial encounter (principal); W01.0XXA Fall on same level from slipping, tripping and stumbling without subsequent striking against object, initial encounter; Y92.009 Unspecified place in unspecified non-institutional (private) residence as the place of occurrence of the external cause; Y93.01 Activity, walking, marching and hiking; Y99.8 Other external cause status; J44.9 Chronic obstructive pulmonary disease, unspecified; K21.9 Gastro-esophageal reflux disease without esophagitis; N40.0 Benign prostatic hyperplasia without lower urinary tract symptoms; Z86.73 Personal history of transient ischemic attack (TIA), and cerebral infarction without residual deficits; Z79.02 Long term (current) use of antithrombotics/antiplatelets; Z79.899 Other long term (current) drug therapy; Z79.82 Long term (current) use of aspirin

== ENCOUNTER → 2023-01-29 | Outpatient (CLI) | payer MEDICARE ==
[2023-01-29 13:25] LABS: BLOOD UREA NITROGEN 15 MG/DL (9-23); CREATININE FOR GFR 0.95 MG/DL (0.70-1.30); GLOMERULAR FILTRATION RATE > 60.0 (>35)
== END ==
LOC: M LAB 12:07
PROVIDERS: ATTEND Thoracic Surgery (Cardiothoracic Vascular Surgery)
DX: Z01.818 Encounter for other preprocedural examination (principal)

== ENCOUNTER → 2023-02-01 | Outpatient (CLI) | payer MEDICARE ==
[~2023-02-01] MED LIST changes: +ISOVUE-370 76% 100ML VIAL As Ordered ONE
== END ==
LOC: M RAD 09:32
PROVIDERS: ATTEND Thoracic Surgery (Cardiothoracic Vascular Surgery)
DX: R22.2 Localized swelling, mass and lump, trunk (principal)
CPT/HCPCS: 71260; Q9967

== ENCOUNTER → 2023-02-19 | Outpatient (CLI) | payer MEDICARE ==
[~2023-02-19] MED LIST changes: -ISOVUE-370 76% 100ML VIAL As Ordered ONE
[2023-02-19 10:49] LABS: PLATELET COUNT, AUTOMATED 236 10^3/uL (150-450)
[2023-02-19 10:59] LABS: INR 0.98; PARTIAL THROMBOPLASTIN TIME 25.9 SECONDS (24.8-34.2); PROTHROMBIN TIME 13.2 SECONDS (12.5-14.5)
== END ==
LOC: M LAB 10:17
PROVIDERS: ATTEND Thoracic Surgery (Cardiothoracic Vascular Surgery)
DX: Z01.812 Encounter for preprocedural laboratory examination (principal); D49.2 Neoplasm of unspecified behavior of bone, soft tissue, and skin

== ENCOUNTER → 2023-02-22 | Outpatient (CLI) | payer MEDICARE ==
[~2023-02-22] MED LIST changes: +LIDOCAINE 1% MDV 20ML VIAL As Ordered ONE
[2023-02-22 08:35] VITALS: TEMP 97.8
[2023-02-22 09:45] VITALS: BP 125/76; O2SAT 98
== END ==
LOC: M IRPRO 08:26
PROVIDERS: ATTEND Thoracic Surgery (Cardiothoracic Vascular Surgery)
DX: R91.8 Other nonspecific abnormal finding of lung field (principal); I10 Essential (primary) hypertension

== ENCOUNTER → 2023-03-09 | Outpatient (CLI) | payer MEDICARE ==
[~2023-03-09] MED LIST changes: -LIDOCAINE 1% MDV 20ML VIAL As Ordered ONE
== END ==
LOC: M WUC 13:42
PROVIDERS: ATTEND Physician Assistant
DX: M25.551 Pain in right hip (principal)

== ENCOUNTER 2023-06-18 23:47 | Inpatient (IN) | payer MEDICARE ==
[~2023-06-18] VITALS: Ht 172.7 cm; Wt 68.8 kg
[~2023-06-18 23:47] MED LIST changes: -DORZ2SOL4 OU; -DOXY100C3 PO
[2023-06-19] VITALS (27 sets, daily range): BP systolic 85–112; BP diastolic 53–73; TEMP 97.9–99.5; O2SAT 89–97
[2023-06-19 00:10] LABS: ABG BASE EXCESS -2.7 (-2.0-2.0); ABG HCO3 22.9 MMOL/L (22.0-26.0); ABG O2 SATURATION 97.9 % (95.0-99.0); ABG PARTIAL PRESSURE CO2 42.6 mmHg (35.0-45.0); ABG PARTIAL PRESSURE O2 112.9 mmHg (75.0-100.0); ABG STANDARD HCO3 22.3 MMOL/L. (22.0-26.0); ABG TOTAL CO2 24.2 MMOL/L (23.0-31.0); ABG pH (ARTERIAL) 7.349 UNITS (7.350-7.450)
[2023-06-19] MEDS: IPRATROPIUM 0.5MG/ALBUTEROL 2.5MG INH SOL UD 3ML (DUONEB) NEB PRN (00:13)
[2023-06-19] MEDS ORDERED: FUROSEMIDE 100MG/10ML VIAL IV ONE (00:30)
[2023-06-19 00:52] LABS: BASO % 0.2 % (0.0-1.0); EOS % 0.1 % (0.0-3.0); HEMOGLOBIN 15.4 g/dl (13.5-17.5); LYMPH # 0.3 10^3/uL (1.5-5.0); LYMPH % 1.7 % (24.0-44.0); MEAN CORPUSCULAR HEMOGLOBIN 32.2 pg (27.0-33.0); MEAN CORPUSCULAR HGB CONC 34.2 g/dl (32.0-36.5); MEAN CORPUSCULAR VOLUME 93.9 fl (80.0-96.0); MONO # 0.8 10^3/uL (0.0-0.8); MONO % 4.2 % (2.0-8.0); NEUTROPHILS # 17.8 10^3/uL (1.5-8.5); RED BLOOD COUNT 4.79 10^6/uL (4.30-6.10); WHITE BLOOD COUNT 19.1 10^3/uL (4.0-10.0)
[2023-06-19 01:40] LABS: PLATELET COUNT, AUTOMATED 92 10^3/uL (150-450)
[2023-06-19] MEDS ORDERED: AZITHROMYCIN 250MG TABLET PO ONE (02:00)
[2023-06-19] MEDS ORDERED: cefTRIAXone SOD 1 GM in D5W MINI-BAG PLUS 50 ML IV ONE (02:00)
[2023-06-19 02:08] LABS: ALKALINE PHOSPHATASE 96 U/L (46-116); ALT/SGPT 12 U/L (7.0-40); AST/SGOT 25 U/L (<34); BILIRUBIN,DIRECT 0.6 MG/DL (<0.4); BILIRUBIN,TOTAL 1.5 MG/DL (0.3-1.2); BLOOD UREA NITROGEN 21 MG/DL (9-23); CARBON DIOXIDE LEVEL 28 MMOL/L (20-31); CHLORIDE LEVEL 101 MMOL/L (98-107); CK-MB VALUE MASS < 1.0 NG/ML (<3.6); CPK CREATINE PHOSPHOKINASE 48 U/L (46-171); CREATININE FOR GFR 1.03 MG/DL (0.70-1.30); GLOMERULAR FILTRATION RATE > 60.0 (>35); GLUCOSE, FASTING 162 MG/DL (74-106); MB/CK RELATIVE INDEX 2.08 (< OR =4); POTASSIUM SERUM 3.1 MMOL/L (3.5-5.1); SODIUM LEVEL 137 MMOL/L (136-145); TOTAL PROTEIN 6.8 G/DL (5.7-8.2)
[2023-06-19] MEDS ORDERED: NS 500 ML IV ONE (02:30)
[2023-06-19] MEDS ORDERED: AZITHROMYCIN INJ 500 MG, VIAL MATE ADAPTER 1 EACH in NS 250 ML IV ONE (02:30)
[2023-06-19] MEDS ORDERED: NS 1,000 ML IV ONE ×3 (02:35→06:20)
[2023-06-19 03:37] LABS: CK-MB VALUE MASS < 1.0 NG/ML (<3.6)
[2023-06-19 03:42] LABS: CPK CREATINE PHOSPHOKINASE 59 U/L (46-171); MB/CK RELATIVE INDEX 1.69 (< OR =4)
[2023-06-19 03:47] LABS: PROCALCITONIN 0.41 ng/ml
[2023-06-19 06:05] LABS: CPK CREATINE PHOSPHOKINASE 54 U/L (46-171); MB/CK RELATIVE INDEX 1.85 (< OR =4)
[2023-06-19] MEDS: IPRATROPIUM 0.5MG/ALBUTEROL 2.5MG INH SOL UD 3ML (DUONEB) NEB SCH ×4 (08:00→20:35)
[2023-06-19] MEDS ORDERED: MED REC IN PROGRESS XX SCH (08:45)
[2023-06-19] MEDS ORDERED: FLUTICASONE PROP 0.05% NASAL SPRAY 16 GM (FLONASE) NARES SCH (09:00)
[2023-06-19] MEDS ORDERED: ENOXAPARIN 30MG/0.3ML SYRINGE (J1650 PER 10MG) SC SCH (09:00)
[2023-06-19] MEDS ORDERED: POTASSIUM CHLORIDE 10MEQ SR TABLET PO ONE (09:00)
[2023-06-19 09:30] LABS: LDH LACTATE DEHYDROGENASE 241 U/L (120-246)
[2023-06-19 09:40] LABS: ALBUMIN 2.7 G/DL (3.2-5.2); ALKALINE PHOSPHATASE 84 U/L (46-116); ALT/SGPT 13 U/L (7.0-40); AST/SGOT 26 U/L (<34); BILIRUBIN,TOTAL 1.1 MG/DL (0.3-1.2); BLOOD UREA NITROGEN 18 MG/DL (9-23); CALCIUM LEVEL 7.8 MG/DL (8.3-10.6); CARBON DIOXIDE LEVEL 27 MMOL/L (20-31); CHLORIDE LEVEL 106 MMOL/L (98-107); CHOLESTEROL LEVEL 130 MG/DL (<200); CREATININE FOR GFR 1.03 MG/DL (0.70-1.30); GLOMERULAR FILTRATION RATE > 60.0 (>35); GLUCOSE, FASTING 147 MG/DL (74-106); PHOSPHORUS LEVEL 4.4 MG/DL (2.4-5.1); POTASSIUM SERUM 3.2 MMOL/L (3.5-5.1); SODIUM LEVEL 142 MMOL/L (136-145); TOTAL PROTEIN 6.1 G/DL (5.7-8.2); TRIGLYCERIDES LEVEL 44 MG/DL (<150)
[2023-06-19] MEDS: PANTOPRAZOLE 40MG VIAL IV SCH (10:50)
[2023-06-19] MEDS ORDERED: DORZ2SOL4 OU (11:08)
[2023-06-19] MEDS ORDERED: DOXY100C3 PO (11:08)
[2023-06-19] MEDS: SYMBICORT 160/4.5MCG INHALER 6GM INH SCH ×2 (11:24→20:36)
[2023-06-19] MEDS: methylPREDNISolone 125MG 2ML VIAL IV SCH ×2 (12:21→17:32)
[2023-06-19 12:31] LABS: CK-MB VALUE MASS < 1.0 NG/ML (<3.6)
[2023-06-19 12:32] LABS: CPK CREATINE PHOSPHOKINASE 52 U/L (46-171); MB/CK RELATIVE INDEX 1.92 (< OR =4)
[2023-06-19] MEDS ORDERED: NS 1,000 ML IV SCH (14:00)
[2023-06-19] MEDS: CLOPIDOGREL 75 MG TAB PO SCH (14:19)
[2023-06-19] MEDS: LATANOPROST 0.005% OPHTH SOLN 2.5 ML OU SCH (21:36)
[2023-06-19] MEDS ORDERED: RAMELTEON 8 MG TAB (ROZEREM) PO STA (22:10)
[2023-06-19] MEDS ORDERED: diphenhydrAMINE 50MG CAP PO STA (22:15)
[2023-06-20] VITALS (67 sets, daily range): BP systolic 85–139; BP diastolic 51–98; TEMP 98.2–98.5; O2SAT 80–99
[2023-06-20] MEDS: methylPREDNISolone 125MG 2ML VIAL IV SCH ×4 (00:02→18:09)
[2023-06-20] MEDS: cefTRIAXone SOD 1 GM in D5W MINI-BAG PLUS 50 ML IV SCH (01:32)
[2023-06-20 02:32] LABS: ABG pH (ARTERIAL) 7.312 UNITS (7.350-7.450)
[2023-06-20 02:33] LABS: ABG BASE EXCESS -4.6 (-2.0-2.0); ABG HCO3 21.5 MMOL/L (22.0-26.0); ABG O2 SATURATION 89.6 % (95.0-99.0); ABG PARTIAL PRESSURE CO2 43.5 mmHg (35.0-45.0); ABG PARTIAL PRESSURE O2 63.2 mmHg (75.0-100.0); ABG STANDARD HCO3 20.5 MMOL/L. (22.0-26.0); ABG TOTAL CO2 22.8 MMOL/L (23.0-31.0)
[2023-06-20] MEDS ORDERED: LEVALBUTEROL 1.25MG 0.5ML CONCENTRATE NEB INH PRN (03:00)
[2023-06-20] MEDS ORDERED: IPRATROPIUM 0.5MG/ALBUTEROL 2.5MG INH SOL UD 3ML (DUONEB) NEB ONE (03:00)
[2023-06-20 05:15] LABS: HEMATOCRIT 41.1 % (42.0-52.0); HEMOGLOBIN 13.5 g/dl (13.5-17.5); MEAN CORPUSCULAR HEMOGLOBIN 31.5 pg (27.0-33.0); MEAN CORPUSCULAR HGB CONC 32.8 g/dl (32.0-36.5); RED BLOOD COUNT 4.28 10^6/uL (4.30-6.10); WHITE BLOOD COUNT 13.8 10^3/uL (4.0-10.0)
[2023-06-20 05:22] LABS: PLATELET COUNT, AUTOMATED 89 10^3/uL (150-450)
[2023-06-20 05:31] LABS: ALBUMIN 2.8 G/DL (3.2-5.2); BLOOD UREA NITROGEN 23 MG/DL (9-23); CALCIUM LEVEL 8.4 MG/DL (8.3-10.6); CARBON DIOXIDE LEVEL 25 MMOL/L (20-31); CHLORIDE LEVEL 105 MMOL/L (98-107); GLOMERULAR FILTRATION RATE > 60.0 (>35); GLUCOSE, FASTING 165 MG/DL (74-106); MAGNESIUM LEVEL 1.8 MG/DL (1.8-2.4); PHOSPHORUS LEVEL 4.3 MG/DL (2.4-5.1); POTASSIUM SERUM 3.8 MMOL/L (3.5-5.1); SODIUM LEVEL 139 MMOL/L (136-145)
[2023-06-20 06:02] LABS: ABG BASE EXCESS -3.2 (-2.0-2.0); ABG HCO3 23.5 MMOL/L (22.0-26.0); ABG O2 SATURATION 96.7 % (95.0-99.0); ABG PARTIAL PRESSURE CO2 48.3 mmHg (35.0-45.0); ABG PARTIAL PRESSURE O2 97.1 mmHg (75.0-100.0); ABG STANDARD HCO3 21.8 MMOL/L. (22.0-26.0); ABG pH (ARTERIAL) 7.305 UNITS (7.350-7.450)
[2023-06-20] MEDS: SYMBICORT 160/4.5MCG INHALER 6GM INH SCH ×2 (07:35→20:09)
[2023-06-20] MEDS: IPRATROPIUM 0.5MG/ALBUTEROL 2.5MG INH SOL UD 3ML (DUONEB) NEB SCH ×3 (07:35→20:09)
[2023-06-20] MEDS: PANTOPRAZOLE 40MG VIAL IV SCH (08:36)
[2023-06-20] MEDS: AZITHROMYCIN 250MG TABLET PO SCH (08:37)
[2023-06-20] MEDS: CLOPIDOGREL 75 MG TAB PO SCH (08:37)
[2023-06-20] MEDS ORDERED: KCL 10MEQ/100ML SWI (KRUN) 10 MEQ in IV 1 EA IV ONE (08:45)
[2023-06-20] MEDS ORDERED: MAG SULF 1GM/100ML (MAG RUN) 1 GM in IV 1 EA IV ONE (08:45)
[2023-06-20] MEDS ORDERED: DIGOXIN INJ 0.5 MG/2 ML AMP IV SCH (10:00)
[2023-06-20] MEDS ORDERED: SUCCINYLCHOLINE INJ 200MG/10ML VIAL IV STA (11:36)
[2023-06-20] MEDS ORDERED: ETOMIDATE INJ 20MG/10ML VIAL IV STA (11:36)
[2023-06-20] MEDS ORDERED: MIDAZOLAM INJ 2MG/2ML VIAL IV STA (12:14)
[2023-06-20] MEDS ORDERED: MIDAZOLAM INJ 2MG/2ML VIAL As Ordered ONE (12:14)
[2023-06-20] MEDS: MIDAZOLAM 100MG/100ML-0.9%NACL 100 MG in IV 1 EA IV SCH (12:15)
[2023-06-20] MEDS ORDERED: MIDAZOLAM INJ 2MG/2ML VIAL IV ONE ×2 (13:00→13:45)
[2023-06-20] MEDS ORDERED: CETACAINE SPRAY 5GM TOP ONE (13:00)
[2023-06-20] MEDS ORDERED: NOREPINEPHRINE 4MG IN D5 250ML 4 MG in IV 1 EA IV SCH ×2 (13:00)
[2023-06-20] MEDS: MORPHINE 2 MG/ML 1ML VIAL IV PRN (13:17)
[2023-06-20 13:46] LABS: CK-MB VALUE MASS 2.5 NG/ML (<3.6)
[2023-06-20 13:49] LABS: MB/CK RELATIVE INDEX 3.2 (< OR =4)
[2023-06-20 14:55] LABS: ABG HCO3 24.6 MMOL/L (22.0-26.0); ABG O2 SATURATION 98.9 % (95.0-99.0); ABG PARTIAL PRESSURE CO2 49.6 mmHg (35.0-45.0); ABG PARTIAL PRESSURE O2 146.1 mmHg (75.0-100.0); ABG STANDARD HCO3 22.8 MMOL/L. (22.0-26.0); ABG TOTAL CO2 26.2 MMOL/L (23.0-31.0); ABG pH (ARTERIAL) 7.314 UNITS (7.350-7.450)
[2023-06-20] MEDS: DOBUTamine HCL 500,000 MCG in IV 1 EA IV SCH (17:33)
[2023-06-20] MEDS: LATANOPROST 0.005% OPHTH SOLN 2.5 ML OU SCH (22:02)
[2023-06-21] VITALS (54 sets, daily range): BP systolic 85–125; BP diastolic 53–78; TEMP 98–99.3; O2SAT 94–98
[2023-06-21] MEDS: methylPREDNISolone 125MG 2ML VIAL IV SCH ×5 (00:10→23:49)
[2023-06-21] MEDS: cefTRIAXone SOD 1 GM in D5W MINI-BAG PLUS 50 ML IV SCH (02:57)
[2023-06-21] MEDS: MIDAZOLAM 100MG/100ML-0.9%NACL 100 MG in IV 1 EA IV SCH (03:22)
[2023-06-21 04:30] LABS: HEMATOCRIT 35.8 % (42.0-52.0); MEAN CORPUSCULAR HEMOGLOBIN 32.7 pg (27.0-33.0); MEAN CORPUSCULAR HGB CONC 33.5 g/dl (32.0-36.5); MEAN CORPUSCULAR VOLUME 97.5 fl (80.0-96.0); RED BLOOD COUNT 3.67 10^6/uL (4.30-6.10); WHITE BLOOD COUNT 6.8 10^3/uL (4.0-10.0)
[2023-06-21 04:31] LABS: PLATELET COUNT, AUTOMATED 81 10^3/uL (150-450)
[2023-06-21 05:16] LABS: ALBUMIN 2.5 G/DL (3.2-5.2); BLOOD UREA NITROGEN 27 MG/DL (9-23); CALCIUM LEVEL 8.6 MG/DL (8.3-10.6); CARBON DIOXIDE LEVEL 30 MMOL/L (20-31); CHLORIDE LEVEL 108 MMOL/L (98-107); CREATININE FOR GFR 0.74 MG/DL (0.70-1.30); GLOMERULAR FILTRATION RATE > 60.0 (>35); GLUCOSE, FASTING 167 MG/DL (74-106); MAGNESIUM LEVEL 2.4 MG/DL (1.8-2.4); PHOSPHORUS LEVEL 2.3 MG/DL (2.4-5.1); POTASSIUM SERUM 4.2 MMOL/L (3.5-5.1); SODIUM LEVEL 142 MMOL/L (136-145)
[2023-06-21 05:37] LABS: ABG BASE EXCESS 1.7 (-2.0-2.0); ABG HCO3 27.7 MMOL/L (22.0-26.0); ABG O2 SATURATION 97.8 % (95.0-99.0); ABG PARTIAL PRESSURE CO2 49.2 mmHg (35.0-45.0); ABG TOTAL CO2 29.3 MMOL/L (23.0-31.0); ABG pH (ARTERIAL) 7.369 UNITS (7.350-7.450)
[2023-06-21] MEDS: IPRATROPIUM 0.5MG/ALBUTEROL 2.5MG INH SOL UD 3ML (DUONEB) NEB SCH ×4 (07:25→20:36)
[2023-06-21] MEDS: SYMBICORT 160/4.5MCG INHALER 6GM INH SCH ×2 (07:26→20:36)
[2023-06-21] MEDS ORDERED: DIGOXIN INJ 0.5 MG/2 ML AMP IV SCH (09:00)
[2023-06-21] MEDS: AZITHROMYCIN 250MG TABLET PO SCH (09:33)
[2023-06-21] MEDS: PANTOPRAZOLE 40MG VIAL IV SCH (09:33)
[2023-06-21] MEDS ORDERED: CETACAINE SPRAY 5GM ONE (14:24)
[2023-06-21] MEDS: DOBUTamine HCL 500,000 MCG in IV 1 EA IV SCH (17:12)
[2023-06-21] MEDS: LATANOPROST 0.005% OPHTH SOLN 2.5 ML OU SCH (21:22)
[2023-06-22] VITALS (42 sets, daily range): BP systolic 100–122; BP diastolic 56–76; TEMP 97.6–99.2; O2SAT 95–97
[2023-06-22] MEDS: cefTRIAXone SOD 1 GM in D5W MINI-BAG PLUS 50 ML IV SCH (02:38)
[2023-06-22] MEDS: MIDAZOLAM 100MG/100ML-0.9%NACL 100 MG in IV 1 EA IV SCH (03:50)
[2023-06-22 05:09] LABS: HEMATOCRIT 36.7 % (42.0-52.0); HEMOGLOBIN 12.1 g/dl (13.5-17.5); MEAN CORPUSCULAR HEMOGLOBIN 31.7 pg (27.0-33.0); MEAN CORPUSCULAR VOLUME 96.1 fl (80.0-96.0); PLATELET COUNT, AUTOMATED 103 10^3/uL (150-450); RED BLOOD COUNT 3.82 10^6/uL (4.30-6.10); WHITE BLOOD COUNT 9.6 10^3/uL (4.0-10.0)
[2023-06-22 05:44] LABS: ALBUMIN 2.4 G/DL (3.2-5.2); BLOOD UREA NITROGEN 30 MG/DL (9-23); CALCIUM LEVEL 8.6 MG/DL (8.3-10.6); CARBON DIOXIDE LEVEL 32 MMOL/L (20-31); CHLORIDE LEVEL 108 MMOL/L (98-107); GLOMERULAR FILTRATION RATE > 60.0 (>35); GLUCOSE, FASTING 154 MG/DL (74-106); MAGNESIUM LEVEL 2.5 MG/DL (1.8-2.4); POTASSIUM SERUM 4.2 MMOL/L (3.5-5.1); SODIUM LEVEL 142 MMOL/L (136-145)
[2023-06-22 06:19] LABS: ABG BASE EXCESS 3.6 (-2.0-2.0); ABG HCO3 28.1 MMOL/L (22.0-26.0); ABG O2 SATURATION 98.3 % (95.0-99.0); ABG PARTIAL PRESSURE O2 110.7 mmHg (75.0-100.0); ABG STANDARD HCO3 27.7 MMOL/L. (22.0-26.0); ABG TOTAL CO2 29.4 MMOL/L (23.0-31.0); ABG pH (ARTERIAL) 7.443 UNITS (7.350-7.450)
[2023-06-22] MEDS: methylPREDNISolone 125MG 2ML VIAL IV SCH ×3 (06:30→17:11)
[2023-06-22] MEDS: AZITHROMYCIN 250MG TABLET PO SCH (08:03)
[2023-06-22] MEDS: PANTOPRAZOLE 40MG VIAL IV SCH (08:03)
[2023-06-22] MEDS: IPRATROPIUM 0.5MG/ALBUTEROL 2.5MG INH SOL UD 3ML (DUONEB) NEB SCH ×4 (08:26→21:57)
[2023-06-22] MEDS: SYMBICORT 160/4.5MCG INHALER 6GM INH SCH ×2 (08:26→21:57)
[2023-06-22] MEDS ORDERED: CLOPIDOGREL 75 MG TAB PO SCH (09:00)
[2023-06-22] MEDS: MORPHINE 2 MG/ML 1ML VIAL IV PRN ×3 (09:44→15:09)
[2023-06-22] MEDS: DOBUTamine HCL 500,000 MCG in IV 1 EA IV SCH (17:12)
[2023-06-22] MEDS: LATANOPROST 0.005% OPHTH SOLN 2.5 ML OU SCH (20:16)
[2023-06-23] VITALS (34 sets, daily range): BP systolic 110–141; BP diastolic 59–80; TEMP 97.3–99.5; O2SAT 92–97
[2023-06-23] MEDS: cefTRIAXone SOD 1 GM in D5W MINI-BAG PLUS 50 ML IV SCH (01:48)
[2023-06-23] MEDS: methylPREDNISolone 125MG 2ML VIAL IV SCH ×5 (01:48→23:43)
[2023-06-23] MEDS: MORPHINE 2 MG/ML 1ML VIAL IV PRN (02:38)
[2023-06-23] MEDS: MIDAZOLAM 100MG/100ML-0.9%NACL 100 MG in IV 1 EA IV SCH (02:47)
[2023-06-23 04:05] LABS: HEMATOCRIT 37.4 % (42.0-52.0); HEMOGLOBIN 12.3 g/dl (13.5-17.5); MEAN CORPUSCULAR HEMOGLOBIN 31.9 pg (27.0-33.0); MEAN CORPUSCULAR HGB CONC 32.9 g/dl (32.0-36.5); MEAN CORPUSCULAR VOLUME 97.1 fl (80.0-96.0); PLATELET COUNT, AUTOMATED 125 10^3/uL (150-450); RED BLOOD COUNT 3.85 10^6/uL (4.30-6.10); WHITE BLOOD COUNT 7.8 10^3/uL (4.0-10.0)
[2023-06-23 04:31] LABS: ALBUMIN 2.4 G/DL (3.2-5.2); BLOOD UREA NITROGEN 34 MG/DL (9-23); CARBON DIOXIDE LEVEL 34 MMOL/L (20-31); CHLORIDE LEVEL 111 MMOL/L (98-107); CREATININE FOR GFR 0.66 MG/DL (0.70-1.30); GLOMERULAR FILTRATION RATE > 60.0 (>35); GLUCOSE, FASTING 145 MG/DL (74-106); MAGNESIUM LEVEL 2.7 MG/DL (1.8-2.4); PHOSPHORUS LEVEL 2.4 MG/DL (2.4-5.1); POTASSIUM SERUM 4.4 MMOL/L (3.5-5.1); SODIUM LEVEL 148 MMOL/L (136-145)
[2023-06-23 05:22] LABS: ABG BASE EXCESS 6.9 (-2.0-2.0); ABG HCO3 31.7 MMOL/L (22.0-26.0); ABG PARTIAL PRESSURE CO2 45.6 mmHg (35.0-45.0); ABG PARTIAL PRESSURE O2 147.6 mmHg (75.0-100.0); ABG STANDARD HCO3 30.8 MMOL/L. (22.0-26.0); ABG TOTAL CO2 33.1 MMOL/L (23.0-31.0)
[2023-06-23] MEDS: IPRATROPIUM 0.5MG/ALBUTEROL 2.5MG INH SOL UD 3ML (DUONEB) NEB SCH ×4 (07:46→21:10)
[2023-06-23] MEDS: SYMBICORT 160/4.5MCG INHALER 6GM INH SCH ×2 (07:46→21:11)
[2023-06-23] MEDS: PANTOPRAZOLE 40MG VIAL IV SCH (09:33)
[2023-06-23] MEDS: CLOPIDOGREL 75 MG TAB PO SCH (09:33)
[2023-06-23] MEDS: LevoFLOXacin IV 750 MG in IV 1 EA IV SCH (12:05)
[2023-06-23] MEDS: DOBUTamine HCL 500,000 MCG in IV 1 EA IV SCH (18:04)
[2023-06-23] MEDS: LATANOPROST 0.005% OPHTH SOLN 2.5 ML OU SCH (21:40)
[2023-06-24] VITALS (15 sets, daily range): BP systolic 121–148; BP diastolic 69–88; TEMP 97.3–99.2; O2SAT 91–98
[2023-06-24 04:22] LABS: HEMATOCRIT 40.6 % (42.0-52.0); HEMOGLOBIN 13.2 g/dl (13.5-17.5); MEAN CORPUSCULAR HEMOGLOBIN 32.4 pg (27.0-33.0); MEAN CORPUSCULAR HGB CONC 32.5 g/dl (32.0-36.5); MEAN CORPUSCULAR VOLUME 99.5 fl (80.0-96.0); PLATELET COUNT, AUTOMATED 132 10^3/uL (150-450); RED BLOOD COUNT 4.08 10^6/uL (4.30-6.10); WHITE BLOOD COUNT 8.7 10^3/uL (4.0-10.0)
[2023-06-24 04:53] LABS: ALBUMIN 2.6 G/DL (3.2-5.2); BLOOD UREA NITROGEN 36 MG/DL (9-23); CALCIUM LEVEL 9.5 MG/DL (8.3-10.6); CARBON DIOXIDE LEVEL 32 MMOL/L (20-31); CHLORIDE LEVEL 112 MMOL/L (98-107); CREATININE FOR GFR 0.72 MG/DL (0.70-1.30); GLOMERULAR FILTRATION RATE > 60.0 (>35); GLUCOSE, FASTING 132 MG/DL (74-106); MAGNESIUM LEVEL 2.6 MG/DL (1.8-2.4); PHOSPHORUS LEVEL 3.1 MG/DL (2.4-5.1); POTASSIUM SERUM 4.4 MMOL/L (3.5-5.1); SODIUM LEVEL 148 MMOL/L (136-145)
[2023-06-24] MEDS: methylPREDNISolone 125MG 2ML VIAL IV SCH (05:37)
[2023-06-24] MEDS: SYMBICORT 160/4.5MCG INHALER 6GM INH SCH ×2 (07:55→19:30)
[2023-06-24] MEDS: IPRATROPIUM 0.5MG/ALBUTEROL 2.5MG INH SOL UD 3ML (DUONEB) NEB SCH ×2 (07:55→19:30)
[2023-06-24] MEDS: PANTOPRAZOLE 40MG VIAL IV SCH (09:22)
[2023-06-24] MEDS: CLOPIDOGREL 75 MG TAB PO SCH (09:23)
[2023-06-24] MEDS: LevoFLOXacin IV 750 MG in IV 1 EA IV SCH (09:24)
[2023-06-24] MEDS ORDERED: methylPREDNISolone 125MG 2ML VIAL IV SCH (12:00)
[2023-06-24] MEDS: ENOXAPARIN 40MG/0.4ML SYRINGE (J1650 PER 10MG) SC SCH (14:43)
[2023-06-24] MEDS: DOBUTamine HCL 500,000 MCG in IV 1 EA IV SCH (15:56)
[2023-06-24] MEDS: LATANOPROST 0.005% OPHTH SOLN 2.5 ML OU SCH (20:53)
[2023-06-24] MEDS: METOPROLOL TART 12.5 MG PER 1/2 TAB PO SCH (20:53)
[2023-06-25] VITALS (12 sets, daily range): BP systolic 100–126; BP diastolic 55–76; TEMP 98.3–99; O2SAT 90–100
[2023-06-25 04:19] LABS: HEMATOCRIT 36.5 % (42.0-52.0); HEMOGLOBIN 12.1 g/dl (13.5-17.5); MEAN CORPUSCULAR HEMOGLOBIN 32.8 pg (27.0-33.0); MEAN CORPUSCULAR HGB CONC 33.2 g/dl (32.0-36.5); MEAN CORPUSCULAR VOLUME 98.9 fl (80.0-96.0); PLATELET COUNT, AUTOMATED 106 10^3/uL (150-450); RED BLOOD COUNT 3.69 10^6/uL (4.30-6.10); WHITE BLOOD COUNT 8.3 10^3/uL (4.0-10.0)
[2023-06-25 04:42] LABS: ALBUMIN 2.4 G/DL (3.2-5.2); BLOOD UREA NITROGEN 32 MG/DL (9-23); CALCIUM LEVEL 8.6 MG/DL (8.3-10.6); CARBON DIOXIDE LEVEL 34 MMOL/L (20-31); CHLORIDE LEVEL 106 MMOL/L (98-107); CREATININE FOR GFR 0.74 MG/DL (0.70-1.30); GLOMERULAR FILTRATION RATE > 60.0 (>35); GLUCOSE, FASTING 109 MG/DL (74-106); MAGNESIUM LEVEL 2.4 MG/DL (1.8-2.4); PHOSPHORUS LEVEL 3.2 MG/DL (2.4-5.1); POTASSIUM SERUM 4.2 MMOL/L (3.5-5.1); SODIUM LEVEL 142 MMOL/L (136-145)
[2023-06-25] MEDS: CLOPIDOGREL 75 MG TAB PO SCH (08:05)
[2023-06-25] MEDS: METOPROLOL TART 12.5 MG PER 1/2 TAB PO SCH ×2 (08:06→20:59)
[2023-06-25] MEDS: PANTOPRAZOLE 40MG VIAL IV SCH (08:06)
[2023-06-25] MEDS: ENOXAPARIN 40MG/0.4ML SYRINGE (J1650 PER 10MG) SC SCH (08:06)
[2023-06-25] MEDS: DOCUSATE SODIUM 100MG CAPSULE PO SCH (09:00)
[2023-06-25] MEDS: MIRALAX *UNIT DOSE* 17GM PACKET PO SCH (09:00)
[2023-06-25] MEDS: IPRATROPIUM 0.5MG/ALBUTEROL 2.5MG INH SOL UD 3ML (DUONEB) NEB SCH ×2 (09:01→20:48)
[2023-06-25] MEDS: SYMBICORT 160/4.5MCG INHALER 6GM INH SCH ×2 (09:01→20:48)
[2023-06-25] MEDS: LevoFLOXacin IV 750 MG in IV 1 EA IV SCH (10:32)
[2023-06-25] MEDS ORDERED: FUROSEMIDE 20MG/2ML VIAL IV ONE (13:00)
[2023-06-25] MEDS: LACTULOSE 20GM/30ML SYRUP UDC PO ONE ×2 (16:46→17:12)
[2023-06-25] MEDS: SENNA 8.6 MG TAB (SENOKOT) PO SCH (21:00)
[2023-06-25] MEDS: LATANOPROST 0.005% OPHTH SOLN 2.5 ML OU SCH (21:00)
[2023-06-26] VITALS (27 sets, daily range): BP systolic 91–102; BP diastolic 51–59; TEMP 98.2–98.9; O2SAT 85–99
[2023-06-26 04:40] LABS: HEMATOCRIT 37.8 % (42.0-52.0); HEMOGLOBIN 12.1 g/dl (13.5-17.5); MEAN CORPUSCULAR HEMOGLOBIN 31.7 pg (27.0-33.0); RED BLOOD COUNT 3.82 10^6/uL (4.30-6.10); WHITE BLOOD COUNT 6.8 10^3/uL (4.0-10.0)
[2023-06-26 04:57] LABS: PLATELET COUNT, AUTOMATED 60 10^3/uL (150-450)
[2023-06-26 05:03] LABS: ALBUMIN 2.2 G/DL (3.2-5.2); BLOOD UREA NITROGEN 31 MG/DL (9-23); CALCIUM LEVEL 8.2 MG/DL (8.3-10.6); CARBON DIOXIDE LEVEL 35 MMOL/L (20-31); CHLORIDE LEVEL 104 MMOL/L (98-107); CREATININE FOR GFR 0.72 MG/DL (0.70-1.30); GLOMERULAR FILTRATION RATE > 60.0 (>35); GLUCOSE, FASTING 92 MG/DL (74-106); MAGNESIUM LEVEL 2.3 MG/DL (1.8-2.4); PHOSPHORUS LEVEL 3.1 MG/DL (2.4-5.1); SODIUM LEVEL 140 MMOL/L (136-145)
[2023-06-26] MEDS: IPRATROPIUM 0.5MG/ALBUTEROL 2.5MG INH SOL UD 3ML (DUONEB) NEB SCH ×2 (07:21→18:57)
[2023-06-26] MEDS: SYMBICORT 160/4.5MCG INHALER 6GM INH SCH ×2 (07:21→18:57)
[2023-06-26 08:56] LABS: PLATELET COUNT, AUTOMATED 55 10^3/uL (150-450)
[2023-06-26] MEDS: METOPROLOL TART 12.5 MG PER 1/2 TAB PO SCH ×2 (09:00→21:04)
[2023-06-26] MEDS: MIRALAX *UNIT DOSE* 17GM PACKET PO SCH (09:27)
[2023-06-26] MEDS: PANTOPRAZOLE 40MG VIAL IV SCH (09:27)
[2023-06-26] MEDS: DOCUSATE SODIUM 100MG CAPSULE PO SCH (09:27)
[2023-06-26] MEDS: LevoFLOXacin IV 750 MG in IV 1 EA IV SCH (09:27)
[2023-06-26] MEDS ORDERED: LACTULOSE 20GM/30ML SYRUP UDC PO ONE (13:00)
[2023-06-26] MEDS: SENNA 8.6 MG TAB (SENOKOT) PO SCH (21:04)
[2023-06-26] MEDS: LATANOPROST 0.005% OPHTH SOLN 2.5 ML OU SCH (21:04)
[2023-06-27] VITALS (24 sets, daily range): BP systolic 80–130; BP diastolic 50–70; TEMP 96.9–98.2; O2SAT 81–97
[2023-06-27] MEDS: LevoFLOXacin 750 MG TABLET PO SCH (05:36)
[2023-06-27] MEDS: IPRATROPIUM 0.5MG/ALBUTEROL 2.5MG INH SOL UD 3ML (DUONEB) NEB SCH ×2 (06:00→08:27)
[2023-06-27 07:23] LABS: HEMATOCRIT 36.4 % (42.0-52.0); HEMOGLOBIN 12.1 g/dl (13.5-17.5); MEAN CORPUSCULAR HEMOGLOBIN 32.6 pg (27.0-33.0); MEAN CORPUSCULAR HGB CONC 33.2 g/dl (32.0-36.5); MEAN CORPUSCULAR VOLUME 98.1 fl (80.0-96.0); RED BLOOD COUNT 3.71 10^6/uL (4.30-6.10); WHITE BLOOD COUNT 8.6 10^3/uL (4.0-10.0)
[2023-06-27 07:26] LABS: PLATELET COUNT, AUTOMATED 47 10^3/uL (150-450)
[2023-06-27] MEDS: SYMBICORT 160/4.5MCG INHALER 6GM INH SCH ×2 (07:38→08:27)
[2023-06-27 07:44] LABS: BLOOD UREA NITROGEN 25 MG/DL (9-23); CARBON DIOXIDE LEVEL 34 MMOL/L (20-31); CHLORIDE LEVEL 104 MMOL/L (98-107); CREATININE FOR GFR 0.68 MG/DL (0.70-1.30); GLOMERULAR FILTRATION RATE > 60.0 (>35); GLUCOSE, FASTING 86 MG/DL (74-106); MAGNESIUM LEVEL 2.3 MG/DL (1.8-2.4); POTASSIUM SERUM 4.1 MMOL/L (3.5-5.1); SODIUM LEVEL 139 MMOL/L (136-145)
[2023-06-27] MEDS: MIRALAX *UNIT DOSE* 17GM PACKET PO SCH (08:57)
[2023-06-27] MEDS: PANTOPRAZOLE 40MG VIAL IV SCH (08:57)
[2023-06-27] MEDS: METOPROLOL TART 12.5 MG PER 1/2 TAB PO SCH ×2 (08:58→20:33)
[2023-06-27] MEDS: DOCUSATE SODIUM 100MG CAPSULE PO SCH (08:58)
[2023-06-27] MEDS ORDERED: FUROSEMIDE 20MG/2ML VIAL IV ONE (09:00)
[2023-06-27] MEDS ORDERED: NEOSPORIN OINT 0.9 GM PKT TOP ONE (13:30)
[2023-06-27] MEDS: LATANOPROST 0.005% OPHTH SOLN 2.5 ML OU SCH (20:32)
[2023-06-28] VITALS (16 sets, daily range): BP systolic 90–113; BP diastolic 52–58; TEMP 97.2–98.4; O2SAT 88–100
[2023-06-28] MEDS: IPRATROPIUM 0.5MG/ALBUTEROL 2.5MG INH SOL UD 3ML (DUONEB) NEB SCH ×2 (06:00→19:44)
[2023-06-28] MEDS: LevoFLOXacin 750 MG TABLET PO SCH (06:23)
[2023-06-28] MEDS ORDERED: MIDODRINE 5 MG TAB PO SCH (08:00)
[2023-06-28] MEDS: OMEPRAZOLE 20MG CAP PO SCH (08:39)
[2023-06-28] MEDS: METOPROLOL TART 12.5 MG PER 1/2 TAB PO SCH ×2 (08:39→20:13)
[2023-06-28] MEDS: MIRALAX *UNIT DOSE* 17GM PACKET PO SCH (08:39)
[2023-06-28] MEDS: DOCUSATE SODIUM 100MG CAPSULE PO SCH (08:39)
[2023-06-28] MEDS: SYMBICORT 160/4.5MCG INHALER 6GM INH SCH ×2 (09:34→19:44)
[2023-06-28] MEDS: MIDODRINE 5 MG TAB PO SCH ×2 (13:27→16:59)
[2023-06-28 13:42] LABS: BASO % 0.3 % (0.0-1.0); EOS # 0.3 10^3/uL (0.0-0.5); EOS % 2.6 % (0.0-3.0); HEMATOCRIT 36.7 % (42.0-52.0); HEMOGLOBIN 12.5 g/dl (13.5-17.5); LYMPH # 0.3 10^3/uL (1.5-5.0); LYMPH % 2.6 % (24.0-44.0); MEAN CORPUSCULAR HEMOGLOBIN 32.5 pg (27.0-33.0); MEAN CORPUSCULAR HGB CONC 34.1 g/dl (32.0-36.5); MEAN CORPUSCULAR VOLUME 95.3 fl (80.0-96.0); MONO # 0.5 10^3/uL (0.0-0.8); MONO % 4.3 % (2.0-8.0); NEUTROPHILS # 9.7 10^3/uL (1.5-8.5); NEUTROPHILS % 88.3 % (36.0-66.0); RED BLOOD COUNT 3.85 10^6/uL (4.30-6.10)
[2023-06-28 13:43] LABS: PLATELET COUNT, AUTOMATED 68 10^3/uL (150-450)
[2023-06-28 14:08] LABS: BLOOD UREA NITROGEN 21 MG/DL (9-23); CALCIUM LEVEL 8.4 MG/DL (8.3-10.6); CARBON DIOXIDE LEVEL 32 MMOL/L (20-31); CHLORIDE LEVEL 104 MMOL/L (98-107); CREATININE FOR GFR 0.66 MG/DL (0.70-1.30); GLOMERULAR FILTRATION RATE > 60.0 (>35); GLUCOSE, FASTING 102 MG/DL (74-106); POTASSIUM SERUM 4.2 MMOL/L (3.5-5.1); SODIUM LEVEL 139 MMOL/L (136-145)
[2023-06-28] MEDS: LATANOPROST 0.005% OPHTH SOLN 2.5 ML OU SCH (20:13)
[2023-06-29] VITALS (7 sets, daily range): BP systolic 88–113; BP diastolic 50–58; TEMP 96.9–97.9; O2SAT 94–99
[2023-06-29] MEDS: LevoFLOXacin 750 MG TABLET PO SCH (05:39)
[2023-06-29 06:12] LABS: BASO % 0.2 % (0.0-1.0); EOS # 0.4 10^3/uL (0.0-0.5); EOS % 3.2 % (0.0-3.0); HEMOGLOBIN 12.1 g/dl (13.5-17.5); LYMPH # 0.3 10^3/uL (1.5-5.0); LYMPH % 3.1 % (24.0-44.0); MEAN CORPUSCULAR HEMOGLOBIN 32.3 pg (27.0-33.0); MEAN CORPUSCULAR HGB CONC 33.6 g/dl (32.0-36.5); MONO # 0.7 10^3/uL (0.0-0.8); MONO % 6.1 % (2.0-8.0); NEUTROPHILS # 9.2 10^3/uL (1.5-8.5); NEUTROPHILS % 85.5 % (36.0-66.0); RED BLOOD COUNT 3.75 10^6/uL (4.30-6.10); WHITE BLOOD COUNT 10.8 10^3/uL (4.0-10.0)
[2023-06-29 06:14] LABS: PLATELET COUNT, AUTOMATED 70 10^3/uL (150-450)
[2023-06-29 06:29] LABS: BLOOD UREA NITROGEN 15 MG/DL (9-23); CALCIUM LEVEL 8.4 MG/DL (8.3-10.6); CARBON DIOXIDE LEVEL 32 MMOL/L (20-31); CHLORIDE LEVEL 104 MMOL/L (98-107); CREATININE FOR GFR 0.71 MG/DL (0.70-1.30); GLOMERULAR FILTRATION RATE > 60.0 (>35); GLUCOSE, FASTING 104 MG/DL (74-106); POTASSIUM SERUM 4.1 MMOL/L (3.5-5.1); SODIUM LEVEL 139 MMOL/L (136-145)
[2023-06-29] MEDS: SYMBICORT 160/4.5MCG INHALER 6GM INH SCH ×2 (08:18→20:22)
[2023-06-29] MEDS: IPRATROPIUM 0.5MG/ALBUTEROL 2.5MG INH SOL UD 3ML (DUONEB) NEB SCH ×2 (08:18→20:21)
[2023-06-29] MEDS: MIRALAX *UNIT DOSE* 17GM PACKET PO SCH (09:00)
[2023-06-29] MEDS: METOPROLOL TART 12.5 MG PER 1/2 TAB PO SCH ×2 (09:00→20:52)
[2023-06-29] MEDS: OMEPRAZOLE 20MG CAP PO SCH ×2 (09:11→20:39)
[2023-06-29] MEDS: DOCUSATE SODIUM 100MG CAPSULE PO SCH (09:11)
[2023-06-29 12:35] LABS: PROCALCITONIN 0.11 ng/ml
[2023-06-29] MEDS: LATANOPROST 0.005% OPHTH SOLN 2.5 ML OU SCH (20:39)
[2023-06-30] VITALS: BP 100/59; TEMP 98.3; O2SAT 94
[2023-06-30 03:49] VITALS: BP 106/54; TEMP 97.8; O2SAT 95
[2023-06-30] MEDS: LevoFLOXacin 750 MG TABLET PO SCH (05:44)
[2023-06-30 06:06] LABS: BASO % 0.3 % (0.0-1.0); EOS # 0.3 10^3/uL (0.0-0.5); EOS % 2.7 % (0.0-3.0); HEMATOCRIT 36.9 % (42.0-52.0); HEMOGLOBIN 12.1 g/dl (13.5-17.5); LYMPH # 0.4 10^3/uL (1.5-5.0); LYMPH % 3.7 % (24.0-44.0); MEAN CORPUSCULAR HEMOGLOBIN 31.9 pg (27.0-33.0); MEAN CORPUSCULAR HGB CONC 32.8 g/dl (32.0-36.5); MEAN CORPUSCULAR VOLUME 97.4 fl (80.0-96.0); MONO # 0.6 10^3/uL (0.0-0.8); MONO % 6.1 % (2.0-8.0); NEUTROPHILS # 8.8 10^3/uL (1.5-8.5); NEUTROPHILS % 85.7 % (36.0-66.0); RED BLOOD COUNT 3.79 10^6/uL (4.30-6.10); WHITE BLOOD COUNT 10.3 10^3/uL (4.0-10.0)
[2023-06-30 06:15] LABS: PLATELET COUNT, AUTOMATED 83 10^3/uL (150-450)
[2023-06-30 06:25] LABS: BLOOD UREA NITROGEN 14 MG/DL (9-23); CALCIUM LEVEL 8.2 MG/DL (8.3-10.6); CARBON DIOXIDE LEVEL 33 MMOL/L (20-31); CHLORIDE LEVEL 104 MMOL/L (98-107); CREATININE FOR GFR 0.74 MG/DL (0.70-1.30); GLOMERULAR FILTRATION RATE > 60.0 (>35); GLUCOSE, FASTING 101 MG/DL (74-106); POTASSIUM SERUM 3.8 MMOL/L (3.5-5.1); SODIUM LEVEL 140 MMOL/L (136-145)
[2023-06-30 08:00] VITALS: BP 102/62; TEMP 96.8; O2SAT 100
[2023-06-30] MEDS: IPRATROPIUM 0.5MG/ALBUTEROL 2.5MG INH SOL UD 3ML (DUONEB) NEB SCH ×2 (08:26→21:38)
[2023-06-30] MEDS: SYMBICORT 160/4.5MCG INHALER 6GM INH SCH ×2 (08:26→21:37)
[2023-06-30] MEDS: DOCUSATE SODIUM 100MG CAPSULE PO SCH (08:38)
[2023-06-30] MEDS: MIRALAX *UNIT DOSE* 17GM PACKET PO SCH (08:38)
[2023-06-30 08:39] LABS: IRON (FE) 34 UG/DL (65-175); PERCENT SATURATION 14.7 % (19.7-50.0); TOTAL IRON BINDING CAPACITY 232 UG/DL (250-425)
[2023-06-30 08:42] LABS: FERRITIN 309.9 NG/ML (10.5-307.3); VITAMIN B12 LEVEL 331 PG/ML (211-911)
[2023-06-30] MEDS ORDERED: DAPAGLIFLOZIN PROPANEDIOL 10MG TABLET (FARXIGA) PO SCH (09:00)
[2023-06-30] MEDS: DORZOLAMIDE 2% OPHTH SOLN 10 ML BTL OU SCH ×2 (09:00→22:22)
[2023-06-30] MEDS ORDERED: HYPROMELLOSE 0.3% 150DROP/10G BTL OU PRN (09:50)
[2023-06-30] MEDS ORDERED: FERRIC CARBOXYMALTOSE INJ 750 MG, VIAL MATE ADAPTER 1 EACH in NS 250 ML IV ONE (10:00)
[2023-06-30 11:45] VITALS: BP 131/62; TEMP 97.7; O2SAT 99
[2023-06-30] MEDS: ARTIFICIAL TEARS DROPS 15ML BTL (VISINE DRY RELIEF) OU PRN ×2 (12:25→18:34)
[2023-06-30] MEDS: ramipriL 1.25 MG CAP PO SCH (14:47)
[2023-06-30] MEDS: CLOPIDOGREL 75 MG TAB PO SCH (15:07)
[2023-06-30] MEDS: FUROSEMIDE 10MG PER 1/2 TABLET PO SCH (15:07)
[2023-06-30] MEDS ORDERED: OMEPRAZOLE 20MG CAP PO SCH (21:00)
[2023-06-30 21:40] VITALS: O2SAT 94
[2023-06-30] MEDS: LATANOPROST 0.005% OPHTH SOLN 2.5 ML OU SCH (22:22)
[2023-07-01] MEDS: LevoFLOXacin 750 MG TABLET PO SCH (06:16)
[2023-07-01 06:27] VITALS: BP 101/62; TEMP 97.7; O2SAT 95
[2023-07-01] MEDS: IPRATROPIUM 0.5MG/ALBUTEROL 2.5MG INH SOL UD 3ML (DUONEB) NEB SCH (07:27)
[2023-07-01] MEDS: SYMBICORT 160/4.5MCG INHALER 6GM INH SCH (07:27)
[2023-07-01 07:56] LABS: BASO % 0.2 % (0.0-1.0); EOS # 0.2 10^3/uL (0.0-0.5); EOS % 2.3 % (0.0-3.0); HEMATOCRIT 34.4 % (42.0-52.0); HEMOGLOBIN 11.6 g/dl (13.5-17.5); LYMPH # 0.3 10^3/uL (1.5-5.0); LYMPH % 3.2 % (24.0-44.0); MEAN CORPUSCULAR HEMOGLOBIN 32.3 pg (27.0-33.0); MEAN CORPUSCULAR HGB CONC 33.7 g/dl (32.0-36.5); MEAN CORPUSCULAR VOLUME 95.8 fl (80.0-96.0); MONO # 0.6 10^3/uL (0.0-0.8); MONO % 7.2 % (2.0-8.0); NEUTROPHILS # 7.3 10^3/uL (1.5-8.5); NEUTROPHILS % 84.9 % (36.0-66.0); RED BLOOD COUNT 3.59 10^6/uL (4.30-6.10); WHITE BLOOD COUNT 8.7 10^3/uL (4.0-10.0)
[2023-07-01 08:02] LABS: PLATELET COUNT, AUTOMATED 92 10^3/uL (150-450)
[2023-07-01 08:26] LABS: BLOOD UREA NITROGEN 12 MG/DL (9-23); CALCIUM LEVEL 7.9 MG/DL (8.3-10.6); CARBON DIOXIDE LEVEL 32 MMOL/L (20-31); CHLORIDE LEVEL 102 MMOL/L (98-107); CREATININE FOR GFR 0.64 MG/DL (0.70-1.30); GLOMERULAR FILTRATION RATE > 60.0 (>35); GLUCOSE, FASTING 90 MG/DL (74-106); POTASSIUM SERUM 3.8 MMOL/L (3.5-5.1); SODIUM LEVEL 137 MMOL/L (136-145)
[2023-07-01 08:55] VITALS: BP 101/62
[2023-07-01] MEDS: FUROSEMIDE 10MG PER 1/2 TABLET PO SCH (08:55)
[2023-07-01] MEDS: CLOPIDOGREL 75 MG TAB PO SCH (08:55)
[2023-07-01] MEDS: ramipriL 1.25 MG CAP PO SCH (08:55)
[2023-07-01] MEDS: DOCUSATE SODIUM 100MG CAPSULE PO SCH (08:55)
[2023-07-01] MEDS: DORZOLAMIDE 2% OPHTH SOLN 10 ML BTL OU SCH (08:56)
[2023-07-01] MEDS: MIRALAX *UNIT DOSE* 17GM PACKET PO SCH (08:57)
[2023-07-01] MEDS ORDERED: FURO20TA2 PO (10:42)
[2023-07-01] MEDS ORDERED: OMEP-173 PO (10:42)
[2023-07-01] MEDS ORDERED: ALTA1CAP PO (10:42)
[2023-07-01] MEDS ORDERED: LEVO1TAB40 PO (10:42)
[2023-07-01] MEDS ORDERED: MIRA3350 PO (10:42)
[2023-07-01 12:08] LABS: HEPARIN INDUCED PLATELET ABY 0.152 OD (0.000-0.400); UNFRACTIONATED HEPARIN HI DOSE <1 % (0-20); UNFRACTIONATED HEPARIN LOW DOS <1 % (0-20)
== END 2023-07-01 11:55 | DRG 871 ==
LOC: M ED 23:47 → M ED INP 06-19 07:39 → EEVIPCON 06-19 07:39 → ENRESERV 06-19 08:18 → M ICU 06-19 10:01 → M PCU 06-26 16:25 → M MS5PR 06-30 18:45
PROVIDERS: ADMIT Internal Medicine Pulmonary Disease; ATTEND Internal Medicine
PROC: 0BD98ZX Extraction of Lingula Bronchus, Via Natural or Artificial Opening Endoscopic, Diagnostic (ICD-10-PCS; principal; 2023-06-20)
PROC: 0BH17EZ Insertion of Endotracheal Airway into Trachea, Via Natural or Artificial Opening (ICD-10-PCS; 2023-06-20)
PROC: 02HV33Z Insertion of Infusion Device into Superior Vena Cava, Percutaneous Approach (ICD-10-PCS; 2023-06-20)
PROC: B246ZZZ Ultrasonography of Right and Left Heart (ICD-10-PCS; 2023-06-20)
PROC: 5A1945Z Respiratory Ventilation, 24-96 Consecutive Hours (ICD-10-PCS; 2023-06-20)
DX: A41.9 Sepsis, unspecified organism (principal); J15.9 Unspecified bacterial pneumonia; J96.01 Acute respiratory failure with hypoxia; R57.0 Cardiogenic shock; J96.02 Acute respiratory failure with hypercapnia; I21.A1 Myocardial infarction type 2; R65.21 Severe sepsis with septic shock; I50.23 Acute on chronic systolic (congestive) heart failure; E87.20 Acidosis, unspecified; I48.92 Unspecified atrial flutter; E46 Unspecified protein-calorie malnutrition; I42.8 Other cardiomyopathies; E87.0 Hyperosmolality and hypernatremia; R04.2 Hemoptysis; C78.01 Secondary malignant neoplasm of right lung; Z66 Do not resuscitate; I25.10 Atherosclerotic heart disease of native coronary artery without angina pectoris; I44.7 Left bundle-branch block, unspecified; E83.42 Hypomagnesemia; N40.0 Benign prostatic hyperplasia without lower urinary tract symptoms; D69.6 Thrombocytopenia, unspecified; H40.9 Unspecified glaucoma; H26.9 Unspecified cataract; I27.20 Pulmonary hypertension, unspecified; E87.6 Hypokalemia; M19.90 Unspecified osteoarthritis, unspecified site; J45.40 Moderate persistent asthma, uncomplicated; D53.9 Nutritional anemia, unspecified; K21.9 Gastro-esophageal reflux disease without esophagitis; Z77.090 Contact with and (suspected) exposure to asbestos; Z86.73 Personal history of transient ischemic attack (TIA), and cerebral infarction without residual deficits; Z79.02 Long term (current) use of antithrombotics/antiplatelets; Z79.899 Other long term (current) drug therapy; K59.00 Constipation, unspecified; Z98.41 Cataract extraction status, right eye; Z92.3 Personal history of irradiation; Z90.2 Acquired absence of lung [part of]

== ENCOUNTER → 2023-06-18 | Outpatient (REF) | payer MEDICARE ==
[~2023-06-18] MED LIST changes: +DORZ2SOL4 OU; +DOXY100C3 PO; +FURO40TA2 PO; +IPRA0.00 INH; -IPRA0.00 NEB; +ISOS1TAB35 PO; +OMEP-173 PO; +POTA10CA60 PO; +TAMS1CAP17 PO
[2023-06-18 18:26] LABS: ATYPICAL LYMPH 1 % (0-5); BASOPHILS 1 % (0-1); EOSINOPHILS 1 % (0-3); LYMPHOCYTES 6 % (16-44); MONOCYTES 3 % (0-5); NEUTROPHILS 88 % (28-66)
[2023-06-18 18:27] LABS: PLATELET ESTIMATE DECREASED (NORMAL)
== END ==
LOC: M LAB REF 16:04
PROVIDERS: ATTEND Family Medicine
DX: I50.22 Chronic systolic (congestive) heart failure (principal); D72.89 Other specified disorders of white blood cells

== ENCOUNTER → 2023-07-05 | Outpatient (REF) ==
[~2023-07-05] MED LIST changes: +ALTA1CAP PO; +DORZ2SOL4 OU; +DOXY100C3 PO; +FURO20TA2 PO; +MIRA3350 PO
[2023-07-05 11:14] LABS: HEMATOCRIT 32.1 % (42.0-52.0); HEMOGLOBIN 10.6 g/dl (13.5-17.5); MEAN CORPUSCULAR HEMOGLOBIN 32.5 pg (27.0-33.0); MEAN CORPUSCULAR VOLUME 98.5 fl (80.0-96.0); PLATELET COUNT, AUTOMATED 102 10^3/uL (150-450); RED BLOOD COUNT 3.26 10^6/uL (4.30-6.10); WHITE BLOOD COUNT 7.8 10^3/uL (4.0-10.0)
[2023-07-05 11:31] LABS: ALBUMIN 2.2 G/DL (3.2-5.2); ALKALINE PHOSPHATASE 77 U/L (46-116); ALT/SGPT 28 U/L (7.0-40); AST/SGOT 19 U/L (<34); BILIRUBIN,DIRECT 0.3 MG/DL (<0.4); BILIRUBIN,TOTAL 0.5 MG/DL (0.3-1.2); BLOOD UREA NITROGEN 9 MG/DL (9-23); CALCIUM LEVEL 8.3 MG/DL (8.3-10.6); CARBON DIOXIDE LEVEL 30 MMOL/L (20-31); CHLORIDE LEVEL 104 MMOL/L (98-107); CREATININE FOR GFR 0.65 MG/DL (0.70-1.30); GLOMERULAR FILTRATION RATE > 60.0 (>35); GLUCOSE, FASTING 101 MG/DL (74-106); POTASSIUM SERUM 4.5 MMOL/L (3.5-5.1); SODIUM LEVEL 138 MMOL/L (136-145); THYROID STIMULATING HORMONE 2.801 uIU/ML (0.55-4.78); TOTAL PROTEIN 4.6 G/DL (5.7-8.2)
[2023-07-05 11:47] LABS: HEMOGLOBIN A1c 5.2 % (4.0-6.0)
== END ==
PROVIDERS: ATTEND Physician Assistant
DX: I50.9 Heart failure, unspecified (principal)

== ENCOUNTER → 2023-07-14 | Outpatient (REF) ==
[2023-07-14 09:52] LABS: HEMATOCRIT 35.1 % (42.0-52.0); HEMOGLOBIN 11.4 g/dl (13.5-17.5); MEAN CORPUSCULAR HEMOGLOBIN 32.6 pg (27.0-33.0); MEAN CORPUSCULAR HGB CONC 32.5 g/dl (32.0-36.5); MEAN CORPUSCULAR VOLUME 100.3 fl (80.0-96.0); WHITE BLOOD COUNT 2.9 10^3/uL (4.0-10.0)
[2023-07-14 09:54] LABS: PLATELET COUNT, AUTOMATED 70 10^3/uL (150-450)
[2023-07-14 10:21] LABS: BLOOD UREA NITROGEN 11 MG/DL (9-23); CARBON DIOXIDE LEVEL 32 MMOL/L (20-31); CHLORIDE LEVEL 103 MMOL/L (98-107); CREATININE FOR GFR 0.67 MG/DL (0.70-1.30); GLOMERULAR FILTRATION RATE > 60.0 (>35); GLUCOSE, FASTING 122 MG/DL (74-106); SODIUM LEVEL 138 MMOL/L (136-145)
== END ==
PROVIDERS: ATTEND Physician Assistant
DX: I50.9 Heart failure, unspecified (principal)

== ENCOUNTER → 2023-07-16 | Outpatient (REF) | PROVIDERS: ATTEND Physician Assistant | DX: I10 Essential (primary) hypertension (principal); Z53.8 Procedure and treatment not carried out for other reasons ==

== ENCOUNTER 2023-07-21 12:30 | Inpatient (IN) | payer MEDICARE ==
[~2023-07-21] VITALS: Ht 172.7 cm; Wt 68.6 kg
[2023-07-21] MEDS ORDERED: MED REC IN PROGRESS XX SCH (13:40)
[2023-07-21 13:47] LABS: ALBUMIN 2.8 G/DL (3.2-5.2); ALKALINE PHOSPHATASE 82 U/L (46-116); ALT/SGPT < 9 U/L (7.0-40); AST/SGOT 13 U/L (<34); BILIRUBIN,DIRECT 0.3 MG/DL (<0.4); BILIRUBIN,TOTAL 0.9 MG/DL (0.3-1.2); BLOOD UREA NITROGEN 14 MG/DL (9-23); CALCIUM LEVEL 8.5 MG/DL (8.3-10.6); CARBON DIOXIDE LEVEL 33 MMOL/L (20-31); CHLORIDE LEVEL 101 MMOL/L (98-107); CREATININE FOR GFR 0.62 MG/DL (0.70-1.30); GLOMERULAR FILTRATION RATE > 60.0 (>35); GLUCOSE, FASTING 93 MG/DL (74-106); POTASSIUM SERUM 4.6 MMOL/L (3.5-5.1); SODIUM LEVEL 134 MMOL/L (136-145); TOTAL PROTEIN 5.5 G/DL (5.7-8.2)
[2023-07-21 13:49] LABS: THYROID STIMULATING HORMONE 3.189 uIU/ML (0.55-4.78)
[2023-07-21 14:21] VITALS: BP 113/64; TEMP 97.1; O2SAT 98
[2023-07-21 14:36] VITALS: BP 125/70; TEMP 98.2; O2SAT 97
[2023-07-21 14:50] LABS: INR 1.1; PROTHROMBIN TIME 13.9 SECONDS (12.5-14.5)
[2023-07-21 14:51] LABS: PARTIAL THROMBOPLASTIN TIME 25.9 SECONDS (24.8-34.2)
[2023-07-21] MEDS ORDERED: TAMS1CAP17 PO (14:52)
[2023-07-21] MEDS ORDERED: FURO40TA2 PO (14:52)
[2023-07-21] MEDS ORDERED: HOME MED LIST COMPLETE! XX SCH (14:55)
[2023-07-21] MEDS ORDERED: FUROSEMIDE 40 MG TAB PO SCH (17:00)
[2023-07-21] MEDS ORDERED: FUROSEMIDE 20MG/2ML VIAL IV ONE (17:00)
[2023-07-21 17:45] VITALS: BP 131/80; TEMP 98.1; O2SAT 89
[2023-07-21 19:16] LABS: PROCALCITONIN 0.05 ng/ml
[2023-07-21 20:10] LABS: BASO % 0.9 % (0.0-1.0); EOS # 0.1 10^3/uL (0.0-0.5); EOS % 4.7 % (0.0-3.0); HEMATOCRIT 39.5 % (42.0-52.0); LYMPH # 0.3 10^3/uL (1.5-5.0); MEAN CORPUSCULAR HEMOGLOBIN 32.5 pg (27.0-33.0); MEAN CORPUSCULAR HGB CONC 32.9 g/dl (32.0-36.5); MEAN CORPUSCULAR VOLUME 98.8 fl (80.0-96.0); MONO # 0.4 10^3/uL (0.0-0.8); MONO % 19.6 % (2.0-8.0); NEUTROPHILS # 1.2 10^3/uL (1.5-8.5); NEUTROPHILS % 57.9 % (36.0-66.0); WHITE BLOOD COUNT 2.1 10^3/uL (4.0-10.0)
[2023-07-21 20:12] LABS: PLATELET COUNT, AUTOMATED 6 10^3/uL (150-450)
[2023-07-21] MEDS: LATANOPROST 0.005% OPHTH SOLN 2.5 ML OU SCH (20:24)
[2023-07-21] MEDS: POTASSIUM CHLORIDE 10MEQ SR TABLET PO SCH (20:24)
[2023-07-21] MEDS: SYMBICORT 80/4.5MCG INHALER 6GM INH SCH (20:28)
[2023-07-21] MEDS: DORZOLAMIDE 2% OPHTH SOLN 10 ML BTL OU SCH (21:00)
[2023-07-21 21:40] VITALS: BP 102/64; TEMP 97.7; O2SAT 90
[2023-07-22] VITALS (14 sets, daily range): BP systolic 90–108; BP diastolic 58–72; TEMP 98.1–98.4; O2SAT 90–97
[2023-07-22 06:28] LABS: HEMATOCRIT 36.6 % (42.0-52.0); HEMOGLOBIN 12.2 g/dl (13.5-17.5); MEAN CORPUSCULAR HEMOGLOBIN 32.7 pg (27.0-33.0); MEAN CORPUSCULAR HGB CONC 33.3 g/dl (32.0-36.5); MEAN CORPUSCULAR VOLUME 98.1 fl (80.0-96.0); RED BLOOD COUNT 3.73 10^6/uL (4.30-6.10); WHITE BLOOD COUNT 2.1 10^3/uL (4.0-10.0)
[2023-07-22 06:29] LABS: PLATELET COUNT, AUTOMATED 6 10^3/uL (150-450)
[2023-07-22 06:34] LABS: BASO % 0.5 % (0.0-1.0); EOS # 0.2 10^3/uL (0.0-0.5); EOS % 10.1 % (0.0-3.0); LYMPH # 0.3 10^3/uL (1.5-5.0); LYMPH % 14.9 % (24.0-44.0); MONO # 0.5 10^3/uL (0.0-0.8); MONO % 23.1 % (2.0-8.0)
[2023-07-22 06:48] LABS: BLOOD UREA NITROGEN 12 MG/DL (9-23); CALCIUM LEVEL 8.2 MG/DL (8.3-10.6); CARBON DIOXIDE LEVEL 36 MMOL/L (20-31); CHLORIDE LEVEL 103 MMOL/L (98-107); CREATININE FOR GFR 0.75 MG/DL (0.70-1.30); GLOMERULAR FILTRATION RATE > 60.0 (>35); GLUCOSE, FASTING 88 MG/DL (74-106); POTASSIUM SERUM 4.4 MMOL/L (3.5-5.1); SODIUM LEVEL 141 MMOL/L (136-145)
[2023-07-22] MEDS: SYMBICORT 80/4.5MCG INHALER 6GM INH SCH ×2 (08:37→19:56)
[2023-07-22] MEDS: POTASSIUM CHLORIDE 10MEQ SR TABLET PO SCH ×3 (08:46→20:59)
[2023-07-22] MEDS: TAMSULOSIN 0.4 MG CAP PO SCH (08:46)
[2023-07-22] MEDS: FUROSEMIDE 20MG/2ML VIAL IV SCH (08:46)
[2023-07-22] MEDS: FINASTERIDE 5MG TAB PO SCH (08:46)
[2023-07-22] MEDS: DORZOLAMIDE 2% OPHTH SOLN 10 ML BTL OU SCH ×2 (08:47→20:59)
[2023-07-22] MEDS ORDERED: ISOSORBIDE MON. (IMDUR) 30MG XR TAB PO SCH (09:00)
[2023-07-22] MEDS ORDERED: FUROSEMIDE 40 MG TAB PO SCH (09:00)
[2023-07-22] MEDS ORDERED: ramipriL 1.25 MG CAP PO SCH (09:00)
[2023-07-22] MEDS ORDERED: LIDOCAINE 2% 100MG/5ML SDV (FOR ANES.) SC SCH (12:00)
[2023-07-22 19:56] LABS: HEMOGLOBIN 12.5 g/dl (13.5-17.5); MEAN CORPUSCULAR HEMOGLOBIN 32.6 pg (27.0-33.0); MEAN CORPUSCULAR HGB CONC 32.9 g/dl (32.0-36.5); RED BLOOD COUNT 3.84 10^6/uL (4.30-6.10)
[2023-07-22 19:57] LABS: PLATELET COUNT, AUTOMATED 24 10^3/uL (150-450)
[2023-07-22] MEDS: LATANOPROST 0.005% OPHTH SOLN 2.5 ML OU SCH (20:59)
[2023-07-23 06:23] VITALS: BP 102/66; TEMP 98.1; O2SAT 94
[2023-07-23 06:41] LABS: BASO % 1.2 % (0.0-1.0); EOS # 0.2 10^3/uL (0.0-0.5); EOS % 7.6 % (0.0-3.0); HEMATOCRIT 38.6 % (42.0-52.0); HEMOGLOBIN 12.7 g/dl (13.5-17.5); LYMPH # 0.3 10^3/uL (1.5-5.0); LYMPH % 13.2 % (24.0-44.0); MEAN CORPUSCULAR HEMOGLOBIN 32.6 pg (27.0-33.0); MEAN CORPUSCULAR HGB CONC 32.9 g/dl (32.0-36.5); MONO # 0.5 10^3/uL (0.0-0.8); MONO % 21.2 % (2.0-8.0); NEUTROPHILS # 1.4 10^3/uL (1.5-8.5); NEUTROPHILS % 55.6 % (36.0-66.0); WHITE BLOOD COUNT 2.5 10^3/uL (4.0-10.0)
[2023-07-23 06:45] LABS: PLATELET COUNT, AUTOMATED 17 10^3/uL (150-450)
[2023-07-23 07:04] LABS: BLOOD UREA NITROGEN 13 MG/DL (9-23); CALCIUM LEVEL 8.4 MG/DL (8.3-10.6); CARBON DIOXIDE LEVEL 37 MMOL/L (20-31); CHLORIDE LEVEL 104 MMOL/L (98-107); CREATININE FOR GFR 0.73 MG/DL (0.70-1.30); GLOMERULAR FILTRATION RATE > 60.0 (>35); GLUCOSE, FASTING 87 MG/DL (74-106); POTASSIUM SERUM 4.5 MMOL/L (3.5-5.1); SODIUM LEVEL 141 MMOL/L (136-145)
[2023-07-23] MEDS: SYMBICORT 80/4.5MCG INHALER 6GM INH SCH ×2 (07:30→20:27)
[2023-07-23] MEDS: FINASTERIDE 5MG TAB PO SCH (08:59)
[2023-07-23] MEDS: TAMSULOSIN 0.4 MG CAP PO SCH (08:59)
[2023-07-23] MEDS: POTASSIUM CHLORIDE 10MEQ SR TABLET PO SCH ×3 (08:59→21:20)
[2023-07-23] MEDS: FUROSEMIDE 20MG/2ML VIAL IV SCH (08:59)
[2023-07-23] MEDS: DORZOLAMIDE 2% OPHTH SOLN 10 ML BTL OU SCH ×2 (08:59→16:00)
[2023-07-23 14:00] VITALS: BP 99/61; TEMP 97.5; O2SAT 95
[2023-07-23] MEDS ORDERED: IPRATROPIUM 0.5MG/ALBUTEROL 2.5MG INH SOL UD 3ML (DUONEB) INH PRN (17:25)
[2023-07-23 21:01] VITALS: BP 102/60; TEMP 97.7; O2SAT 96
[2023-07-23] MEDS: LATANOPROST 0.005% OPHTH SOLN 2.5 ML OU SCH (21:20)
[2023-07-23] MEDS: OMEPRAZOLE 20MG CAP PO SCH (21:21)
[2023-07-24 06:00] VITALS: BP 99/61; TEMP 97.7; O2SAT 97
[2023-07-24 07:07] LABS: BASO % 0.8 % (0.0-1.0); EOS # 0.2 10^3/uL (0.0-0.5); EOS % 7.2 % (0.0-3.0); HEMATOCRIT 37.7 % (42.0-52.0); HEMOGLOBIN 12.6 g/dl (13.5-17.5); LYMPH # 0.3 10^3/uL (1.5-5.0); LYMPH % 12.9 % (24.0-44.0); MEAN CORPUSCULAR HEMOGLOBIN 32.8 pg (27.0-33.0); MEAN CORPUSCULAR HGB CONC 33.4 g/dl (32.0-36.5); MEAN CORPUSCULAR VOLUME 98.2 fl (80.0-96.0); MONO # 0.6 10^3/uL (0.0-0.8); MONO % 20.9 % (2.0-8.0); NEUTROPHILS # 1.5 10^3/uL (1.5-8.5); NEUTROPHILS % 57.1 % (36.0-66.0); RED BLOOD COUNT 3.84 10^6/uL (4.30-6.10); WHITE BLOOD COUNT 2.6 10^3/uL (4.0-10.0)
[2023-07-24 07:16] LABS: PLATELET COUNT, AUTOMATED 13 10^3/uL (150-450)
[2023-07-24] MEDS: SYMBICORT 80/4.5MCG INHALER 6GM INH SCH ×2 (07:20→19:21)
[2023-07-24 07:26] LABS: BLOOD UREA NITROGEN 15 MG/DL (9-23); CALCIUM LEVEL 8.3 MG/DL (8.3-10.6); CARBON DIOXIDE LEVEL 34 MMOL/L (20-31); CHLORIDE LEVEL 105 MMOL/L (98-107); CREATININE FOR GFR 0.68 MG/DL (0.70-1.30); GLOMERULAR FILTRATION RATE > 60.0 (>35); GLUCOSE, FASTING 94 MG/DL (74-106); SODIUM LEVEL 140 MMOL/L (136-145)
[2023-07-24] MEDS: TAMSULOSIN 0.4 MG CAP PO SCH (08:35)
[2023-07-24] MEDS: FINASTERIDE 5MG TAB PO SCH (08:35)
[2023-07-24] MEDS: POTASSIUM CHLORIDE 10MEQ SR TABLET PO SCH ×3 (08:35→20:19)
[2023-07-24] MEDS: DORZOLAMIDE 2% OPHTH SOLN 10 ML BTL OU SCH ×2 (08:36→15:37)
[2023-07-24] MEDS ORDERED: FUROSEMIDE 40 MG TAB PO SCH (09:00)
[2023-07-24 14:17] VITALS: BP 98/62; TEMP 98.1; O2SAT 97
[2023-07-24] MEDS: ARTIFICIAL TEARS DROPS 15ML BTL (VISINE DRY RELIEF) OU PRN ×2 (15:37→17:44)
[2023-07-24] MEDS: OMEPRAZOLE 20MG CAP PO SCH (20:19)
[2023-07-24] MEDS: LATANOPROST 0.005% OPHTH SOLN 2.5 ML OU SCH (20:19)
[2023-07-24 22:00] VITALS: BP 97/62; TEMP 97.7; O2SAT 98
[2023-07-25 06:00] VITALS: BP 92/61; TEMP 97.7; O2SAT 98
[2023-07-25] MEDS: SYMBICORT 80/4.5MCG INHALER 6GM INH SCH ×2 (06:29→20:33)
[2023-07-25 06:45] LABS: BASO % 0.8 % (0.0-1.0); EOS # 0.1 10^3/uL (0.0-0.5); EOS % 4.9 % (0.0-3.0); HEMATOCRIT 38.2 % (42.0-52.0); HEMOGLOBIN 12.5 g/dl (13.5-17.5); LYMPH # 0.3 10^3/uL (1.5-5.0); LYMPH % 11.7 % (24.0-44.0); MEAN CORPUSCULAR HEMOGLOBIN 32.3 pg (27.0-33.0); MEAN CORPUSCULAR HGB CONC 32.7 g/dl (32.0-36.5); MEAN CORPUSCULAR VOLUME 98.7 fl (80.0-96.0); MONO # 0.5 10^3/uL (0.0-0.8); MONO % 18.4 % (2.0-8.0); NEUTROPHILS # 1.7 10^3/uL (1.5-8.5); NEUTROPHILS % 63.1 % (36.0-66.0); RED BLOOD COUNT 3.87 10^6/uL (4.30-6.10); WHITE BLOOD COUNT 2.7 10^3/uL (4.0-10.0)
[2023-07-25 06:57] LABS: PLATELET COUNT, AUTOMATED 11 10^3/uL (150-450)
[2023-07-25 07:19] LABS: BLOOD UREA NITROGEN 15 MG/DL (9-23); CALCIUM LEVEL 8.3 MG/DL (8.3-10.6); CARBON DIOXIDE LEVEL 34 MMOL/L (20-31); CHLORIDE LEVEL 105 MMOL/L (98-107); CREATININE FOR GFR 0.74 MG/DL (0.70-1.30); GLOMERULAR FILTRATION RATE > 60.0 (>35); GLUCOSE, FASTING 90 MG/DL (74-106); POTASSIUM SERUM 4.4 MMOL/L (3.5-5.1); SODIUM LEVEL 141 MMOL/L (136-145)
[2023-07-25] MEDS: DORZOLAMIDE 2% OPHTH SOLN 10 ML BTL OU SCH ×2 (09:04→15:35)
[2023-07-25] MEDS: POTASSIUM CHLORIDE 10MEQ SR TABLET PO SCH ×2 (09:05→21:35)
[2023-07-25] MEDS: TAMSULOSIN 0.4 MG CAP PO SCH (09:05)
[2023-07-25] MEDS: FINASTERIDE 5MG TAB PO SCH (09:05)
[2023-07-25 13:57] VITALS: BP 92/78; TEMP 98.1; O2SAT 91
[2023-07-25] MEDS: ARTIFICIAL TEARS DROPS 15ML BTL (VISINE DRY RELIEF) OU PRN (16:40)
[2023-07-25 21:06] VITALS: BP 92/58; TEMP 98.1; O2SAT 92
[2023-07-25] MEDS: LATANOPROST 0.005% OPHTH SOLN 2.5 ML OU SCH (21:34)
[2023-07-25] MEDS: OMEPRAZOLE 20MG CAP PO SCH (21:35)
[2023-07-26 05:56] VITALS: BP 96/54
[2023-07-26 06:00] VITALS: TEMP 97.7; O2SAT 94
[2023-07-26 07:03] LABS: BASO % 1.2 % (0.0-1.0); EOS # 0.1 10^3/uL (0.0-0.5); EOS % 5.4 % (0.0-3.0); HEMATOCRIT 37.5 % (42.0-52.0); HEMOGLOBIN 12.4 g/dl (13.5-17.5); LYMPH # 0.4 10^3/uL (1.5-5.0); LYMPH % 16.7 % (24.0-44.0); MEAN CORPUSCULAR HEMOGLOBIN 32.5 pg (27.0-33.0); MEAN CORPUSCULAR HGB CONC 33.1 g/dl (32.0-36.5); MEAN CORPUSCULAR VOLUME 98.2 fl (80.0-96.0); MONO # 0.5 10^3/uL (0.0-0.8); MONO % 18.2 % (2.0-8.0); NEUTROPHILS # 1.5 10^3/uL (1.5-8.5); NEUTROPHILS % 56.9 % (36.0-66.0); RED BLOOD COUNT 3.82 10^6/uL (4.30-6.10); WHITE BLOOD COUNT 2.6 10^3/uL (4.0-10.0)
[2023-07-26 07:07] LABS: PLATELET COUNT, AUTOMATED 9 10^3/uL (150-450)
[2023-07-26 07:19] LABS: BLOOD UREA NITROGEN 14 MG/DL (9-23); CALCIUM LEVEL 8.5 MG/DL (8.3-10.6); CARBON DIOXIDE LEVEL 33 MMOL/L (20-31); CHLORIDE LEVEL 102 MMOL/L (98-107); CREATININE FOR GFR 0.84 MG/DL (0.70-1.30); GLOMERULAR FILTRATION RATE > 60.0 (>35); GLUCOSE, FASTING 91 MG/DL (74-106); POTASSIUM SERUM 4.4 MMOL/L (3.5-5.1); SODIUM LEVEL 137 MMOL/L (136-145)
[2023-07-26] MEDS ORDERED: FUROSEMIDE 20 MG TAB PO PRN (08:15)
[2023-07-26] MEDS ORDERED: FUROSEMIDE 20 MG TAB PO SCH (09:00)
[2023-07-26] MEDS: DORZOLAMIDE 2% OPHTH SOLN 10 ML BTL OU SCH ×2 (09:00→16:00)
[2023-07-26] MEDS: POTASSIUM CHLORIDE 10MEQ SR TABLET PO SCH ×2 (09:29→21:16)
[2023-07-26] MEDS: TAMSULOSIN 0.4 MG CAP PO SCH (09:29)
[2023-07-26] MEDS: FINASTERIDE 5MG TAB PO SCH (09:29)
[2023-07-26] MEDS: SYMBICORT 80/4.5MCG INHALER 6GM INH SCH ×2 (13:10→20:07)
[2023-07-26 14:00] VITALS: BP 109/63; TEMP 97.5; O2SAT 93
[2023-07-26 20:00] VITALS: BP 100/61; TEMP 97.7; O2SAT 93
[2023-07-26] MEDS: LATANOPROST 0.005% OPHTH SOLN 2.5 ML OU SCH (21:15)
[2023-07-26] MEDS: OMEPRAZOLE 20MG CAP PO SCH (21:15)
[2023-07-27 06:00] VITALS: BP 98/65; TEMP 98.1; O2SAT 95
[2023-07-27 07:05] LABS: BASO % 0.7 % (0.0-1.0); EOS # 0.1 10^3/uL (0.0-0.5); EOS % 3.1 % (0.0-3.0); HEMATOCRIT 40.3 % (42.0-52.0); HEMOGLOBIN 13.5 g/dl (13.5-17.5); LYMPH # 0.4 10^3/uL (1.5-5.0); MEAN CORPUSCULAR HEMOGLOBIN 32.4 pg (27.0-33.0); MEAN CORPUSCULAR HGB CONC 33.5 g/dl (32.0-36.5); MEAN CORPUSCULAR VOLUME 96.6 fl (80.0-96.0); MONO # 0.5 10^3/uL (0.0-0.8); MONO % 16.4 % (2.0-8.0); NEUTROPHILS # 1.9 10^3/uL (1.5-8.5); NEUTROPHILS % 65.4 % (36.0-66.0); RED BLOOD COUNT 4.17 10^6/uL (4.30-6.10); WHITE BLOOD COUNT 2.9 10^3/uL (4.0-10.0)
[2023-07-27 07:17] LABS: PLATELET COUNT, AUTOMATED 9 10^3/uL (150-450)
[2023-07-27 07:29] LABS: BLOOD UREA NITROGEN 12 MG/DL (9-23); CALCIUM LEVEL 8.6 MG/DL (8.3-10.6); CARBON DIOXIDE LEVEL 31 MMOL/L (20-31); CHLORIDE LEVEL 105 MMOL/L (98-107); CREATININE FOR GFR 0.75 MG/DL (0.70-1.30); GLOMERULAR FILTRATION RATE > 60.0 (>35); GLUCOSE, FASTING 88 MG/DL (74-106); POTASSIUM SERUM 4.2 MMOL/L (3.5-5.1); SODIUM LEVEL 138 MMOL/L (136-145)
[2023-07-27] MEDS ORDERED: POTA-136 PO (07:37)
[2023-07-27] MEDS ORDERED: FURO20TA2 PO (07:37)
[2023-07-27] MEDS: SYMBICORT 80/4.5MCG INHALER 6GM INH SCH (08:09)
[2023-07-27] MEDS: FINASTERIDE 5MG TAB PO SCH (08:33)
[2023-07-27] MEDS: TAMSULOSIN 0.4 MG CAP PO SCH (08:33)
[2023-07-27] MEDS: DORZOLAMIDE 2% OPHTH SOLN 10 ML BTL OU SCH (08:34)
[2023-07-27] MEDS: POTASSIUM CHLORIDE 10MEQ SR TABLET PO SCH (08:34)
[2023-07-27 13:39] VITALS: BP 93/58; TEMP 97.7; O2SAT 92
== END 2023-07-27 16:00 | disposition home health service (06) | DRG 811 ==
LOC: M ED 12:30 → EDBD 12:30 → M ED INP 16:14 → ENRESERV 16:54 → M MS5PR 17:35
PROVIDERS: ADMIT Internal Medicine Nephrology; ATTEND General Practice
PROC: 30233R1 Transfusion of Nonautologous Platelets into Peripheral Vein, Percutaneous Approach (ICD-10-PCS; 2023-07-21)
PROC: 07DT3ZX Extraction of Bone Marrow, Percutaneous Approach, Diagnostic (ICD-10-PCS; principal; 2023-07-22)
PROC: 30233K1 Transfusion of Nonautologous Frozen Plasma into Peripheral Vein, Percutaneous Approach (ICD-10-PCS; 2023-07-22)
DX: D46.9 Myelodysplastic syndrome, unspecified (principal); I50.23 Acute on chronic systolic (congestive) heart failure; D61.818 Other pancytopenia; I25.10 Atherosclerotic heart disease of native coronary artery without angina pectoris; I27.20 Pulmonary hypertension, unspecified; N40.0 Benign prostatic hyperplasia without lower urinary tract symptoms; H40.9 Unspecified glaucoma; J45.909 Unspecified asthma, uncomplicated; K21.9 Gastro-esophageal reflux disease without esophagitis; R91.8 Other nonspecific abnormal finding of lung field; D47.2 Monoclonal gammopathy; K44.9 Diaphragmatic hernia without obstruction or gangrene; D69.6 Thrombocytopenia, unspecified; D50.9 Iron deficiency anemia, unspecified; I95.89 Other hypotension; D64.9 Anemia, unspecified; K40.20 Bilateral inguinal hernia, without obstruction or gangrene, not specified as recurrent; K57.90 Diverticulosis of intestine, part unspecified, without perforation or abscess without bleeding; K59.00 Constipation, unspecified; Z79.02 Long term (current) use of antithrombotics/antiplatelets; Z79.899 Other long term (current) drug therapy

== ENCOUNTER → 2023-07-21 | Outpatient (REF) ==
[2023-07-21 10:57] LABS: HEMATOCRIT 38.9 % (42.0-52.0); HEMOGLOBIN 12.8 g/dl (13.5-17.5); MEAN CORPUSCULAR HEMOGLOBIN 33.2 pg (27.0-33.0); MEAN CORPUSCULAR HGB CONC 32.9 g/dl (32.0-36.5); MEAN CORPUSCULAR VOLUME 100.8 fl (80.0-96.0); RED BLOOD COUNT 3.86 10^6/uL (4.30-6.10); WHITE BLOOD COUNT 2.4 10^3/uL (4.0-10.0)
[2023-07-21 11:14] LABS: PLATELET COUNT, AUTOMATED 3 10^3/uL (150-450)
== END ==
PROVIDERS: ATTEND Physician Assistant
DX: I10 Essential (primary) hypertension (principal)

== ENCOUNTER → 2023-07-28 | Outpatient (REF) ==
[~2023-07-28] MED LIST changes: +POTA-136 PO
== END ==
PROVIDERS: ATTEND Internal Medicine
DX: I50.9 Heart failure, unspecified (principal); Z53.8 Procedure and treatment not carried out for other reasons

== ENCOUNTER 2023-08-13 15:45 | Outpatient (CLI) | payer MEDICARE ==
[~2023-08-13] VITALS: Ht 172.7 cm; Wt 65.3 kg
[2023-08-13 16:18] VITALS: BP 102/65; TEMP 98.1; O2SAT 97
[2023-08-13] MEDS ORDERED: ACETAMINOPHEN TAB 650MG DOSE (2X325MG) PO ONE (17:00)
[2023-08-13] MEDS ORDERED: NS 250 ML IV ONE (17:00)
[2023-08-13] MEDS ORDERED: diphenhydrAMINE 25MG CAP PO ONE (17:00)
[2023-08-13 17:18] VITALS: BP 102/65; TEMP 98.1; O2SAT 97
[2023-08-13 17:33] VITALS: BP 93/57; TEMP 98.2; O2SAT 98
[2023-08-13 18:57] VITALS: BP 118/68; TEMP 97.9; O2SAT 95
== END 2023-08-13 19:07 | disposition home or self-care (01) ==
LOC: M OPCLI4PV 15:45 → M MSPAV 16:00 → M OPCLI4PV 19:07
PROVIDERS: ATTEND Specialist
DX: D46.9 Myelodysplastic syndrome, unspecified (principal)
CPT/HCPCS: 36430; P9034

== ENCOUNTER 2023-08-20 15:15 | Outpatient (CLI) | payer MEDICARE ==
[2023-08-20] MEDS: SODIUM CHLORIDE 0.9% INJ 10 ML SYR IV SCH (09:00)
[2023-08-20 13:30] VITALS: BP 93/61; TEMP 97.9; O2SAT 97
[2023-08-20] MEDS ORDERED: SODIUM CHLORIDE 0.9% INJ 10 ML SYR IV PRN (15:30)
[2023-08-20] MEDS: ACETAMINOPHEN TAB 650MG DOSE (2X325MG) PO ONE (17:00)
[2023-08-20] MEDS ORDERED: NS 250 ML IV ONE (17:00)
[2023-08-20] MEDS: diphenhydrAMINE 25MG CAP PO ONE (17:00)
[2023-08-20 17:58] VITALS: BP 92/60; TEMP 98.6; O2SAT 95
[2023-08-20 18:13] VITALS: BP 88/47; TEMP 98.1; O2SAT 94
[2023-08-20 19:01] VITALS: BP 96/58; TEMP 98.2; O2SAT 96
[2023-08-20 19:26] VITALS: BP 96/58; TEMP 97.9; O2SAT 97
[2023-08-26] MEDS ORDERED: PRED20TA PO (14:43)
== END 2023-08-20 19:32 | disposition home or self-care (01) ==
LOC: M OPCLI4PV 15:15 → M MSPAV 15:30 → M OPCLI4PV 19:32
PROVIDERS: ATTEND Internal Medicine Hematology & Oncology
DX: D46.9 Myelodysplastic syndrome, unspecified (principal)

== ENCOUNTER → 2023-10-14 | Outpatient (REF) | payer MEDICARE ==
[~2023-10-14] MED LIST changes: +PRED10TA2 PO; +PRED20TA PO
== END ==
LOC: M LAB REF 12:11
PROVIDERS: ATTEND Family Medicine
DX: I50.22 Chronic systolic (congestive) heart failure (principal)

== ENCOUNTER → 2023-10-19 | Outpatient (CLI) | payer MEDICARE | LOC: M RAD 13:35 | PROVIDERS: ATTEND Family Medicine | DX: D64.9 Anemia, unspecified (principal); M79.89 Other specified soft tissue disorders ==

== ENCOUNTER 2023-10-26 03:14 | Emergency (ER) | payer MEDICARE ==
[~2023-10-26] VITALS: Ht 172.7 cm; Wt 76.6 kg
[2023-10-26] MEDS: LEVALBUTEROL 1.25MG 0.5ML CONCENTRATE NEB NEB ONE ×2 (03:30→03:45)
[2023-10-26 03:45] VITALS: BP 134/82
[2023-10-26 03:45] LABS: BASO # 0.1 10^3/uL (0.0-0.2); BASO % 0.7 % (0.0-1.0); EOS # 0.1 10^3/uL (0.0-0.5); HEMATOCRIT 46.3 % (42.0-52.0); HEMOGLOBIN 15.8 g/dl (13.5-17.5); LYMPH # 1.2 10^3/uL (1.5-5.0); MEAN CORPUSCULAR HEMOGLOBIN 32.4 pg (27.0-33.0); MEAN CORPUSCULAR HGB CONC 34.1 g/dl (32.0-36.5); MEAN CORPUSCULAR VOLUME 95.1 fl (80.0-96.0); MONO # 0.9 10^3/uL (0.0-0.8); MONO % 7.4 % (2.0-8.0); NEUTROPHILS # 9.2 10^3/uL (1.5-8.5); PLATELET COUNT, AUTOMATED 232 10^3/uL (150-450); RED BLOOD COUNT 4.87 10^6/uL (4.30-6.10); WHITE BLOOD COUNT 11.7 10^3/uL (4.0-10.0)
[2023-10-26] MEDS: METOPROLOL 5 MG/5 ML VIAL IV SCH (03:45)
[2023-10-26] MEDS: methylPREDNISolone 125MG 2ML VIAL IV ONE (03:45)
[2023-10-26] MEDS: FUROSEMIDE 100MG/10ML VIAL IV ONE (03:55)
[2023-10-26 04:02] LABS: ABG BASE EXCESS -3.5 (-2.0-2.0); ABG HCO3 21.5 MMOL/L (22.0-26.0); ABG O2 SATURATION 99.5 % (95.0-99.0); ABG PARTIAL PRESSURE CO2 38.6 mmHg (35.0-45.0); ABG PARTIAL PRESSURE O2 285.8 mmHg (75.0-100.0); ABG STANDARD HCO3 21.7 MMOL/L. (22.0-26.0); ABG TOTAL CO2 22.6 MMOL/L (23.0-31.0); ABG pH (ARTERIAL) 7.363 UNITS (7.350-7.450)
[2023-10-26 04:07] LABS: D-DIMER QUANT 4.84 ug/mL (<0.5); INR 1.03; PROTHROMBIN TIME 13.2 SECONDS (12.5-14.5)
[2023-10-26 04:11] LABS: THYROID STIMULATING HORMONE 6.775 uIU/ML (0.55-4.78)
[2023-10-26 04:27] LABS: PROCALCITONIN 0.22 ng/ml
[2023-10-26 05:37] LABS: ALBUMIN 3.5 G/DL (3.2-5.2); ALKALINE PHOSPHATASE 157 U/L (46-116); ALT/SGPT 23 U/L (7.0-40); AST/SGOT 47 U/L (<34); BILIRUBIN,DIRECT 0.3 MG/DL (<0.4); BILIRUBIN,TOTAL 1.4 MG/DL (0.3-1.2); BLOOD UREA NITROGEN 21 MG/DL (9-23); CALCIUM LEVEL 8.7 MG/DL (8.3-10.6); CARBON DIOXIDE LEVEL 23 MMOL/L (20-31); CHLORIDE LEVEL 101 MMOL/L (98-107); CK-MB VALUE MASS < 1.0 NG/ML (<3.6); CPK CREATINE PHOSPHOKINASE 66 U/L (46-171); CREATININE FOR GFR 1.14 MG/DL (0.70-1.30); GLOMERULAR FILTRATION RATE > 60.0 (>35); GLUCOSE, FASTING 209 MG/DL (74-106); MB/CK RELATIVE INDEX 1.51 (< OR =4); POTASSIUM SERUM 4.8 MMOL/L (3.5-5.1); SODIUM LEVEL 137 MMOL/L (136-145); TOTAL PROTEIN 6.6 G/DL (5.7-8.2)
[2023-10-26] MEDS ORDERED: ISOVUE-370 76% 100ML VIAL As Ordered ONE (05:39)
[2023-10-26 07:28] LABS: CK-MB VALUE MASS 4.9 NG/ML (<3.6)
[2023-10-26 07:29] LABS: MB/CK RELATIVE INDEX 6.44 (< OR =4)
[2023-10-26] MEDS ORDERED: BIMA0.036 OU (08:38)
[2023-10-26] MEDS ORDERED: OMEP-173 PO (08:38)
[2023-10-26] MEDS ORDERED: POTA-150 PO (08:47)
[2023-10-26] MEDS ORDERED: PRED10TA2 PO (08:47)
[2023-10-26] MEDS ORDERED: PREDOPD OS (08:49)
[2023-10-26] MEDS ORDERED: KETO2CR TOP (08:49)
[2023-10-26] MEDS ORDERED: HOME MED LIST COMPLETE! XX SCH (08:50)
[2023-10-26] MEDS: ASPIRIN 81MG CHEW TABLET PO ONE (09:24)
[2023-10-26 10:24] VITALS: BP 94/61; TEMP 97.6; O2SAT 93
== END 2023-10-26 10:29 | disposition short-term general hospital (02) ==
LOC: M ED 03:14
DX: I22.2 Subsequent non-ST elevation (NSTEMI) myocardial infarction (principal); J81.0 Acute pulmonary edema; I50.22 Chronic systolic (congestive) heart failure; J44.9 Chronic obstructive pulmonary disease, unspecified; K21.9 Gastro-esophageal reflux disease without esophagitis; Z79.51 Long term (current) use of inhaled steroids; Z79.899 Other long term (current) drug therapy; Z79.52 Long term (current) use of systemic steroids
CPT/HCPCS: 36600; 71045; 71275; 80048; 80076; 82550; 82553; 82803; 83605; 83880; 84145; 84443; 84484; 85025; 85379; 85610; 85730; 87040; 87077; 87186; 87486; 87581; 87633; 87798; 93005; 93041; 94640; 94660; 94760; 96374; 96375; 99285; J1940; J2919; Q9967

== ENCOUNTER → 2023-12-09 | Outpatient (REF) | payer MEDICARE ==
[~2023-12-09] MED LIST changes: +BIMA0.036 OU; +KETO2CR TOP; +POTA-150 PO; -POTA10CA60 PO; +POTA10CA70 PO; +PREDOPD OS
== END ==
LOC: M LAB REF 13:17
PROVIDERS: ATTEND Family Medicine
DX: E46 Unspecified protein-calorie malnutrition (principal)

== ENCOUNTER → 2024-05-22 | Outpatient (CLI) | payer MEDICARE | LOC: M PLAIMG 14:17 | PROVIDERS: ATTEND Internal Medicine Pulmonary Disease | DX: D49.2 Neoplasm of unspecified behavior of bone, soft tissue, and skin (principal) ==

== ENCOUNTER → 2024-06-22 | Outpatient (REF) | payer MEDICARE | LOC: M LAB REF 16:40 | PROVIDERS: ATTEND Family Medicine | DX: D64.9 Anemia, unspecified (principal) ==

== ENCOUNTER → 2024-09-12 | Outpatient (CLI) | payer MEDICARE | LOC: M WUC 11:07 | PROVIDERS: ATTEND Family Medicine | DX: I50.22 Chronic systolic (congestive) heart failure (principal); I25.5 Ischemic cardiomyopathy ==

== ENCOUNTER → 2024-09-15 | Outpatient (CLI) | payer MEDICARE | LOC: M WUC 12:12 | PROVIDERS: ATTEND Physician Assistant | DX: M25.531 Pain in right wrist (principal) ==

== ENCOUNTER → 2024-09-26 | Outpatient (CLI) | payer MEDICARE | LOC: M WUC 12:50 | PROVIDERS: ATTEND Nurse Practitioner Family | DX: M19.041 Primary osteoarthritis, right hand (principal) ==

== ENCOUNTER 2024-11-12 15:33 | Emergency (ER) | payer MEDICARE ==
[~2024-11-12] VITALS: Ht 172.7 cm; Wt 72.8 kg
[~2024-11-12 15:33] MED LIST changes: -FLOM0.4C39 PO; +TAMS-18 PO
[2024-11-12 15:39] VITALS: TEMP 98.6
[2024-11-12 18:15] LABS: KETONE, URINE AUTO RFX NEGATIVE (NEGATIVE); LEUKOCYTE ESTERASE UR AUTO RFX NEGATIVE (NEGATIVE); MUCUS, URINE RFX SMALL (NEGATIVE); NITRITE, URINE AUTO RFX NEGATIVE (NEGATIVE); RBC, URINE AUTO RFX 3 /HPF (0-3); SQUAM EPITHELIAL CELL UR AURFX 0 /HPF (0-6); WBC, URINE AUTO RFX 3 /HPF (0-3)
[2024-11-12 18:15] LABS: BASO % 0.4 % (0.0-1.0); EOS # 0.1 10^3/uL (0.0-0.5); EOS % 1.8 % (0.0-3.0); HEMATOCRIT 37.3 % (42.0-52.0); HEMOGLOBIN 12.3 g/dl (13.5-17.5); LYMPH # 0.7 10^3/uL (1.5-5.0); LYMPH % 9.7 % (24.0-44.0); MEAN CORPUSCULAR HEMOGLOBIN 31.3 pg (27.0-33.0); MEAN CORPUSCULAR VOLUME 94.9 fl (80.0-96.0); MONO # 0.5 10^3/uL (0.0-0.8); NEUTROPHILS # 6.2 10^3/uL (1.5-8.5); NEUTROPHILS % 81.8 % (36.0-66.0); RED BLOOD COUNT 3.93 10^6/uL (4.30-6.10); WHITE BLOOD COUNT 7.6 10^3/uL (4.0-10.0)
[2024-11-12 18:45] LABS: ALBUMIN 2.9 G/DL (3.2-5.2); BILIRUBIN,DIRECT 0.2 MG/DL (<0.4); BILIRUBIN,TOTAL 0.6 MG/DL (0.3-1.2); CALCIUM LEVEL 8.4 MG/DL (8.3-10.6); CREATININE FOR GFR 1.05 MG/DL (0.70-1.30); GLOMERULAR FILTRATION RATE 68.7 (>35); POTASSIUM SERUM 3.9 MMOL/L (3.5-5.1); TOTAL PROTEIN 7.8 G/DL (5.7-8.2)
[2024-11-12 19:15] LABS: PLATELET COUNT, AUTOMATED 63 10^3/uL (150-450)
[2024-11-12] MEDS: NS 500 ML IV ONE ×2 (20:14→20:15)
[2024-11-12 20:30] VITALS: BP 98/58; O2SAT 98
== END 2024-11-12 20:45 | disposition home or self-care (01) ==
LOC: M ED 15:33
DX: R79.9 Abnormal finding of blood chemistry, unspecified (principal); K21.9 Gastro-esophageal reflux disease without esophagitis; J44.9 Chronic obstructive pulmonary disease, unspecified; Z86.73 Personal history of transient ischemic attack (TIA), and cerebral infarction without residual deficits; Z79.51 Long term (current) use of inhaled steroids; Z79.52 Long term (current) use of systemic steroids; Z79.899 Other long term (current) drug therapy

== ENCOUNTER → 2025-03-23 | Outpatient (CLI) | payer MEDICARE ==
[~2025-03-23] MED LIST changes: +FAMO40TA3; +LIDO1ADH93 TD; -LIDO5DIS41 TD; +MELO7.5T35 PO; +PRED10PA2 PO
== END ==
LOC: M WUC 14:04
PROVIDERS: ATTEND Nurse Practitioner Family
DX: R07.82 Intercostal pain (principal); R07.89 Other chest pain; R22.2 Localized swelling, mass and lump, trunk; M85.89 Other specified disorders of bone density and structure, multiple sites; S22.42XK Multiple fractures of ribs, left side, subsequent encounter for fracture with nonunion; R91.8 Other nonspecific abnormal finding of lung field

== ENCOUNTER → 2025-03-28 | Outpatient (CLI) | payer MEDICARE ==
[~2025-03-28] MED LIST changes: +ISOVUE-370 76% 100 ML VIAL As Ordered ONE
== END ==
LOC: M RAD 08:37
PROVIDERS: ATTEND Specialist
DX: C78.02 Secondary malignant neoplasm of left lung (principal); I51.7 Cardiomegaly; I31.39 Other pericardial effusion (noninflammatory); R93.49 Abnormal radiologic findings on diagnostic imaging of other urinary organs
CPT/HCPCS: 71260; 74177; Q9967

== ENCOUNTER → 2025-03-29 | Outpatient (CLI) | payer MEDICARE ==
[~2025-03-29] MED LIST changes: -ISOVUE-370 76% 100 ML VIAL As Ordered ONE
== END ==
LOC: M PAL 13:35
PROVIDERS: ATTEND Physician Assistant
DX: Z51.5 Encounter for palliative care (principal); D46.9 Myelodysplastic syndrome, unspecified; D48.111 Desmoid tumor of chest wall; Z79.891 Long term (current) use of opiate analgesic; Z79.899 Other long term (current) drug therapy; Z79.52 Long term (current) use of systemic steroids

== ENCOUNTER → 2025-04-18 | Outpatient (CLI) | payer MEDICARE | LOC: M ONCR 13:31 | PROVIDERS: ATTEND General Practice | DX: D48.0 Neoplasm of uncertain behavior of bone and articular cartilage (principal); C49.3 Malignant neoplasm of connective and soft tissue of thorax; Z92.3 Personal history of irradiation; Z80.0 Family history of malignant neoplasm of digestive organs; Z90.2 Acquired absence of lung [part of]; Z79.1 Long term (current) use of non-steroidal anti-inflammatories (NSAID); Z79.899 Other long term (current) drug therapy ==

== ENCOUNTER → 2025-04-30 | Outpatient (CLI) | payer MEDICARE ==
[~2025-04-30] MED LIST changes: +MELO15TA28 PO
== END ==
LOC: M PAL 11:00
PROVIDERS: ATTEND Physician Assistant
DX: Z51.5 Encounter for palliative care (principal); D46.9 Myelodysplastic syndrome, unspecified; D48.111 Desmoid tumor of chest wall; J98.4 Other disorders of lung; Z79.891 Long term (current) use of opiate analgesic; Z79.899 Other long term (current) drug therapy; Z79.83 Long term (current) use of bisphosphonates

== ENCOUNTER 2025-05-04 12:30 | Outpatient (RCR) | payer MEDICARE ==
[2025-05-10] MEDS ORDERED: PRED50TA57 PO (12:47)
[2025-05-10] MEDS ORDERED: AZIT-12 PO (12:47)
[2025-05-14] MEDS ORDERED: PRED20TA PO (15:13)
[2025-05-14] MEDS ORDERED: PRED10TA2 PO (15:13)
== END 2025-05-18 ==
LOC: M ONCR 12:30
PROVIDERS: ATTEND General Practice
DX: Z51.0 Encounter for antineoplastic radiation therapy (principal); C49.3 Malignant neoplasm of connective and soft tissue of thorax

== ENCOUNTER → 2025-05-18 | Outpatient (CLI) | payer MEDICARE ==
[~2025-05-18] MED LIST changes: +AZIT-12 PO; +PRED50TA57 PO
== END ==
LOC: M ONCR 14:00
PROVIDERS: ATTEND General Practice
DX: C49.3 Malignant neoplasm of connective and soft tissue of thorax (principal); Z92.3 Personal history of irradiation; R60.9 Edema, unspecified